=== PATIENT | male | born 1960 | race Caucasian/White ===

== ENCOUNTER 2020-05-05 10:52 | Outpatient (REF) | payer OTHER, SELFPAY ==
[2020-05-05 11:26] LABS: Basophils Absolute Auto 0.1 X10*3/uL (0.0-0.2); Basophils Percent Auto 0.9 % (0-2); Eosinophils Absolute Auto 0.2 X10*3/uL (0.0-0.4); Eosinophils Percent Auto 2.1 % (0-4); Hematocrit 39.8 % (42-52); Hemoglobin 13.1 g/dl (14.0-18.0); Imm Gran Abs Auto 0.05 X10*3/uL (0.00-0.03); Imm Gran Pct Auto 0.6 % (0.0-0.4); Lymphocytes Absolute Auto 2.1 X10*3/uL (1.2-4.9); MANUAL DIFF FLAG NO; Mean Corpuscular HGB Conc 32.9 g/dl (31.0-36.0); Mean Corpuscular Hemoglobin 28.3 pg (27.0-33.0); Monocytes Absolute Auto 0.8 X10*3/uL (0.1-1.2); Monocytes Percent Auto 9.4 % (2-11); Neutrophils Absolute Auto 4.9 X10*3/uL (2.0-8.3); Platelet Count 229 X10*3/uL (160-400); Red Blood Count 4.63 X10*6/uL (4.60-5.80); White Blood Count 8.1 X10*3/uL (4.8-10.8)
[2020-05-05 11:41] LABS: Estimated Average Glucose 157 mg/dL; Hemoglobin A1c % 7.1 %
[2020-05-05 11:52] LABS: Alanine Aminotransferase 36 U/L (0-40); Albumin Level 3.9 g/dL (3.5-5.0); Alkaline Phosphatase 51 U/L (39-117); Anion Gap 13 (12-20); Aspartate Amino Transferase 39 U/L (5-37); Bilirubin Total 0.9 mg/dL (0.0-1.0); Blood Urea Nitrogen 20 mg/dL (9-16); Carbon Dioxide 28 mmol/L (22-29); Chloride 101 mmol/L (96-108); Cholesterol 196 mg/dL; Estimated Glomerular Filt Rate 56; Glucose Fasting 191 mg/dL (60-99); HDL Cholesterol 44 mg/dL; LDL Cholesterol Calculated 127 mg/dl; Potassium 4.4 mmol/L (3.3-5.1); Sodium 138 mmol/L (135-145); Total Protein 7.1 g/dL (6.5-8.0); Triglycerides 129 mg/dL
== END 2020-05-05 10:53 | disposition home or self-care (01) ==
LOC: HO.LAB 10:52
PROVIDERS: PCP Internal Medicine; Visit Provider Internal Medicine
DX: Z00.00 Encounter for general adult medical examination without abnormal findings (principal); E11.9 Type 2 diabetes mellitus without complications
CPT/HCPCS: 36415; 80053; 80061; 83036; 85025

== ENCOUNTER 2020-05-07 10:49 | Outpatient (REF) | payer OTHER, SELFPAY ==
[2020-05-07 13:22] LABS: Creatinine Urine 138.96 mg/dL
== END 2020-05-07 10:50 | disposition home or self-care (01) ==
LOC: HO.LNP 10:49
PROVIDERS: Visit Provider Internal Medicine
DX: E11.9 Type 2 diabetes mellitus without complications (principal)
CPT/HCPCS: 82043

== ENCOUNTER → 2020-08-21 09:27 | Outpatient (BNVA) | payer OTHER, SELFPAY | PROVIDERS: PCP Internal Medicine; Visit Provider Nurse Practitioner Gerontology | DX: E11.65 Type 2 diabetes mellitus with hyperglycemia (principal); E11.42 Type 2 diabetes mellitus with diabetic polyneuropathy; E78.00 Pure hypercholesterolemia, unspecified; I10 Essential (primary) hypertension; E66.01 Morbid (severe) obesity due to excess calories; Z68.41 Body mass index [BMI] 40.0-44.9, adult | CPT/HCPCS: 82947 ==

== ENCOUNTER → 2020-09-06 09:58 | Outpatient (BNVA) | payer OTHER, SELFPAY | PROVIDERS: PCP Internal Medicine; Visit Provider Dietitian, Registered | DX: E11.65 Type 2 diabetes mellitus with hyperglycemia (principal); E11.42 Type 2 diabetes mellitus with diabetic polyneuropathy; I10 Essential (primary) hypertension; E78.5 Hyperlipidemia, unspecified; E66.01 Morbid (severe) obesity due to excess calories; Z68.41 Body mass index [BMI] 40.0-44.9, adult; Z87.891 Personal history of nicotine dependence; Z71.3 Dietary counseling and surveillance | CPT/HCPCS: 97802 ==

== ENCOUNTER → 2020-09-25 08:52 | Outpatient (BNVA) | payer OTHER, SELFPAY | PROVIDERS: PCP Internal Medicine; Visit Provider Nurse Practitioner Gerontology | DX: E11.65 Type 2 diabetes mellitus with hyperglycemia (principal); E11.42 Type 2 diabetes mellitus with diabetic polyneuropathy; E78.00 Pure hypercholesterolemia, unspecified; E66.01 Morbid (severe) obesity due to excess calories; I10 Essential (primary) hypertension; Z68.41 Body mass index [BMI] 40.0-44.9, adult | CPT/HCPCS: 82947 ==

== ENCOUNTER → 2020-10-26 08:46 | Outpatient (BNVA) | payer OTHER, SELFPAY | PROVIDERS: PCP Internal Medicine; Visit Provider Dietitian, Registered | DX: E11.42 Type 2 diabetes mellitus with diabetic polyneuropathy (principal) | CPT/HCPCS: 97803 ==

== ENCOUNTER → 2021-01-11 09:48 | Outpatient (BNVA) | payer OTHER, SELFPAY | PROVIDERS: PCP Internal Medicine; Visit Provider Dietitian, Registered | DX: E11.42 Type 2 diabetes mellitus with diabetic polyneuropathy (principal) | CPT/HCPCS: 97803 ==

== ENCOUNTER → 2021-01-15 10:16 | Outpatient (BNVA) | payer OTHER, SELFPAY | PROVIDERS: PCP Internal Medicine; Visit Provider Nurse Practitioner Gerontology | DX: E11.42 Type 2 diabetes mellitus with diabetic polyneuropathy (principal); E78.00 Pure hypercholesterolemia, unspecified; I10 Essential (primary) hypertension; E66.01 Morbid (severe) obesity due to excess calories; Z68.41 Body mass index [BMI] 40.0-44.9, adult | CPT/HCPCS: 82947; 83036 ==

== ENCOUNTER 2021-01-21 10:13 | Outpatient (REF) | payer OTHER, SELFPAY ==
[2021-01-21 11:28] LABS: Alanine Aminotransferase 45 U/L (0-40); Albumin Level 3.8 g/dL (3.5-5.0); Alkaline Phosphatase 65 U/L (39-117); Anion Gap 14 (12-20); Aspartate Amino Transferase 33 U/L (5-37); Bilirubin Total 0.7 mg/dL (0.0-1.0); Blood Urea Nitrogen 35 mg/dL (9-16); Calcium 9.1 mg/dL (8.4-10.2); Carbon Dioxide 26 mmol/L (22-29); Chloride 104 mmol/L (96-108); Cholesterol 148 mg/dL; Estimated Glomerular Filt Rate 37; Glucose Fasting 113 mg/dL (60-99); HDL Cholesterol 40 mg/dL; LDL Cholesterol Calculated 91 mg/dl; Potassium 4.1 mmol/L (3.3-5.1); Sodium 140 mmol/L (135-145); Triglycerides 86 mg/dL
[2021-01-21 11:50] LABS: Free T4 (Free Thyroxine) 0.93 ng/dL (0.71-1.85); Thyroid Stimulating Hormone 1.18 uIU/mL (0.32-4.0)
[2021-01-21 12:26] LABS: Vitamin B12 400 pg/mL (200-900)
[2021-01-21 13:53] LABS: Creatinine Urine 175.95 mg/dL; Microalbum/Creatinine Ratio Ur 3.4 ug/mg cr
[2021-01-22 08:16] LABS: LDL Cholesterol Direct 91 mg/dL (<100)
== END 2021-01-21 10:14 | disposition home or self-care (01) ==
LOC: HO.LAB 10:13
PROVIDERS: Visit Provider Nurse Practitioner Gerontology
DX: E11.65 Type 2 diabetes mellitus with hyperglycemia (principal)
CPT/HCPCS: 36415; 80053; 80061; 82043; 82607; 83721; 84439; 84443

== ENCOUNTER 2021-03-01 12:39 | Outpatient (REF) | payer OTHER, SELFPAY ==
[2021-03-01 13:36] LABS: Cholesterol 147 mg/dL; Glucose Fasting 108 mg/dL (60-99); HDL Cholesterol 43 mg/dL; LDL Cholesterol Calculated 86 mg/dl; Triglycerides 92 mg/dL
[2021-03-01 13:38] LABS: Alanine Aminotransferase 54 U/L (0-40); Albumin Level 3.9 g/dL (3.5-5.0); Alkaline Phosphatase 68 U/L (39-117); Anion Gap 13 (12-20); Aspartate Amino Transferase 44 U/L (5-37); Bilirubin Total 0.9 mg/dL (0.0-1.0); Blood Urea Nitrogen 22 mg/dL (9-16); Calcium 9.8 mg/dL (8.4-10.2); Carbon Dioxide 28 mmol/L (22-29); Chloride 103 mmol/L (96-108); Estimated Glomerular Filt Rate 43; Glucose Random 108 mg/dL (60-115); Iron 27 mcg/dL (45-160); Percent Iron Saturation 9 % (15-50); Potassium 4.3 mmol/L (3.3-5.1); Sodium 140 mmol/L (135-145); Total Iron Binding Capacity 286 mcg/dL (228-428); Total Protein 7.5 g/dL (6.5-8.0); Unsaturated Iron Binding 259 ug/dL; Uric Acid 11.4 mg/dL (3.4-7.0)
[2021-03-01 13:42] LABS: Estimated Average Glucose 120 mg/dL; Hemoglobin A1c % 5.8 %
[2021-03-01 13:57] LABS: Vitamin D 25-OH Total 26.7 ng/mL (>30)
[2021-03-01 15:57] LABS: Appearance Urine CLEAR; Color Urine YELLOW; Glucose Urine UA NEG (NEG); Leukocyte Esterase Urine NEG (NEG); Nitrite Urine NEG (NEG); Specific Gravity - Urine 1.025 (1.005-1.025); Urine Blood NEG (NEG); Urine Ketones NEG (NEG); Urine Protein NEG (NEG-TRACE)
[2021-03-01 16:18] LABS: Microalbum/Creatinine Ratio Ur 6.8 ug/mg cr; Protein/Creatinine Ratio, Ur 0.05 (<0.2); Total Protein Urine Random 20 mg/dL (<12)
[2021-03-04 11:55] LABS: Complement C3 183 mg/dL (82-185)
[2021-03-04 13:57] LABS: Calcium (PTHI) 9.3 mg/dL (8.6-10.3); PTHI 38 pg/mL (14-64)
== END 2021-03-01 12:40 | disposition home or self-care (01) ==
LOC: HO.LAB 12:39
PROVIDERS: Internal Medicine Nephrology; PCP Internal Medicine; Visit Provider Internal Medicine
DX: Z00.00 Encounter for general adult medical examination without abnormal findings (principal); E11.65 Type 2 diabetes mellitus with hyperglycemia
CPT/HCPCS: 36415; 80053; 80061; 81003; 82043; 82306; 82947; 83036; 83540; 83970; 84156; 84550; 86160

== ENCOUNTER → 2021-04-19 09:38 | Outpatient (BNVA) | payer OTHER, SELFPAY | PROVIDERS: PCP Internal Medicine; Visit Provider Dietitian, Registered | DX: E11.42 Type 2 diabetes mellitus with diabetic polyneuropathy (principal); Z71.3 Dietary counseling and surveillance | CPT/HCPCS: 97803 ==

== ENCOUNTER 2021-05-30 14:23 | Outpatient (REF) | payer OTHER, SELFPAY ==
--- NOTE | ~2021-05-30 | US_ITS ---
EXAMINATION: US RETROPERITONEAL LIMITED (RENAL ONLY) CLINICAL INFORMATION: CKD stage III renal failure. COMPARISON: Ultrasound abdomen complete 03/08/2018. TECHNIQUE: Real-time imaging of the kidneys. FINDINGS: RIGHT KIDNEY: 9.5 x 5.6 x 5.9 cm (SAG x AP x TRV). The kidney is normal in contour and echogenicity. Renal cortical thickness is normal. No calculi or focal parenchymal lesions. No hydronephrosis. LEFT KIDNEY: 12.8 x 5.6 x 5.2 cm (SAG x AP x TRV). The kidney is normal in size, contour, and echogenicity. Renal cortical thickness is normal. No calculi or focal parenchymal lesions. No hydronephrosis. US/US renal BI IMPRESSION: Small right kidney size compared to left side. Otherwise unremarkable.
== END 2021-05-30 14:24 | disposition home or self-care (01) ==
LOC: HO.HMGCX 14:23
PROVIDERS: PCP Internal Medicine; Visit Provider Internal Medicine Nephrology
DX: N18.31 Chronic kidney disease, stage 3a (principal)
CPT/HCPCS: 76775

== ENCOUNTER → 2021-07-22 09:23 | Outpatient (BNVA) | payer OTHER, SELFPAY | PROVIDERS: PCP Internal Medicine; Visit Provider Nurse Practitioner Gerontology | DX: E11.42 Type 2 diabetes mellitus with diabetic polyneuropathy (principal); E78.00 Pure hypercholesterolemia, unspecified; E66.01 Morbid (severe) obesity due to excess calories; I10 Essential (primary) hypertension; Z68.36 Body mass index [BMI] 36.0-36.9, adult; Z79.899 Other long term (current) drug therapy; Z79.84 Long term (current) use of oral hypoglycemic drugs | CPT/HCPCS: 82947; 83036 ==

== ENCOUNTER → 2021-08-20 08:43 | Outpatient (BNVA) | payer OTHER, SELFPAY | PROVIDERS: PCP Internal Medicine; Visit Provider Dietitian, Registered | DX: E11.42 Type 2 diabetes mellitus with diabetic polyneuropathy (principal) | CPT/HCPCS: 97803 ==

== ENCOUNTER → 2022-02-21 08:44 | Outpatient (BNVA) | payer OTHER, SELFPAY | PROVIDERS: PCP Internal Medicine; Visit Provider Dietitian, Registered | DX: E11.42 Type 2 diabetes mellitus with diabetic polyneuropathy (principal) | CPT/HCPCS: 97803 ==

== ENCOUNTER 2022-04-01 09:36 | Outpatient (REF) | payer OTHER, SELFPAY ==
[2022-04-01 11:23] LABS: Estimated Average Glucose 103 mg/dL; Hemoglobin A1c % 5.2 %
[2022-04-01 13:04] LABS: Creatinine Urine 110.39 mg/dL; Total Protein Urine Random 11 mg/dL (<12)
== END 2022-04-01 09:37 | disposition home or self-care (01) ==
LOC: HO.LAB 09:36
PROVIDERS: PCP Internal Medicine; Visit Provider Internal Medicine Nephrology
DX: I12.9 Hypertensive chronic kidney disease with stage 1 through stage 4 chronic kidney disease, or unspecified chronic kidney disease (principal); N18.31 Chronic kidney disease, stage 3a; E79.0 Hyperuricemia without signs of inflammatory arthritis and tophaceous disease
CPT/HCPCS: 36415; 83036; 84156

== ENCOUNTER 2022-05-19 06:38 | Day surgery (SDC) | payer OTHER, SELFPAY ==
--- NOTE | 2022-05-16 13:32 | P.CONAN_ITS ---
Documented by User: Ashley Patton NP 05/16/22 13:39 HPI - Anesthesia Eval Consult details Narrative: 61yo M for Colonoscopy PMFSH Active Problems Active Problems: All Active Problems (Updated 09/20/21 @ 09:43 by Nash Garcia MD) Type 2 diabetes mellitus with obesity (Acute) Type 2 diabetes mellitus with chronic kidney disease (Acute) Diabetes mellitus with coincident hypertension (Acute) Obesity due to excess calories (Acute) Type 2 diabetes mellitus with diabetic polyneuropathy (Acute) Diabetes type 2, uncontrolled (Acute) HTN (hypertension) (Acute) Hyperlipidemia (Acute) Diabetes mellitus (Acute) Past Medical History Medical History (Updated 05/19/22 @ 07:47 by Vanda Newell RN) Diabetes mellitus Diabetes mellitus with coincident hypertension Diabetes type 2, uncontrolled HTN (hypertension) Hyperlipidemia Kidney disease Obesity due to excess calories Type 2 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 Surgical History Surgical History Hx of tooth extraction Social History Social History Household Members: None Housing: House Alcohol intake: current Alcohol intake frequency: holidays/special occasions only Patient Tobacco Use Status: Former Tobacco user Tobacco use type: Cigarette e-Cigarette/Vaping Use: Never Used Second Hand Smoke Exposure: No Use of substances other than those prescribed or required for medical reasons: No Substance Use Type: Former Substance User and Marijuana Are you DNR?: No Advance Directives: No Advance Directives Information Provided: Yes How much weight loss: 2-13 pounds service: No Current occupational status: employed Cognitive needs: No Hearing needs: No Vision needs: No Meds Allergies Allergy/AdvReac Type Severity Reaction Status Date / Time No Known Allergies Allergy Verified 01/31/22 09:17 Home Medications Medication Instructions Recorded Confirmed Last Taken Type blood sugar diagnostic (Accu-Chek 01/15/21 01/31/22 Unknown History Guide test strips) blood-glucose meter (Accu-Chek 01/15/21 01/31/22 Unknown History Guide Me Glucose Meter) nifedipine 30 mg tablet,extended 30 mg PO DAILY 05/17/21 05/19/22 Unknown History release Exam Exam Date and Time: May 16, 2022 1332 Assessment and Plan Assessment Anesthesia Assessment: Chart Reviewed Documented by User: Gavi Link MD 05/19/22 08:16 [facility] Past Medical History Medical History (Updated 05/19/22 @ 07:47 by Vanda Newell RN) Diabetes mellitus Diabetes mellitus with coincident hypertension Diabetes type 2, uncontrolled HTN (hypertension) Hyperlipidemia Kidney disease Obesity due to excess calories Type 2 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 Family history of problems with anesthesia: No Surgical History Surgical History Hx of tooth extraction History of Problems with Anesthesia: No Social History Social History Household Members: None Housing: House Alcohol intake: current Alcohol intake frequency: holidays/special occasions only Patient Tobacco Use Status: Former Tobacco user Tobacco use type: Cigarette e-Cigarette/Vaping Use: Never Used Second Hand Smoke Exposure: No Use of substances other than those prescribed or required for medical reasons: No Substance Use Type: Former Substance User and Marijuana Are you DNR?: No Advance Directives: No Advance Directives Information Provided: Yes How much weight loss: 2-13 pounds service: No Current occupational status: employed Cognitive needs: No Hearing needs: No Vision needs: No Meds Allergies Allergy/AdvReac Type Severity Reaction Status Date / Time No Known Allergies Allergy Verified 01/31/22 09:17 Home Medications Medication Instructions Recorded Confirmed Last Taken Type blood sugar diagnostic (Accu-Chek 01/15/21 01/31/22 Unknown History Guide test strips) blood-glucose meter (Accu-Chek 01/15/21 01/31/22 Unknown History Guide Me Glucose Meter) nifedipine 30 mg tablet,extended 30 mg PO DAILY 05/17/21 05/19/22 Unknown History release Exam Airway Mallampati Class: III TM Dist: >3cm Neck ROM: Full Heart: rrr Lungs: cta Assessment and Plan Assessment Anesthesia Assessment: Anesthesia Plan Discussed Final Anesthetic Review Family History of Problems with Anesthesia: No History of Problems with Anesthesia: No NPO: Yes ASA Class: III Final Preanesthetic Review: No Changes in Pt Med Stat, Meds/Allgs Chart Reviewed and Consent Obtained/Reviewed Patient Risk: Intermediate Procedure Risk: Intermediate Anesthetic Plan Anesthetic Plan: MAC: Disposition: Standard PACU
[2022-05-19 07:47] VITALS: BMI 36.2
[2022-05-19 08:00] VITALS: BP 148/80; PULSE 74; RESP 16; TEMP 36.4; O2SAT 95
[2022-05-19 08:11] LABS: Glucose, Whole Blood 82 mg/dL (60-115)
[2022-05-19] MEDS: Lactated Ringers 1,000 ML 100 ML IVCONT (08:21)
[2022-05-19 09:50] VITALS: BP 116/63; PULSE 76; RESP 20; TEMP 36.9; O2SAT 98
--- NOTE | 2022-05-19 09:51 | PM.OP ---
Brief Operative Note Date of Service: 05/19/22 Pre-op diagnosis: Screening Post-op diagnosis: other (Diverticulosis) Procedure: Colonoscopy to the cecum Surgeon: John Clayton Anesthesia: MAC Was an Chemistry Department Chair used for this Procedure?: No Estimated blood loss (mL): 0 Pathology: none sent Condition: stable Disposition: PACU
[2022-05-19 10:05] VITALS: BP 132/77; PULSE 72; RESP 14; TEMP 36.9; O2SAT 100
--- NOTE | 2022-05-19 12:11 | OP_ITS ---
SURGEON: John Clayton MD INDICATIONS: The patient presents for evaluation of colorectal cancer screening. Full consent has been obtained from him for this, including risks of bleeding and perforation. PREOPERATIVE DIAGNOSIS: Colorectal cancer screening. POSTOPERATIVE DIAGNOSIS: PROCEDURE PERFORMED: Colonoscopy to the cecum. ESTIMATED BLOOD LOSS: COMPLICATIONS: ANESTHESIA: Monitored anesthesia care. ASSISTANTS: SPECIMENS: POSTOPERATIVE DIAGNOSES: Colorectal cancer screening, diverticulosis, and internal hemorrhoids. DESCRIPTION OF PROCEDURE: The patient was placed in the left lateral decubitus position. The digital rectal exam revealed no abnormalities. The Olympus video pediatric colonoscope was entered into the rectum and advanced to the cecum. Advancement to the cecum was difficult and required turning him to the supine position. Once in the cecum, I did identify normal-appearing cecal pouch with appendiceal orifice and a normal-appearing ileocecal valve. The entire cecum and ileocecal valve appeared normal. The scope was then slowly withdrawn assessing all mucosal surfaces carefully. Preparation was excellent after his 2-day prep. I did not visualize any sign of polyps, colitis nor angiodysplasia. There was a mild amount of sigmoid diverticulosis. In the rectum, the scope was retroflexed, visualizing small internal hemorrhoids, but no other pathology. The rectal mucosa appeared normal. The scope was straightened and withdrawn from the patient. He tolerated the procedure well and was returned to the recovery area in stable condition. IMPRESSION: 1. Diverticulosis. 2. Internal hemorrhoids. PLAN: Given his negative exam and negative family history, I would recommend a followup colonoscopy in 10 years for further screening. He would otherwise see me on a p.r.n. basis. He was advised to continue MiraLax and/or fiber supplements on a daily basis to help prevent constipation. MD RIP Mcdowell/DAVIAN / [id number] EDVIN
== END 2022-05-19 10:45 | disposition home or self-care (01) ==
PROVIDERS: PCP Internal Medicine; Visit Provider Internal Medicine
PROC: 0DJD8ZZ Inspection of Lower Intestinal Tract, Via Natural or Artificial Opening Endoscopic (ICD-10-PCS; CPT 45378; principal; 2022-05-19 08:40)
DX: Z12.11 Encounter for screening for malignant neoplasm of colon (principal); K57.30 Diverticulosis of large intestine without perforation or abscess without bleeding; K64.8 Other hemorrhoids; K59.00 Constipation, unspecified; I10 Essential (primary) hypertension; E78.5 Hyperlipidemia, unspecified; N28.9 Disorder of kidney and ureter, unspecified; E11.8 Type 2 diabetes mellitus with unspecified complications; Z79.85 Long-term (current) use of injectable non-insulin antidiabetic drugs; Z79.899 Other long term (current) drug therapy; Z87.891 Personal history of nicotine dependence
CPT/HCPCS: 45378; 82947

== ENCOUNTER 2022-08-17 15:33 | Inpatient (IN) | payer OTHER, SELFPAY ==
--- NOTE | ~2022-08-17 | XR_ITS ---
Examination: XR ankle RT 2V, XR ankle LT 2V Indication: pain Comparison: No pertinent prior studies are currently available for comparison. Technique: 3 views of each ankle obtained. Findings: Left: Mild soft tissue swelling about the ankle. Underlying bony structures are unremarkable with no acute fracture or dislocation seen. Ankle mortise appears intact. No significant ankle joint effusion. No radiopaque foreign body or soft tissue gas. Right: Mild soft tissue swelling seen laterally. There is a subtle curvilinear density along the inferior aspect of the lateral malleolus and a tiny nonspecific avulsion injury cannot be excluded in this location. Would clinically correlate for point tenderness. Ankle mortise appears intact. No other acute bony abnormality seen. Tiny calcaneal heel spur at the attachment point of the Achilles tendon and plantar aponeurosis. XR/XR ankle RT 2V Impression: Mild soft tissue swelling laterally. There is a subtle curvilinear density along the inferior aspect of the right lateral malleolus and a tiny nonspecific avulsion injury cannot be excluded in this location.
--- NOTE | ~2022-08-17 | XR_ITS ---
EXAMINATION: PORTABLE CHEST 1 VIEW CLINICAL INFORMATION: fall?. COMPARISON: No recent pertinent prior studies are available for comparison. TECHNIQUE: Portable frontal view of the chest was obtained. FINDINGS: The lungs are mildly hypoexpanded. No focal infiltrate, effusion, edema, or pneumothorax. Cardiac and mediastinal silhouettes are within normal limits for technique. No acute bony abnormality seen. XR/XR chest 1V IMPRESSION: Mildly hypoexpanded but otherwise no evidence of acute disease.
--- NOTE | ~2022-08-17 | XR_ITS ---
Examination: XR ankle RT 2V, XR ankle LT 2V Indication: pain Comparison: No pertinent prior studies are currently available for comparison. Technique: 3 views of each ankle obtained. Findings: Left: Mild soft tissue swelling about the ankle. Underlying bony structures are unremarkable with no acute fracture or dislocation seen. Ankle mortise appears intact. No significant ankle joint effusion. No radiopaque foreign body or soft tissue gas. Right: Mild soft tissue swelling seen laterally. There is a subtle curvilinear density along the inferior aspect of the lateral malleolus and a tiny nonspecific avulsion injury cannot be excluded in this location. Would clinically correlate for point tenderness. Ankle mortise appears intact. No other acute bony abnormality seen. Tiny calcaneal heel spur at the attachment point of the Achilles tendon and plantar aponeurosis. XR/XR ankle LT 2V Impression: Mild soft tissue swelling laterally. There is a subtle curvilinear density along the inferior aspect of the right lateral malleolus and a tiny nonspecific avulsion injury cannot be excluded in this location.
--- NOTE | ~2022-08-17 | XR_ITS ---
EXAMINATION: XR ABDOMEN KUB CLINICAL INDICATION: Constipation x10 days. COMPARISON: None. TECHNIQUE: AP x4 views of the abdomen. FINDINGS: There is stool throughout the colon with lesser involvement mid sigmoid. The rectum is distended to approximately 9 cm in diameter. There is no gaseous dilatation of bowel or abnormal collections of gas. No pneumatosis. The lung bases are clear. There are multilevel degenerative changes lower thoracic and lumbosacral spine. XR/XR KUB IMPRESSION: -Stool throughout colon. Rectum distended to 9 cm in diameter. -No gaseous dilatation of bowel or abnormal collections of gas. -Lung bases clear.
[2022-08-17 15:35] VITALS: BP 147/54; BP 162/80; PULSE 105; PULSE 96; RESP 22; TEMP 37.3; O2SAT 92; O2SAT 99; BMI 35.6
[2022-08-17 15:43] LABS: Glucose, Whole Blood 124 mg/dL (60-115)
--- NOTE | 2022-08-17 15:57 | ECG_ITS ---
Test Reason : fall Blood Pressure : / mmHG Vent. Rate : 102 BPM Atrial Rate : 102 BPM P-R Int : 124 ms QRS Dur : 082 ms QT Int : 360 ms P-R-T Axes : 024 010 010 degrees QTc Int : 469 ms Sinus tachycardia Nonspecific ST abnormality Abnormal ECG No previous ECGs available Referred By: Jesus Gomez Electronically Signed By:Rick Hernandez
[2022-08-17 16:12] LABS: Basophils Absolute Auto 0.1 X10*3/uL (0.0-0.2); Basophils Percent Auto 0.3 % (0-2); Eosinophils Percent Auto 0.1 % (0-4); Hemoglobin 15.4 g/dl (14.0-18.0); Imm Gran Abs Auto 0.15 X10*3/uL (0.00-0.03); Imm Gran Pct Auto 0.8 % (0.0-0.4); Lymphocytes Absolute Auto 1.1 X10*3/uL (1.2-4.9); Lymphocytes Percent Auto 5.5 % (20-40); MANUAL DIFF FLAG SCAN; Mean Corpuscular HGB Conc 32.8 g/dl (31.0-36.0); Mean Corpuscular Hemoglobin 27.4 pg (27.0-33.0); Mean Corpuscular Volume 83.5 fL (80.0-98.0); Mean Platelet Volume 11.4 fL (9.4-12.4); Monocytes Absolute Auto 2.2 X10*3/uL (0.1-1.2); Monocytes Percent Auto 11.7 % (2-11); Neutrophils Absolute Auto 15.6 x10*3/uL (2.0-8.3); Neutrophils Percent Auto 81.6 % (45-73); Platelet Count 283 X10*3/uL (160-400); Red Blood Count 5.63 X10*6/uL (4.60-5.80); Red Cell Distribution Width 14.5 % (11.0-16.0); SCAN SMEAR FLAG 1
--- NOTE | 2022-08-17 16:27 | ED.GENADULT ---
HPI - General Adult General Chief complaint: General Medical Stated complaint: UNABLE TO GET UP FROM PUDDLE OF WATER PER EMS Time Seen by Provider: 08/17/22 16:04 Source: patient Mode of arrival: EMS Limitations: no limitations History of Present Illness HPI narrative: Patient comes to the emergency room via ambulance from home. Patient states that 7 days ago, patient started having a gout flare in both ankles. Patient was unable to get out of bed for 2 days. Eventually, patient decided that he needed to drink water, somehow tried to get to the kitchen, patient states that he on his way back, some how he ended up in the bathroom floor. Patient states he does not remember what happened. Due to the ankle pain, patient states that he has been unable to get up for the last 5 days. Patient states that a neighbor went to check on him today, found him on the floor, called 911. Patient states that the pain in his ankles is very significant, denies any trauma. Denies any headache or neck pain. At this time, patient complaining of bilateral ankle pain, no other complaints. Related Data Home Medications Medication Instructions Recorded Confirmed blood sugar diagnostic (Accu-Chek 01/15/21 06/06/22 Guide test strips) blood-glucose meter (Accu-Chek 01/15/21 06/06/22 Guide Me Glucose Meter) Previous Rx's Medication Instructions Recorded metformin 500 mg tablet 500 mg PO BID 90 days #180 tabs 07/22/21 lisinopril 40 mg tablet 40 mg PO DAILY #90 tabs 09/09/21 metoprolol tartrate 100 mg tablet 100 mg PO BID #180 tabs 07/20/22 dulaglutide 3 mg/0.5 mL 3 mg (0.5 mL) subcut QWEEK 84 days 07/31/22 subcutaneous pen injector #6 mL (Trulicity) Allergies Allergy/AdvReac Type Severity Reaction Status Date / Time No Known Allergies Allergy Verified 06/06/22 09:34 Review of Systems Review of Systems: Constitutional : No Weight loss, No Fever, No Chills, No Night Sweats, No Fatigue, No Malaise ENT/Mouth : No Hearing loss, No Ear Pain, No Nasal Congestion, No Sinus Pain, No Hoarseness, No sore throat, No Rhinorrhea, No Swallowing Difficulty Eyes: No Eye Pain, No Swelling, No Redness, No Foreign Body, No Discharge, No Vision Changes Cardiovascular : No Chest Pain, No SOB, No Dyspnea on Exertion, No Orthopnea, No Edema, No Palpitations Respiratory : No Cough, No Sputum, No Wheezing, No Smoke Exposure, No Dyspnea Gastrointestinal : No Nausea, No Vomiting, No Diarrhea, No Constipation, No abdominal Pain, No Hematochezia, No Melena Genitourinary : no irregular bleeding, No Dysuria, No Urinary Frequency, No Hematuria, No Urinary Incontinence, No Urgency, No Flank Pain, No Urinary Flow Changes, No Hesitancy Musculoskeletal : Complaining of bilateral ankle pain, No Myalgias, No Joint Swelling Skin : No Skin Lesions, No rash Neuro : No Weakness, No Numbness, No Paresthesias, No Loss of Consciousness, No Dizziness, No Headache Psych : No Anxiety/Panic, No Depression, No SI/HI/AH/VH, No Social Issues, Heme/Lymph: No Bruising, No Bleeding,No Lymphadenopathy Endocrine : No Polyuria, No Polydipsia, No Temperature Intolerance PMFSH Past Medical History Medical History Diabetes mellitus Diabetes mellitus with coincident hypertension Diabetes type 2, uncontrolled HTN (hypertension) Hyperlipidemia Kidney disease Obesity due to excess calories 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 Social History Social History (Reviewed 01/31/22 @ 09:16 by Kristy Rocha [facility]LY [facility]) Household Members: None Housing: House Alcohol intake: never Patient Tobacco Use Status: Former Tobacco user Tobacco use type: Cigarette Smoked in Last 30 Days: No e-Cigarette/Vaping Use: Never Used Second Hand Smoke Exposure: No Use of substances other than those prescribed or required for medical reasons: No Substance Use Type: Former Substance User and Marijuana Advance Directives: No Advance Directives Information Provided: No service: No Current occupational status: employed Cognitive needs: No Hearing needs: No Vision needs: No Physical Exam ED Vital Signs: Vital Signs - 24 hr 08/17/22 15:35 08/17/22 16:43 08/17/22 18:03 Temperature 99.2 F 98.7 F Pulse Rate 105 H 103 H 97 Respiratory Rate 22 H 22 H 20 Blood Pressure 147/54 H 140/56 H 129/62 Pulse Oximetry 99 100 97 Oxygen Delivery Method Room Air Room Air Room Air 08/17/22 20:07 08/17/22 22:04 08/18/22 00:54 Temperature 99.4 F 98.4 F 98.8 F Pulse Rate 97 90 97 Respiratory Rate 18 16 Blood Pressure 129/74 164/80 H 135/72 Pulse Oximetry 100 97 97 Oxygen Delivery Method Room Air Room Air Room Air BMI result Body Mass Index 35.6 Const Other: Appearance: Alert. Oriented X3. No acute distress. Eyes: Pupils equal, round and reactive to light. ENT: Pharynx normal. Neck: Normal inspection. Neck supple. No lymph nodes noted. No crepitus CVS: Normal heart rate and rhythm. Pulses normal. Normal S1 and S2 Respiratory: No respiratory distress. Breath sounds normal. No Wheezing. No rales Abdomen: Soft and nontender. No rigidity. No distention. Skin: Skin warm and dry. Normal skin color. Normal skin turgor. Extremities: No lower extremity edema. No Lacerations. No Rash. Pain to palpation over both ankles, ankles are not swollen, no erythematous or additional warmth to touch Neuro: Oriented X 3. No motor deficit. No sensory deficit. Moving all extremities. No slurred speech. CN 2 through 12 grossly intact Psych: calm, cooperative, normal affect Course Course Course Narrative: All of patient's labs are pending Medications Administered Generic Name Dose Route Start Last Admin Trade Name Freq PRN Reason Stop Dose Admin Heparin Sodium (Porcine) 5,000 unit 08/17/22 23:45 08/17/22 23:50 Heparin Sodium,Porcine 5,000 Unit/Ml Vial SUBCUT 5,000 unit Q12H AYLIN Administration Lactated Ringer's 1,000 mls @ 100 mls/hr 08/17/22 23:45 08/17/22 23:50 Lr IVCONT 100 mls/hr .Q10H AYLIN Administration Discontinued Medications Generic Name Dose Route Start Last Admin Trade Name Freq PRN Reason Stop Dose Admin Sodium Chloride 2,000 mls @ 999 mls/hr 08/17/22 16:13 08/17/22 18:56 Ns IVCONT 08/17/22 18:13 Infused .Q2H1M ONE Infusion Medical Decision Making Medical Decision Making MDM Narrative: -patient's white blood cell count 19, likely reactive leukocytosis, no clear source of infection, no cellulitis present, x-ray negative, urinalysis negative -lactic acid elevated likely secondary to dehydration, patient also has acute kidney injury likely secondary to dehydration as well -patient being admitted for dehydration, acute kidney injury, generalized weakness, patient cannot get up -I discussed the patient with Dr. Bruno Admission/Observation Consideration of admission/observation: Escalation of care including admission/observation considered Consult Healthcare Provider Management of the patient was discussed with: Hospitalist Lab Data [facility] Lab Attestation statement: I reviewed the patient's lab results. 08/17/22 16:04 08/17/22 16:04 Labs: Lab Results 08/17/22 08/17/22 08/17/22 Range/Units 15:40 16:04 16:04 WBC 19.0 H (4.8-10.8) X10*3/uL RBC 5.63 (4.60-5.80) X10*6/uL Hgb 15.4 (14.0-18.0) g/dl Hct 47.0 (42.0-52.0) % MCV 83.5 (80.0-98.0) fL MCH 27.4 (27.0-33.0) pg MCHC 32.8 (31.0-36.0) g/dl RDW 14.5 (11.0-16.0) % Plt Count 283 (160-400) X10*3/uL MPV 11.4 (9.4-12.4) fL Immature Gran % (Auto) 0.8 H (0.0-0.4) % Neut % (Auto) 81.6 H (45-73) % Lymph % (Auto) 5.5 L (20-40) % [place] % (Auto) 11.7 H (2-11) % Eos % (Auto) 0.1 (0-4) % Baso % (Auto) 0.3 (0-2) % Lymph # (Auto) 1.1 L (1.2-4.9) X10*3/uL [place] # (Auto) 2.2 H (0.1-1.2) X10*3/uL Eos # (Auto) 0.0 (0.0-0.4) X10*3/uL Baso # (Auto) 0.1 (0.0-0.2) X10*3/uL Abs Immat Gran (auto) 0.15 H (0.00-0.03) X10*3/uL Absolute Neuts (auto) 15.6 H (2.0-8.3) x10*3/uL Absolute Nucleated RBC 0.000 (0.0-0.012) X10*3/uL Nucleated RBC % (auto) 0.0 (0.0-0.2) /100WBC Smear Tech's Comments VERIFIED PT (10.0-13.1) SEC INR (0.9-1.1) Sodium 143 (135-145) mmol/L Potassium 4.7 (3.3-5.1) mmol/L Chloride 103 (96-108) mmol/L Carbon Dioxide 22 (22-29) mmol/L Anion Gap 23 H (12-20) BUN 41 H (9-16) mg/dL Creatinine 1.55 H (0.5-1.4) mg/dL Estim Creat Clear Calc 63.1 Estimated GFR 46 POC Glucose 124 H (60-115) mg/dL Random Glucose 125 H (60-115) mg/dL Lactic Acid (0.5-2.0) mmol/L Lactic Acid F/U @ 2Hr (0.5-2.0) mmol/L Uric Acid (3.4-7.0) mg/dL Calcium 10.1 (8.4-10.2) mg/dL Magnesium (1.6-2.6) mg/dL Total Bilirubin (0.0-1.0) mg/dL Direct Bilirubin (0.0-0.5) mg/dL AST (5-37) U/L ALT (0-40) U/L Alkaline Phosphatase (39-117) U/L Total Creatine Kinase 1008 H (38-174) U/L Troponin I High Sens (<3.5-35.0) ng/L B-Natriuretic Peptide (<100) pg/mL Total Protein (6.5-8.0) g/dL Albumin (3.5-5.0) g/dL Lipase (8-78) U/L TSH (0.32-4.0) uIU/mL Urine Color Urine Appearance Urine pH (5.0-9.0) Ur Specific [place] (1.005-1.025) Urine Protein (Neg-Trace) mg/dL Urine Glucose (UA) (Negative) mg/dL Urine Ketones (Negative) mg/dL Urine Blood (Negative) Urine Nitrite (Negative) Ur Leukocyte Esterase (Negative) Urine RBC (0-2) /HPF Urine WBC (0-5) /HPF Ur Squamous Epith Cells (0-2) /HPF Urine Bacteria (None Seen) Hyaline Casts (0-2) /LPF Urine Opiates Screen (Not Detect) Urine Fentanyl Screen (Not Detect) Ur Barbiturates Screen (Not Detect) Ur Phencyclidine Scrn (Not Detect) Ur Amphetamines Screen (Not Detect) U Benzodiazepines Scrn (Not Detect) Urine Cocaine Screen (Not Detect) U Marijuana (THC) Screen (Not Detect) Ethyl Alcohol mg/dL 08/17/22 08/17/22 08/17/22 Range/Units 16:04 16:05 16:28 WBC (4.8-10.8) X10*3/uL RBC (4.60-5.80) X10*6/uL Hgb (14.0-18.0) g/dl Hct (42.0-52.0) % MCV (80.0-98.0) fL MCH (27.0-33.0) pg MCHC (31.0-36.0) g/dl RDW (11.0-16.0) % Plt Count (160-400) X10*3/uL MPV (9.4-12.4) fL Immature Gran % (Auto) (0.0-0.4) % Neut % (Auto) (45-73) % Lymph % (Auto) (20-40) % [place] % (Auto) (2-11) % Eos % (Auto) (0-4) % Baso % (Auto) (0-2) % Lymph # (Auto) (1.2-4.9) X10*3/uL [place] # (Auto) (0.1-1.2) X10*3/uL Eos # (Auto) (0.0-0.4) X10*3/uL Baso # (Auto) (0.0-0.2) X10*3/uL Abs Immat Gran (auto) (0.00-0.03) X10*3/uL Absolute Neuts (auto) (2.0-8.3) x10*3/uL Absolute Nucleated RBC (0.0-0.012) X10*3/uL Nucleated RBC % (auto) (0.0-0.2) /100WBC Smear Tech's Comments PT (10.0-13.1) SEC INR (0.9-1.1) Sodium (135-145) mmol/L Potassium (3.3-5.1) mmol/L Chloride (96-108) mmol/L Carbon Dioxide (22-29) mmol/L Anion Gap (12-20) BUN (9-16) mg/dL Creatinine (0.5-1.4) mg/dL Estim Creat Clear Calc Estimated GFR POC Glucose (60-115) mg/dL Random Glucose (60-115) mg/dL Lactic Acid 2.5 H* (0.5-2.0) mmol/L Lactic Acid F/U @ 2Hr (0.5-2.0) mmol/L Uric Acid (3.4-7.0) mg/dL Calcium (8.4-10.2) mg/dL Magnesium (1.6-2.6) mg/dL Total Bilirubin (0.0-1.0) mg/dL Direct Bilirubin (0.0-0.5) mg/dL AST (5-37) U/L ALT (0-40) U/L Alkaline Phosphatase (39-117) U/L Total Creatine Kinase (38-174) U/L Troponin I High Sens 41.2 H (<3.5-35.0) ng/L B-Natriuretic Peptide 135 H (<100) pg/mL Total Protein (6.5-8.0) g/dL Albumin (3.5-5.0) g/dL Lipase (8-78) U/L TSH (0.32-4.0) uIU/mL Urine Color Urine Appearance Urine pH (5.0-9.0) Ur Specific [place] (1.005-1.025) Urine Protein (Neg-Trace) mg/dL Urine Glucose (UA) (Negative) mg/dL Urine Ketones (Negative) mg/dL Urine Blood (Negative) Urine Nitrite (Negative) Ur Leukocyte Esterase (Negative) Urine RBC (0-2) /HPF Urine WBC (0-5) /HPF Ur Squamous Epith Cells (0-2) /HPF Urine Bacteria (None Seen) Hyaline Casts (0-2) /LPF Urine Opiates Screen (Not Detect) Urine Fentanyl Screen (Not Detect) Ur Barbiturates Screen (Not Detect) Ur Phencyclidine Scrn (Not Detect) Ur Amphetamines Screen (Not Detect) U Benzodiazepines Scrn (Not Detect) Urine Cocaine Screen (Not Detect) U Marijuana (THC) Screen (Not Detect) Ethyl Alcohol mg/dL 08/17/22 08/17/22 08/17/22 Range/Units 16:35 16:58 16:58 WBC (4.8-10.8) X10*3/uL RBC (4.60-5.80) X10*6/uL Hgb (14.0-18.0) g/dl Hct (42.0-52.0) % MCV (80.0-98.0) fL MCH (27.0-33.0) pg MCHC (31.0-36.0) g/dl RDW (11.0-16.0) % Plt Count (160-400) X10*3/uL MPV (9.4-12.4) fL Immature Gran % (Auto) (0.0-0.4) % Neut % (Auto) (45-73) % Lymph % (Auto) (20-40) % [place] % (Auto) (2-11) % Eos % (Auto) (0-4) % Baso % (Auto) (0-2) % Lymph # (Auto) (1.2-4.9) X10*3/uL [place] # (Auto) (0.1-1.2) X10*3/uL Eos # (Auto) (0.0-0.4) X10*3/uL Baso # (Auto) (0.0-0.2) X10*3/uL Abs Immat Gran (auto) (0.00-0.03) X10*3/uL Absolute Neuts (auto) (2.0-8.3) x10*3/uL Absolute Nucleated RBC (0.0-0.012) X10*3/uL Nucleated RBC % (auto) (0.0-0.2) /100WBC Smear Tech's Comments PT 15.3 H (10.0-13.1) SEC INR 1.3 H (0.9-1.1) Sodium (135-145) mmol/L Potassium (3.3-5.1) mmol/L Chloride (96-108) mmol/L Carbon Dioxide (22-29) mmol/L Anion Gap (12-20) BUN (9-16) mg/dL Creatinine (0.5-1.4) mg/dL Estim Creat Clear Calc Estimated GFR POC Glucose (60-115) mg/dL Random Glucose (60-115) mg/dL Lactic Acid (0.5-2.0) mmol/L Lactic Acid F/U @ 2Hr (0.5-2.0) mmol/L Uric Acid (3.4-7.0) mg/dL Calcium (8.4-10.2) mg/dL Magnesium (1.6-2.6) mg/dL Total Bilirubin (0.0-1.0) mg/dL Direct Bilirubin (0.0-0.5) mg/dL AST (5-37) U/L ALT (0-40) U/L Alkaline Phosphatase (39-117) U/L Total Creatine Kinase (38-174) U/L Troponin I High Sens (<3.5-35.0) ng/L B-Natriuretic Peptide (<100) pg/mL Total Protein (6.5-8.0) g/dL Albumin (3.5-5.0) g/dL Lipase (8-78) U/L TSH (0.32-4.0) uIU/mL Urine Color Dark Yellow Urine Appearance Clear Urine pH 5.5 (5.0-9.0) Ur Specific [place] 1.025 (1.005-1.025) Urine Protein 100 (2+) H (Neg-Trace) mg/dL Urine Glucose (UA) 250 H (Negative) mg/dL Urine Ketones 15 (Negative) mg/dL Urine Blood Moderate (2+) H (Negative) Urine Nitrite Negative (Negative) Ur Leukocyte Esterase Negative (Negative) Urine RBC 0-2 (0-2) /HPF Urine WBC 0-5 (0-5) /HPF Ur Squamous Epith Cells 0-2 (0-2) /HPF Urine Bacteria None Seen (None Seen) Hyaline Casts 11-20 (0-2) /LPF Urine Opiates Screen Not Detected (Not Detect) Urine Fentanyl Screen Not Detected (Not Detect) Ur Barbiturates Screen Not Detected (Not Detect) Ur Phencyclidine Scrn Not Detected (Not Detect) Ur Amphetamines Screen Not Detected (Not Detect) U Benzodiazepines Scrn Not Detected (Not Detect) Urine Cocaine Screen Not Detected (Not Detect) U Marijuana (THC) Screen Not Detected (Not Detect) Ethyl Alcohol mg/dL 08/17/22 08/17/22 08/17/22 Range/Units 17:32 17:32 19:28 WBC (4.8-10.8) X10*3/uL RBC (4.60-5.80) X10*6/uL Hgb (14.0-18.0) g/dl Hct (42.0-52.0) % MCV (80.0-98.0) fL MCH (27.0-33.0) pg MCHC (31.0-36.0) g/dl RDW (11.0-16.0) % Plt Count (160-400) X10*3/uL MPV (9.4-12.4) fL Immature Gran % (Auto) (0.0-0.4) % Neut % (Auto) (45-73) % Lymph % (Auto) (20-40) % [place] % (Auto) (2-11) % Eos % (Auto) (0-4) % Baso % (Auto) (0-2) % Lymph # (Auto) (1.2-4.9) X10*3/uL [place] # (Auto) (0.1-1.2) X10*3/uL Eos # (Auto) (0.0-0.4) X10*3/uL Baso # (Auto) (0.0-0.2) X10*3/uL Abs Immat Gran (auto) (0.00-0.03) X10*3/uL Absolute Neuts (auto) (2.0-8.3) x10*3/uL Absolute Nucleated RBC (0.0-0.012) X10*3/uL Nucleated RBC % (auto) (0.0-0.2) /100WBC Smear Tech's Comments PT (10.0-13.1) SEC INR (0.9-1.1) Sodium (135-145) mmol/L Potassium (3.3-5.1) mmol/L Chloride (96-108) mmol/L Carbon Dioxide (22-29) mmol/L Anion Gap (12-20) BUN (9-16) mg/dL Creatinine (0.5-1.4) mg/dL Estim Creat Clear Calc Estimated GFR POC Glucose (60-115) mg/dL Random Glucose (60-115) mg/dL Lactic Acid (0.5-2.0) mmol/L Lactic Acid F/U @ 2Hr 1.3 (0.5-2.0) mmol/L Uric Acid 7.8 H (3.4-7.0) mg/dL Calcium (8.4-10.2) mg/dL Magnesium 2.2 (1.6-2.6) mg/dL Total Bilirubin 1.9 H (0.0-1.0) mg/dL Direct Bilirubin 0.8 H (0.0-0.5) mg/dL AST 74 H (5-37) U/L ALT 64 H (0-40) U/L Alkaline Phosphatase 72 (39-117) U/L Total Creatine Kinase (38-174) U/L Troponin I High Sens (<3.5-35.0) ng/L B-Natriuretic Peptide (<100) pg/mL Total Protein 6.6 (6.5-8.0) g/dL Albumin 3.0 L (3.5-5.0) g/dL Lipase 21 (8-78) U/L TSH 0.66 (0.32-4.0) uIU/mL Urine Color Urine Appearance Urine pH (5.0-9.0) Ur Specific [place] (1.005-1.025) Urine Protein (Neg-Trace) mg/dL Urine Glucose (UA) (Negative) mg/dL Urine Ketones (Negative) mg/dL Urine Blood (Negative) Urine Nitrite (Negative) Ur Leukocyte Esterase (Negative) Urine RBC (0-2) /HPF Urine WBC (0-5) /HPF Ur Squamous Epith Cells (0-2) /HPF Urine Bacteria (None Seen) Hyaline Casts (0-2) /LPF Urine Opiates Screen (Not Detect) Urine Fentanyl Screen (Not Detect) Ur Barbiturates Screen (Not Detect) Ur Phencyclidine Scrn (Not Detect) Ur Amphetamines Screen (Not Detect) U Benzodiazepines Scrn (Not Detect) Urine Cocaine Screen (Not Detect) U Marijuana (THC) Screen (Not Detect) Ethyl Alcohol < 10 mg/dL 08/17/22 Range/Units 23:40 WBC (4.8-10.8) X10*3/uL RBC (4.60-5.80) X10*6/uL Hgb (14.0-18.0) g/dl Hct (42.0-52.0) % MCV (80.0-98.0) fL MCH (27.0-33.0) pg MCHC (31.0-36.0) g/dl RDW (11.0-16.0) % Plt Count (160-400) X10*3/uL MPV (9.4-12.4) fL Immature Gran % (Auto) (0.0-0.4) % Neut % (Auto) (45-73) % Lymph % (Auto) (20-40) % [place] % (Auto) (2-11) % Eos % (Auto) (0-4) % Baso % (Auto) (0-2) % Lymph # (Auto) (1.2-4.9) X10*3/uL [place] # (Auto) (0.1-1.2) X10*3/uL Eos # (Auto) (0.0-0.4) X10*3/uL Baso # (Auto) (0.0-0.2) X10*3/uL Abs Immat Gran (auto) (0.00-0.03) X10*3/uL Absolute Neuts (auto) (2.0-8.3) x10*3/uL Absolute Nucleated RBC (0.0-0.012) X10*3/uL Nucleated RBC % (auto) (0.0-0.2) /100WBC Smear Tech's Comments PT (10.0-13.1) SEC INR (0.9-1.1) Sodium (135-145) mmol/L Potassium (3.3-5.1) mmol/L Chloride (96-108) mmol/L Carbon Dioxide (22-29) mmol/L Anion Gap (12-20) BUN (9-16) mg/dL Creatinine (0.5-1.4) mg/dL Estim Creat Clear Calc Estimated GFR POC Glucose (60-115) mg/dL Random Glucose (60-115) mg/dL Lactic Acid (0.5-2.0) mmol/L Lactic Acid F/U @ 2Hr (0.5-2.0) mmol/L Uric Acid (3.4-7.0) mg/dL Calcium (8.4-10.2) mg/dL Magnesium (1.6-2.6) mg/dL Total Bilirubin (0.0-1.0) mg/dL Direct Bilirubin (0.0-0.5) mg/dL AST (5-37) U/L ALT (0-40) U/L Alkaline Phosphatase (39-117) U/L Total Creatine Kinase (38-174) U/L Troponin I High Sens 28.9 (<3.5-35.0) ng/L B-Natriuretic Peptide (<100) pg/mL Total Protein (6.5-8.0) g/dL Albumin (3.5-5.0) g/dL Lipase (8-78) U/L TSH (0.32-4.0) uIU/mL Urine Color Urine Appearance Urine pH (5.0-9.0) Ur Specific [place] (1.005-1.025) Urine Protein (Neg-Trace) mg/dL Urine Glucose (UA) (Negative) mg/dL Urine Ketones (Negative) mg/dL Urine Blood (Negative) Urine Nitrite (Negative) Ur Leukocyte Esterase (Negative) Urine RBC (0-2) /HPF Urine WBC (0-5) /HPF Ur Squamous Epith Cells (0-2) /HPF Urine Bacteria (None Seen) Hyaline Casts (0-2) /LPF Urine Opiates Screen (Not Detect) Urine Fentanyl Screen (Not Detect) Ur Barbiturates Screen (Not Detect) Ur Phencyclidine Scrn (Not Detect) Ur Amphetamines Screen (Not Detect) U Benzodiazepines Scrn (Not Detect) Urine Cocaine Screen (Not Detect) U Marijuana (THC) Screen (Not Detect) Ethyl Alcohol mg/dL Radiology Impression Discussion of test interpretation with radiology: I have reviewed the radiologist's reading. Radiologist Impression: The lungs are mildly hypoexpanded. No focal infiltrate, effusion, edema, or pneumothorax. Cardiac and mediastinal silhouettes are within normal limits for technique. No acute bony abnormality seen. XR/XR chest 1V IMPRESSION: Mildly hypoexpanded but otherwise no evidence of acute disease. ? Findings: Left: Mild soft tissue swelling about the ankle. Underlying bony structures are unremarkable with no acute fracture or dislocation seen. Ankle mortise appears intact. No significant ankle joint effusion. No radiopaque foreign body or soft tissue gas. Right: Mild soft tissue swelling seen laterally. There is a subtle curvilinear density along the inferior aspect of the lateral malleolus and a tiny nonspecific avulsion injury cannot be excluded in this location. Would clinically correlate for point tenderness. Ankle mortise appears intact. No other acute bony abnormality seen. Tiny calcaneal heel spur at the attachment point of the Achilles tendon and plantar aponeurosis. XR/XR ankle RT 2V Impression: Mild soft tissue swelling laterally. There is a subtle curvilinear density along the inferior aspect of the right lateral malleolus and a tiny nonspecific avulsion injury cannot be excluded in this location. ? Critical Care Time Critical Care Time Critical Care Time: Yes Total Critical Care Time: 60 Attestation: Please follow-up with your primary care physician tomorrow. If you have any worsening or new symptoms, please return to the emergency room or call 911 Discharge Plan Discharge Clinical Impression: Acute kidney injury, Dehydration Patient Disposition: Admitted As Inpatient Prescriptions: No Action lisinopril 40 mg tablet 40 mg PO DAILY Qty: 90 8RF metoprolol tartrate 100 mg tablet 100 mg PO BID Qty: 180 1RF Trulicity 3 mg/0.5 mL pen injector 3 mg subcut QWEEK 84 Days Qty: 6 0RF (DME) blood-glucose meter [Accu-Chek Guide Me Glucose Mtr] Misc See Rx Instructions .Route Rx Instructions: As directed (DME) Accu-Chek Guide test strips Strip See Rx Instructions .Route Rx Instructions: As directed one time a day metformin 500 mg tablet 500 mg PO BID 90 Days Qty: 180 3RF
[2022-08-17 16:29] LABS: Lactic Acid 2.5 mmol/L (0.5-2.0)
[2022-08-17] MEDS: 0.9 % Sodium Chloride 2,000 ML 999 ML IVCONT (16:36)
--- NOTE | 2022-08-17 16:38 | PC.NURSE ---
pt AOX4, brought in by ems after being found by neighbor in bathroom. pt was down for several days. pt is alert, aware of situation, but is unsure how he ended up on the floor besides that he was experiencing significant gout perri and went to get a drink of water. rectal temp in triage WNL. other vitals stable as well labs drawn, blood cultures drawn, awaiting EKG. fluids hanging per MAY.
[2022-08-17 16:39] LABS: Troponin-I High Sensitivity 41.2 ng/L (<3.5-35.0)
[2022-08-17 16:40] LABS: Anion Gap 23 (12-20); Blood Urea Nitrogen 41 mg/dL (9-16); Calcium 10.1 mg/dL (8.4-10.2); Carbon Dioxide 22 mmol/L (22-29); Chloride 103 mmol/L (96-108); Creatinine Clr Calc Pharmacy 63.1; Estimated Glomerular Filt Rate 46; Glucose Random 125 mg/dL (60-115); Potassium 4.7 mmol/L (3.3-5.1); Sodium 143 mmol/L (135-145)
[2022-08-17 16:43] VITALS: BP 140/56; PULSE 103; RESP 22; TEMP 37.1; O2SAT 100
[2022-08-17 16:45] LABS: SLIDE REVIEW VERIFIED
[2022-08-17 16:59] LABS: INTERNATIONAL NORM RATIO 1.3 (0.9-1.1); Prothrombin Time 15.3 SEC (10.0-13.1)
[2022-08-17 17:12] LABS: B Type Natriuretic Peptide 135 pg/mL (<100)
[2022-08-17 17:18] LABS: Appearance Urine Clear; Color Urine Dark Yellow; Glucose Urine UA 250 mg/dL (Negative); Leukocyte Esterase Urine Negative (Negative); Nitrite Urine Negative (Negative); PH 5.5 (5.0-9.0); Specific Gravity - Urine 1.025 (1.005-1.025); UMIC TRIGGER UACC YES; Urine Blood Moderate (2+) (Negative); Urine Ketones 15 mg/dL (Negative); Urine Protein 100 (2+) mg/dL (Neg-Trace)
[2022-08-17 17:31] LABS: Bacteria Urine None Seen (None Seen); RBC Urine 0-2 /HPF (0-2); Squamous Epithelial Cell Urine 0-2 /HPF (0-2); WBC Urine 0-5 /HPF (0-5)
[2022-08-17 18:00] LABS: Alanine Aminotransferase 64 U/L (0-40); Alkaline Phosphatase 72 U/L (39-117); Aspartate Amino Transferase 74 U/L (5-37); Bilirubin Direct 0.8 mg/dL (0.0-0.5); Bilirubin Total 1.9 mg/dL (0.0-1.0); Lipase 21 U/L (8-78); Magnesium 2.2 mg/dL (1.6-2.6); Total Protein 6.6 g/dL (6.5-8.0)
[2022-08-17 18:01] LABS: Ethanol < 10 mg/dL; Uric Acid 7.8 mg/dL (3.4-7.0)
[2022-08-17 18:03] VITALS: BP 129/62; PULSE 97; RESP 20; O2SAT 97
[2022-08-17 18:08] LABS: Reflex Lactate? Lactic Acid Added
[2022-08-17 18:13] LABS: TSH reflex Free T4 0.66 uIU/mL (0.32-4.0)
[2022-08-17 19:46] LABS: ~Lactic Acid-LAB USE ONLY 1.3 mmol/L (0.5-2.0)
[2022-08-17 19:51] LABS: Amphetamine Screen Urine Not Detected (Not Detect); Barbiturates, Urine Not Detected (Not Detect); Benzodiazepines Screen Urine Not Detected (Not Detect); Cannabinoid Screen Urine Not Detected (Not Detect); Cocaine Screen Urine Not Detected (Not Detect); Fentanyl, urine Not Detected (Not Detect); Opiate Screen Urine Not Detected (Not Detect); Phencyclidine Screen Urine Not Detected (Not Detect)
[2022-08-17 20:07] VITALS: BP 129/74; PULSE 97; RESP 18; TEMP 37.4; O2SAT 100
--- NOTE | 2022-08-17 20:16 | PC.NURSE ---
fluids finished infusing, pt resting, vitals stable. will cont to [facility]
[2022-08-17 22:04] VITALS: BP 164/80; PULSE 90; TEMP 36.9; O2SAT 97
[2022-08-17] MEDS: Heparin Sodium,Porcine 5,000 UNIT/ML VIAL 5000 UNIT SUBCUT (23:50)
[2022-08-17] MEDS: Lactated Ringers 1,000 ML 100 ML IVCONT (23:50)
--- NOTE | 2022-08-17 23:52 | P.HPHOSP_ITS ---
History of Present Illness Date of Service: 08/17/22 Chief Complaint: Fall and inability to get up 61-year-old male with past medical history of diabetes, HTN, HLD, history of CKD, gout presents to the hospital after falling in the bathroom not being able to get up. Patient reports that he usually gets a flare of gout and this time it was very unusual that he got gout in both his ankles and both his knees as a result he had significant pain. He lives alone, the pain caused him to be bed- bound for 2 days. He states that he realize he was feeling dehydrated and made himself get up to go to the bathroom to get some water. While in the water he sat down-denies losing consciousness denies falling, denies any head trauma, denies any dizziness or headache-and was unable to get off the floor. Patient states that he was on the floor for 5 days when asked him how he knew it was 5 days he states that he was able to keep track of time. After 5 days of trying to get out of the bathroom patient finally called for help and his neighbor heard him which called the ambulance and brought him into the hospital. He states that his knees and ankles are feeling significantly better, he did not use any medications, he reports that he used to use indomethacin for flares but this was stopped due to his underlying CKD. He currently reports no chest pain, no abdominal pain, no nausea or vomiting, no diarrhea constipation, no shortness of breath. No urinary symptoms and no lower extremity edema. On arrival to the ED patient hemodynamically stable with a heart rate of 105, respiratory rate of 22, temp of 99.2 degrees Labs are significant for WBC count of 19.0, INR of 1.3, creatinine of 1.55 which is around his baseline, lactic acid of 2.5, uric acid of 7.8, CPK of 1000, troponin 41, BNP of 135, UA shows no acute infection, urine drug screen negative Patient started on some IV fluids and will be admitted for further management Review of Systems Review of Systems: Yes all other systems are reviewed and are negative [facility] Medical History Diabetes mellitus Diabetes mellitus with coincident hypertension Diabetes type 2, uncontrolled HTN (hypertension) Hyperlipidemia Kidney disease Obesity due to excess calories 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 Surgical History Hx of tooth extraction Social History Household Members: None Housing: House Alcohol intake: never Patient Tobacco Use Status: Former Tobacco user Tobacco use type: Cigarette Smoked in Last 30 Days: No e-Cigarette/Vaping Use: Never Used Second Hand Smoke Exposure: No Use of substances other than those prescribed or required for medical reasons: No Substance Use Type: Former Substance User and Marijuana Advance Directives: No Advance Directives Information Provided: No service: No Current occupational status: employed Cognitive needs: No Hearing needs: No Vision needs: No Meds Allergies Allergy/AdvReac Type Severity Reaction Status Date / Time No Known Allergies Allergy Verified 06/06/22 09:34 Home Medications Medication Instructions Recorded Confirmed Last Taken Type blood sugar diagnostic (Accu-Chek 01/15/21 06/06/22 Unknown History Guide test strips) blood-glucose meter (Accu-Chek 01/15/21 06/06/22 Unknown History Guide Me Glucose Meter) Physical Exam Vital Signs and Narrative: Vital Signs: Last Vital Signs Temp 98.4 F 08/17/22 22:04 Pulse 90 08/17/22 22:04 Resp 18 08/17/22 20:07 BP 164/80 H 08/17/22 22:04 Pulse Ox 97 08/17/22 22:04 O2 Del Method Room Air 08/17/22 22:04 BMI result Body Mass Index 35.6 Const: General: cooperative and no acute distress Orientation/consciousness: patient oriented x3 Eyes: General: appearance normal, both eyes and all related structures Pupils: Equal, round and reactive pupils present Resp: Effort & Inspection: normal respiratory effort Auscultation: clear to auscultation bilaterally Cardio: Rate: regular rate Rhythm: regular rhythm GI: Palpation (GI): Soft to palpation Auscultation: normal bowel sounds Skin: General skin exam: no rashes or lesions noted Neuro: General: patient oriented x3 Cranial nerves: Yes Equal, round and reactive pupils present Cognition (Neuro): normal cognition Extrem: Other: There is slight effusion was mild warmth in the left knee with no erythema, or tenderness. No tenderness in the ankles General: Yes no pedal edema Results Labs 08/17/22 16:04 08/17/22 16:04 Labs: Laboratory Results - last 24 hr 08/17/22 08/17/22 08/17/22 15:40 16:04 16:04 MCV 83.5 MCH 27.4 MCHC 32.8 RDW 14.5 Plt Count 283 MPV 11.4 Immature Gran % (Auto) 0.8 H Neut % (Auto) 81.6 H Lymph % (Auto) 5.5 L [place] % (Auto) 11.7 H Eos % (Auto) 0.1 Baso % (Auto) 0.3 Lymph # (Auto) 1.1 L [place] # (Auto) 2.2 H Eos # (Auto) 0.0 Baso # (Auto) 0.1 Abs Immat Gran (auto) 0.15 H Absolute Neuts (auto) 15.6 H Absolute Nucleated RBC 0.000 Nucleated RBC % (auto) 0.0 Smear Tech's Comments VERIFIED PT INR Anion Gap 23 H Estim Creat Clear Calc 63.1 Estimated GFR 46 POC Glucose 124 H Random Glucose 125 H Lactic Acid Lactic Acid F/U @ 2Hr Uric Acid Calcium 10.1 Magnesium Total Bilirubin Direct Bilirubin AST ALT Alkaline Phosphatase Total Creatine Kinase 1008 H Troponin I High Sens B-Natriuretic Peptide Total Protein Albumin Lipase TSH Urine Color Urine Appearance Urine pH Ur Specific [place] Urine Protein Urine Glucose (UA) Urine Ketones Urine Blood Urine Nitrite Ur Leukocyte Esterase Urine RBC Urine WBC Ur Squamous Epith Cells Urine Bacteria Hyaline Casts Urine Opiates Screen Urine Fentanyl Screen Ur Barbiturates Screen Ur Phencyclidine Scrn Ur Amphetamines Screen U Benzodiazepines Scrn Urine Cocaine Screen U Marijuana (THC) Screen Ethyl Alcohol 08/17/22 08/17/22 08/17/22 16:04 16:05 16:28 MCV MCH MCHC RDW Plt Count MPV Immature Gran % (Auto) Neut % (Auto) Lymph % (Auto) [place] % (Auto) Eos % (Auto) Baso % (Auto) Lymph # (Auto) [place] # (Auto) Eos # (Auto) Baso # (Auto) Abs Immat Gran (auto) Absolute Neuts (auto) Absolute Nucleated RBC Nucleated RBC % (auto) Smear Tech's Comments PT INR Anion Gap Estim Creat Clear Calc Estimated GFR POC Glucose Random Glucose Lactic Acid 2.5 H* Lactic Acid F/U @ 2Hr Uric Acid Calcium Magnesium Total Bilirubin Direct Bilirubin AST ALT Alkaline Phosphatase Total Creatine Kinase Troponin I High Sens 41.2 H B-Natriuretic Peptide 135 H Total Protein Albumin Lipase TSH Urine Color Urine Appearance Urine pH Ur Specific [place] Urine Protein Urine Glucose (UA) Urine Ketones Urine Blood Urine Nitrite Ur Leukocyte Esterase Urine RBC Urine WBC Ur Squamous Epith Cells Urine Bacteria Hyaline Casts Urine Opiates Screen Urine Fentanyl Screen Ur Barbiturates Screen Ur Phencyclidine Scrn Ur Amphetamines Screen U Benzodiazepines Scrn Urine Cocaine Screen U Marijuana (THC) Screen Ethyl Alcohol 08/17/22 08/17/22 08/17/22 16:35 16:58 16:58 MCV MCH MCHC RDW Plt Count MPV Immature Gran % (Auto) Neut % (Auto) Lymph % (Auto) [place] % (Auto) Eos % (Auto) Baso % (Auto) Lymph # (Auto) [place] # (Auto) Eos # (Auto) Baso # (Auto) Abs Immat Gran (auto) Absolute Neuts (auto) Absolute Nucleated RBC Nucleated RBC % (auto) Smear Tech's Comments PT 15.3 H INR 1.3 H Anion Gap Estim Creat Clear Calc Estimated GFR POC Glucose Random Glucose Lactic Acid Lactic Acid F/U @ 2Hr Uric Acid Calcium Magnesium Total Bilirubin Direct Bilirubin AST ALT Alkaline Phosphatase Total Creatine Kinase Troponin I High Sens B-Natriuretic Peptide Total Protein Albumin Lipase TSH Urine Color Dark Yellow Urine Appearance Clear Urine pH 5.5 Ur Specific [place] 1.025 Urine Protein 100 (2+) H Urine Glucose (UA) 250 H Urine Ketones 15 Urine Blood Moderate (2+) H Urine Nitrite Negative Ur Leukocyte Esterase Negative Urine RBC 0-2 Urine WBC 0-5 Ur Squamous Epith Cells 0-2 Urine Bacteria None Seen Hyaline Casts 11-20 Urine Opiates Screen Not Detected Urine Fentanyl Screen Not Detected Ur Barbiturates Screen Not Detected Ur Phencyclidine Scrn Not Detected Ur Amphetamines Screen Not Detected U Benzodiazepines Scrn Not Detected Urine Cocaine Screen Not Detected U Marijuana (THC) Screen Not Detected Ethyl Alcohol 08/17/22 08/17/22 08/17/22 17:32 17:32 19:28 MCV MCH MCHC RDW Plt Count MPV Immature Gran % (Auto) Neut % (Auto) Lymph % (Auto) [place] % (Auto) Eos % (Auto) Baso % (Auto) Lymph # (Auto) [place] # (Auto) Eos # (Auto) Baso # (Auto) Abs Immat Gran (auto) Absolute Neuts (auto) Absolute Nucleated RBC Nucleated RBC % (auto) Smear Tech's Comments PT INR Anion Gap Estim Creat Clear Calc Estimated GFR POC Glucose Random Glucose Lactic Acid Lactic Acid F/U @ 2Hr 1.3 Uric Acid 7.8 H Calcium Magnesium 2.2 Total Bilirubin 1.9 H Direct Bilirubin 0.8 H AST 74 H ALT 64 H Alkaline Phosphatase 72 Total Creatine Kinase Troponin I High Sens B-Natriuretic Peptide Total Protein 6.6 Albumin 3.0 L Lipase 21 TSH 0.66 Urine Color Urine Appearance Urine pH Ur Specific [place] Urine Protein Urine Glucose (UA) Urine Ketones Urine Blood Urine Nitrite Ur Leukocyte Esterase Urine RBC Urine WBC Ur Squamous Epith Cells Urine Bacteria Hyaline Casts Urine Opiates Screen Urine Fentanyl Screen Ur Barbiturates Screen Ur Phencyclidine Scrn Ur Amphetamines Screen U Benzodiazepines Scrn Urine Cocaine Screen U Marijuana (THC) Screen Ethyl Alcohol < 10 Imaging Radiologist's Impressions: Impressions Ankle X-Ray 08/17/22 17:26 Impression: Mild soft tissue swelling laterally. There is a subtle curvilinear density along the inferior aspect of the right lateral malleolus and a tiny nonspecific avulsion injury cannot be excluded in this location. Ankle X-Ray 08/17/22 17:26 Impression: Mild soft tissue swelling laterally. There is a subtle curvilinear density along the inferior aspect of the right lateral malleolus and a tiny nonspecific avulsion injury cannot be excluded in this location. Chest X-Ray 08/17/22 17:26 IMPRESSION: Mildly hypoexpanded but otherwise no evidence of acute disease. Assessment and Plan (1) Rhabdomyolysis: Status: Acute (2) Dehydration: Status: Acute (3) Lactic acidosis: Status: Acute (4) Leukocytosis: Status: Acute (5) CKD (chronic kidney disease) stage 2, GFR 60-89 ml/min: Status: Acute (6) Weakness: Status: Acute Plan 61-year-old male with past medical history of diabetes, hypertension as well as gout test who comes into the hospital after stating that he fell in the bathroom floor and was unable to get up for several days. # acute rhabdomyolysis - likely secondary to fall, immobility - will start IV fluids - follow CPK # lactic acidosis - secondary to dehydration - no sign of infection, UA negative, chest x-ray negative, no skin or soft tissue infection - IV fluids - trend # leukocytosis - likely secondary to dehydration as well as reactive secondary to fall as well as gout - no acute infection otherwise - follow CBC # gout - all side of the flare at this time, patient reports feeling improved - will hold off on staring steroids at this time - monitor symptoms # CKD - at baseline - follow BMP # weakness - secondary to fall - physical therapy consulted # hypertension - stable - will resume home antihypertensives # diabetes - low-dose sliding scale insulin - diabetic diet DVT prophylaxis: Heparin subQ Given patient's need for further treatment of rhabdomyolysis in the setting of CKD patient require minimum 2 nights inpatient hospital stay for close monitorin g Time Spent With Patient Time: Total time managing care of this patient today ____ minutes. Quality Stroke Does the patient have a stroke diagnosis?: No VTE Prior VTE?: No VTE Risk Level:: Medical - moderate - high VTE Device Contraindication: Treatment Not Indicated VTE Drug Contraindication: N/A - Med Ordered
[2022-08-18] VITALS (8 sets, daily range): BP systolic 135–179; BP diastolic 65–80; PULSE 84–100; RESP 16–20; TEMP 36.3–37.6; O2SAT 94–98; BMI 37.0
[2022-08-18 00:05] LABS: Troponin-I High Sensitivity 28.9 ng/L (<3.5-35.0)
[2022-08-18 04:57] LABS: Glucose, Whole Blood 124 mg/dL (60-115)
[2022-08-18 06:43] LABS: Alanine Aminotransferase 62 U/L (0-40); Albumin Level 2.8 g/dL (3.5-5.0); Alkaline Phosphatase 66 U/L (39-117); Anion Gap 15 (12-20); Aspartate Amino Transferase 67 U/L (5-37); Bilirubin Total 1.3 mg/dL (0.0-1.0); Blood Urea Nitrogen 41 mg/dL (9-16); Carbon Dioxide 22 mmol/L (22-29); Chloride 107 mmol/L (96-108); Creatinine Clr Calc Pharmacy 77.3; Estimated Glomerular Filt Rate 56; Glucose Random 117 mg/dL (60-115); Sodium 140 mmol/L (135-145); Total Protein 6.2 g/dL (6.5-8.0)
[2022-08-18 07:19] LABS: Glucose, Whole Blood 113 mg/dL (60-115)
--- NOTE | 2022-08-18 08:26 | MHC.CM.PN ---
CM met with Patient at bedside and addressed RAINES with him, providing Patient with the original and placing a copy on the chart. Patient lives alone in a house and he required no services nor DME [employer]. Home/self care is the goal and CM has initiated and will follow for dc planning. Patient is Manuel minaya and his PCP is Dr. Nash Garcia.
[2022-08-18 08:34] LABS: Procalcitonin 0.49 ng/mL
--- NOTE | 2022-08-18 08:46 | PHA.MEDREC ---
Pharmacy Consult ? Medication Reconciliation Pharmacy has completed the medication reconciliation. Spoke with patient. He confirmed all of his medications. He claims that he last took his medications on August 10. He says he uses the Trulicity every Thursday but did not use it yesterday.
[2022-08-18] MEDS: Acetaminophen 325 MG TABLET 650 MG PO ×2 (09:34→17:13)
--- NOTE | 2022-08-18 10:26 | HO.PM.IMPN ---
Subjective Subjective Date of Service: 08/18/22 Interval History: Very weak C/o knee swelling and pain bilaterally, worse than ankle swelling No cough No dyspnea Review of Systems Review of Systems: Yes all other systems are reviewed and are negative Physical Exam Vital Signs: Vital Signs: Last Vital Signs Temp 98.0 F 08/18/22 07:20 Pulse 93 08/18/22 07:20 Resp 20 08/18/22 07:20 BP 143/66 H 08/18/22 07:20 Pulse Ox 98 08/18/22 07:20 O2 Del Method Room Air 08/18/22 07:20 BMI result Body Mass Index 37.0 Gen: in no acute distress HEENT: sclera anicteric, moist mucus membranes Neck: supple Lungs: clear to auscultation bilaterally Heart: regular rate and rhythm, no murmurs Abd: soft, non-tender, non-distended Ext: bilateral ankles swollen, bilateral knees swollen left worse than right with warmth + erythema Skin: warm/well-perfused Neuro: alert and oriented x3, no focal findings Psych: appropriate affect Objective Data Active Medications Acetaminophen (Acetaminophen 325 Mg Tablet) 650 mg PO Q6H PRN PRN Reason: Pain, Mild (Pain Scale 1-3) Last Admin: 08/18/22 09:34 Dose: 650 mg Documented By: SKYLAR Allopurinol (Allopurinol 300 Mg Tablet) 300 mg PO DAILY [facility] Atorvastatin Calcium (Atorvastatin Calcium 40 Mg Tablet) 40 mg PO DAILY [facility] Docusate Sodium (Docusate Sodium 100 Mg Capsule) 100 mg PO DAILY PRN PRN Reason: Constipation Glucose (Glucose Gel 15 Gm Gel..Gram.) 15 gm PO Q15M PRN; Protocol PRN Reason: per Hypoglycemia Standing Ord. Heparin Sodium (Porcine) (Heparin Sodium,Porcine 5,000 Unit/Ml Vial) 5,000 unit SUBCUT Q12H [facility] Last Admin: 08/17/22 23:50 Dose: 5,000 unit Documented By: ALEXEY-KELBY Lactated Ringer's (Lr) 1,000 mls @ 100 mls/hr IVCONT .Q10H [facility] Last Admin: 08/17/22 23:50 Dose: 100 mls/hr Documented By: ALEXEY-KELBY Dextrose (D10) 250 mls @ 750 mls/hr IV Q15M PRN; Protocol PRN Reason: per Hypoglycemia Standing Ord. Insulin Human Lispro (Insulin Lispro 100 Unit/Ml 3 Ml Vial) 0.1 - 10 unit SUBCUT QIDACHS [facility]; Protocol Last Admin: 08/18/22 08:13 Dose: Not Given Documented By: SKYLAR Non-Admin Reason: No Insulin Coverage Lisinopril (Lisinopril 40 Mg Tablet) 40 mg PO DAILY [facility]; Protocol Metoprolol Tartrate (Metoprolol Tartrate 100 Mg Tablet) 100 mg PO BID [facility]; Protocol Ondansetron HCl (Ondansetron Hcl 4 Mg/2 Ml Vial) 4 mg IVPUSH Q8H PRN PRN Reason: Nausea and Vomiting Pharmacy Consult (Consult Rx Perform Med Rec) 1 each MISCELLANE ONCE PRN PRN Reason: Consult order Prednisone (Prednisone 20 Mg Tablet) 60 mg PO DAILY [facility] Labs 08/17/22 16:04 08/18/22 05:29 Labs: Laboratory Results - last 24 hr 08/17/22 08/17/22 08/17/22 15:40 16:04 16:04 MCV 83.5 MCH 27.4 MCHC 32.8 RDW 14.5 Plt Count 283 MPV 11.4 Immature Gran % (Auto) 0.8 H Neut % (Auto) 81.6 H Lymph % (Auto) 5.5 L [place] % (Auto) 11.7 H Eos % (Auto) 0.1 Baso % (Auto) 0.3 Lymph # (Auto) 1.1 L [place] # (Auto) 2.2 H Eos # (Auto) 0.0 Baso # (Auto) 0.1 Abs Immat Gran (auto) 0.15 H Absolute Neuts (auto) 15.6 H Absolute Nucleated RBC 0.000 Nucleated RBC % (auto) 0.0 Smear Tech's Comments VERIFIED PT INR Anion Gap 23 H Estim Creat Clear Calc 63.1 Estimated GFR 46 POC Glucose 124 H Random Glucose 125 H Lactic Acid Lactic Acid F/U @ 2Hr Uric Acid Calcium 10.1 Magnesium Total Bilirubin Direct Bilirubin AST ALT Alkaline Phosphatase Total Creatine Kinase 1008 H Troponin I High Sens C-Reactive Protein B-Natriuretic Peptide Total Protein Albumin Lipase Procalcitonin TSH Urine Color Urine Appearance Urine pH Ur Specific [place] Urine Protein Urine Glucose (UA) Urine Ketones Urine Blood Urine Nitrite Ur Leukocyte Esterase Urine RBC Urine WBC Ur Squamous Epith Cells Urine Bacteria Hyaline Casts Urine Opiates Screen Urine Fentanyl Screen Ur Barbiturates Screen Ur Phencyclidine Scrn Ur Amphetamines Screen U Benzodiazepines Scrn Urine Cocaine Screen U Marijuana (THC) Screen Ethyl Alcohol 08/17/22 08/17/22 08/17/22 16:04 16:05 16:28 MCV MCH MCHC RDW Plt Count MPV Immature Gran % (Auto) Neut % (Auto) Lymph % (Auto) [place] % (Auto) Eos % (Auto) Baso % (Auto) Lymph # (Auto) [place] # (Auto) Eos # (Auto) Baso # (Auto) Abs Immat Gran (auto) Absolute Neuts (auto) Absolute Nucleated RBC Nucleated RBC % (auto) Smear Tech's Comments PT INR Anion Gap Estim Creat Clear Calc Estimated GFR POC Glucose Random Glucose Lactic Acid 2.5 H* Lactic Acid F/U @ 2Hr Uric Acid Calcium Magnesium Total Bilirubin Direct Bilirubin AST ALT Alkaline Phosphatase Total Creatine Kinase Troponin I High Sens 41.2 H C-Reactive Protein B-Natriuretic Peptide 135 H Total Protein Albumin Lipase Procalcitonin TSH Urine Color Urine Appearance Urine pH Ur Specific [place] Urine Protein Urine Glucose (UA) Urine Ketones Urine Blood Urine Nitrite Ur Leukocyte Esterase Urine RBC Urine WBC Ur Squamous Epith Cells Urine Bacteria Hyaline Casts Urine Opiates Screen Urine Fentanyl Screen Ur Barbiturates Screen Ur Phencyclidine Scrn Ur Amphetamines Screen U Benzodiazepines Scrn Urine Cocaine Screen U Marijuana (THC) Screen Ethyl Alcohol 08/17/22 08/17/22 08/17/22 16:35 16:58 16:58 MCV MCH MCHC RDW Plt Count MPV Immature Gran % (Auto) Neut % (Auto) Lymph % (Auto) [place] % (Auto) Eos % (Auto) Baso % (Auto) Lymph # (Auto) [place] # (Auto) Eos # (Auto) Baso # (Auto) Abs Immat Gran (auto) Absolute Neuts (auto) Absolute Nucleated RBC Nucleated RBC % (auto) Smear Tech's Comments PT 15.3 H INR 1.3 H Anion Gap Estim Creat Clear Calc Estimated GFR POC Glucose Random Glucose Lactic Acid Lactic Acid F/U @ 2Hr Uric Acid Calcium Magnesium Total Bilirubin Direct Bilirubin AST ALT Alkaline Phosphatase Total Creatine Kinase Troponin I High Sens C-Reactive Protein B-Natriuretic Peptide Total Protein Albumin Lipase Procalcitonin TSH Urine Color Dark Yellow Urine Appearance Clear Urine pH 5.5 Ur Specific [place] 1.025 Urine Protein 100 (2+) H Urine Glucose (UA) 250 H Urine Ketones 15 Urine Blood Moderate (2+) H Urine Nitrite Negative Ur Leukocyte Esterase Negative Urine RBC 0-2 Urine WBC 0-5 Ur Squamous Epith Cells 0-2 Urine Bacteria None Seen Hyaline Casts 11-20 Urine Opiates Screen Not Detected Urine Fentanyl Screen Not Detected Ur Barbiturates Screen Not Detected Ur Phencyclidine Scrn Not Detected Ur Amphetamines Screen Not Detected U Benzodiazepines Scrn Not Detected Urine Cocaine Screen Not Detected U Marijuana (THC) Screen Not Detected Ethyl Alcohol 08/17/22 08/17/22 08/17/22 17:32 17:32 19:28 MCV MCH MCHC RDW Plt Count MPV Immature Gran % (Auto) Neut % (Auto) Lymph % (Auto) [place] % (Auto) Eos % (Auto) Baso % (Auto) Lymph # (Auto) [place] # (Auto) Eos # (Auto) Baso # (Auto) Abs Immat Gran (auto) Absolute Neuts (auto) Absolute Nucleated RBC Nucleated RBC % (auto) Smear Tech's Comments PT INR Anion Gap Estim Creat Clear Calc Estimated GFR POC Glucose Random Glucose Lactic Acid Lactic Acid F/U @ 2Hr 1.3 Uric Acid 7.8 H Calcium Magnesium 2.2 Total Bilirubin 1.9 H Direct Bilirubin 0.8 H AST 74 H ALT 64 H Alkaline Phosphatase 72 Total Creatine Kinase Troponin I High Sens C-Reactive Protein B-Natriuretic Peptide Total Protein 6.6 Albumin 3.0 L Lipase 21 Procalcitonin TSH 0.66 Urine Color Urine Appearance Urine pH Ur Specific [place] Urine Protein Urine Glucose (UA) Urine Ketones Urine Blood Urine Nitrite Ur Leukocyte Esterase Urine RBC Urine WBC Ur Squamous Epith Cells Urine Bacteria Hyaline Casts Urine Opiates Screen Urine Fentanyl Screen Ur Barbiturates Screen Ur Phencyclidine Scrn Ur Amphetamines Screen U Benzodiazepines Scrn Urine Cocaine Screen U Marijuana (THC) Screen Ethyl Alcohol < 10 08/17/22 08/18/22 08/18/22 23:40 04:51 05:29 MCV MCH MCHC RDW Plt Count MPV Immature Gran % (Auto) Neut % (Auto) Lymph % (Auto) [place] % (Auto) Eos % (Auto) Baso % (Auto) Lymph # (Auto) [place] # (Auto) Eos # (Auto) Baso # (Auto) Abs Immat Gran (auto) Absolute Neuts (auto) Absolute Nucleated RBC Nucleated RBC % (auto) Smear Tech's Comments PT INR Anion Gap 15 Estim Creat Clear Calc 77.3 Estimated GFR 56 POC Glucose 124 H Random Glucose 117 H Lactic Acid Lactic Acid F/U @ 2Hr Uric Acid Calcium 9.0 D Magnesium Total Bilirubin 1.3 H Direct Bilirubin AST 67 H ALT 62 H Alkaline Phosphatase 66 Total Creatine Kinase 916 H Troponin I High Sens 28.9 C-Reactive Protein 29.10 H B-Natriuretic Peptide Total Protein 6.2 L Albumin 2.8 L Lipase Procalcitonin 0.49 TSH Urine Color Urine Appearance Urine pH Ur Specific [place] Urine Protein Urine Glucose (UA) Urine Ketones Urine Blood Urine Nitrite Ur Leukocyte Esterase Urine RBC Urine WBC Ur Squamous Epith Cells Urine Bacteria Hyaline Casts Urine Opiates Screen Urine Fentanyl Screen Ur Barbiturates Screen Ur Phencyclidine Scrn Ur Amphetamines Screen U Benzodiazepines Scrn Urine Cocaine Screen U Marijuana (THC) Screen Ethyl Alcohol 08/18/22 07:08 MCV MCH MCHC RDW Plt Count MPV Immature Gran % (Auto) Neut % (Auto) Lymph % (Auto) [place] % (Auto) Eos % (Auto) Baso % (Auto) Lymph # (Auto) [place] # (Auto) Eos # (Auto) Baso # (Auto) Abs Immat Gran (auto) Absolute Neuts (auto) Absolute Nucleated RBC Nucleated RBC % (auto) Smear Tech's Comments PT INR Anion Gap Estim Creat Clear Calc Estimated GFR POC Glucose 113 Random Glucose Lactic Acid Lactic Acid F/U @ 2Hr Uric Acid Calcium Magnesium Total Bilirubin Direct Bilirubin AST ALT Alkaline Phosphatase Total Creatine Kinase Troponin I High Sens C-Reactive Protein B-Natriuretic Peptide Total Protein Albumin Lipase Procalcitonin TSH Urine Color Urine Appearance Urine pH Ur Specific [place] Urine Protein Urine Glucose (UA) Urine Ketones Urine Blood Urine Nitrite Ur Leukocyte Esterase Urine RBC Urine WBC Ur Squamous Epith Cells Urine Bacteria Hyaline Casts Urine Opiates Screen Urine Fentanyl Screen Ur Barbiturates Screen Ur Phencyclidine Scrn Ur Amphetamines Screen U Benzodiazepines Scrn Urine Cocaine Screen U Marijuana (THC) Screen Ethyl Alcohol Assessment and Plan (1) Leukocytosis: Status: Acute (2) Lactic acidosis: Status: Acute (3) Rhabdomyolysis: Status: Acute (4) CKD (chronic kidney disease) stage 2, GFR 60-89 ml/min: Status: Acute Plan d#2 61yo M with DM2, HTN, gout presenting after falling in the bathroom floor due to gout flare and being down for 5 days presenting with rhabdomyolysis, lactic acidosis, leukocytosis # acute rhabdomyolysis - mild, continue IV fluids, recheck CPK in AM # lactic acidosis - due to dehydration, resolved with IV fluid hydration # leukocytosis - likely reactive due to gout, no signs of infection otherwise, recheck CBCd in AM # gout flare - start prednisone 60 mg/d and taper - resume allopurinol # MARLEEN/CKD2 - SCr back at baseline after IV fluid hydration # HTN - resume lisinopril + metoprolol # transaminasemia - likely due to rhabdomyolysis but screen for HBV/HCV # HLD - resume statin # DM2 - correction-dose lispro, DM diet # VTE ppx: UFH # dispo: PT consult In my clinical judgment, the patient requires continued inpatient hospitalization for the following reasons: IV hydration PT evaluation, placement Time Spent With Patient Time: Total time managing care of this patient today __35__ minutes. Quality Stroke Does the patient have a stroke diagnosis?: No VTE Prior VTE?: No VTE Risk Level:: Medical - moderate - high VTE Device Contraindication: Treatment Not Indicated VTE Drug Contraindication: N/A - Med Ordered
[2022-08-18 11:23] LABS: Glucose, Whole Blood 154 mg/dL (60-115)
[2022-08-18] MEDS: predniSONE 20 MG TABLET 60 MG PO (12:24)
[2022-08-18] MEDS: Heparin Sodium,Porcine 5,000 UNIT/ML VIAL 5000 UNIT SUBCUT (12:24)
[2022-08-18] MEDS: Lactated Ringers 1,000 ML 100 ML IVCONT (12:25)
[2022-08-18] MEDS: Insulin Lispro 100 UNIT/ML 3 ML VIAL SUBCUT ×3 (12:26→21:15)
[2022-08-18 16:39] LABS: Glucose, Whole Blood 159 mg/dL (60-115)
--- NOTE | 2022-08-18 19:32 | PC.NURSE ---
Elevated BP Provider notified of BP 179/80 at 15:51, provider states would not trat 179/80 in the hospital
[2022-08-18 20:01] LABS: Glucose, Whole Blood 156 mg/dL (60-115)
[2022-08-18] MEDS: Metoprolol Tartrate 100 MG TABLET PO (21:15)
[2022-08-19] VITALS (8 sets, daily range): BP systolic 138–168; BP diastolic 66–85; PULSE 65–80; RESP 17–20; TEMP 36.2–36.9; O2SAT 94–97; BMI 36.2
[2022-08-19] MEDS: Heparin Sodium,Porcine 5,000 UNIT/ML VIAL 5000 UNIT SUBCUT ×3 (01:53→23:52)
[2022-08-19] MEDS: Acetaminophen 325 MG TABLET 650 MG PO ×2 (01:58→21:40)
[2022-08-19] MEDS: Lactated Ringers 1,000 ML 100 ML IVCONT ×2 (02:01→17:29)
[2022-08-19 05:48] LABS: Glucose, Whole Blood 124 mg/dL (60-115)
[2022-08-19 06:40] LABS: Hematocrit 39.7 % (42.0-52.0); Hemoglobin 12.9 g/dl (14.0-18.0); Mean Corpuscular HGB Conc 32.5 g/dl (31.0-36.0); Mean Corpuscular Hemoglobin 27.2 pg (27.0-33.0); Mean Corpuscular Volume 83.8 fL (80.0-98.0); Mean Platelet Volume 10.2 fL (9.4-12.4); Platelet Count 294 X10*3/uL (160-400); Red Blood Count 4.74 X10*6/uL (4.60-5.80); Red Cell Distribution Width 14.3 % (11.0-16.0); White Blood Count 13.9 X10*3/uL (4.8-10.8)
[2022-08-19 07:03] LABS: Alanine Aminotransferase 70 U/L (0-40); Albumin Level 2.8 g/dL (3.5-5.0); Alkaline Phosphatase 69 U/L (39-117); Anion Gap 12 (12-20); Aspartate Amino Transferase 76 U/L (5-37); Bilirubin Total 0.8 mg/dL (0.0-1.0); Blood Urea Nitrogen 30 mg/dL (9-16); Calcium 9.1 mg/dL (8.4-10.2); Carbon Dioxide 25 mmol/L (22-29); Chloride 109 mmol/L (96-108); Creatinine Clr Calc Pharmacy 91.3; Estimated Glomerular Filt Rate > 60; Glucose Random 137 mg/dL (60-115); Potassium 4.2 mmol/L (3.3-5.1); Sodium 142 mmol/L (135-145); Total Protein 6.3 g/dL (6.5-8.0)
[2022-08-19 07:42] LABS: Glucose, Whole Blood 131 mg/dL (60-115)
[2022-08-19] MEDS: lisinopriL 40 MG TABLET PO (08:51)
[2022-08-19] MEDS: Metoprolol Tartrate 100 MG TABLET PO ×2 (08:51→21:39)
[2022-08-19] MEDS: allopurinoL 300 MG TABLET PO (08:51)
[2022-08-19] MEDS: predniSONE 20 MG TABLET 60 MG PO (08:52)
[2022-08-19] MEDS: Atorvastatin Calcium 40 MG TABLET PO (08:52)
[2022-08-19] MEDS: vancomycin/NS 2,000 MG/500 ML PLAST..BAG 250 MG IV (10:01)
--- NOTE | 2022-08-19 10:23 | PHA.PROG ---
Admission Date/Time: August 17, 2022 23:49 Indication: BACTEREMIA Weight in k.7 kg Adjusted body weight in K.26 [place] body weight in K.3 Obesity Dosing Indication % IBW:36.2 Serum Creatinine - Last 168 Hours 08/17/22 08/18/22 08/19/22 16:04 05:29 06:26 Creatinine 1.55 H 1.29 1.08 Estimated CrCl and GFR - Last 168 Hours 08/17/22 08/18/22 08/19/22 16:04 05:29 06:26 Estim Creat Clear Calc 63.1 77.3 91.3 Estimated GFR 46 56 > 60 Vancomycin Loading Dose: 2000 MG Current Vancomycin Dosing Regimen: 1000 MG Q12H Vancomycin Monitoring using AUC goal of 400 - 600 range with trough as surrogate marker: Expected auc 577 after 4th dose and trough of 17.6. Date and Time for next Vancomycin Level to be drawn: 08/20 @1999 Pharmacist Comments on Vancomycin Plan: Will continue to monitor renal function and adjust dose if needed before 4th dose. Used obese model for dosing. May need reduction to 750 mg q12 if trough gets too high but insight shows highest trough at 17.8 after 8th dose. Vancomycin dosing will take advantage of [employer] as a clinical decision support tool that uses Bayesian modeling to calculate individual patient's pharmacokinetic parameters and forecast the patient's drug concentration time course with the target goal AUC 24 range of 400 - 600 mg/L/hr.
[2022-08-19 11:44] LABS: Glucose, Whole Blood 120 mg/dL (60-115)
--- NOTE | 2022-08-19 12:02 | HO.PM.IMPN ---
Subjective Subjective Date of Service: 08/19/22 Interval History: Still has significant knee swelling 1 BCx positive for GPCs Review of Systems Review of Systems: Yes all other systems are reviewed and are negative Physical Exam Vital Signs: Vital Signs: Last Vital Signs Temp 98.3 F 08/19/22 11:13 Pulse 76 08/19/22 11:13 Resp 20 08/19/22 11:13 BP 140/72 H 08/19/22 11:13 Pulse Ox 97 08/19/22 11:13 O2 Del Method Room Air 08/19/22 11:13 BMI result Body Mass Index 36.2 Gen: in no acute distress HEENT: sclera anicteric, moist mucus membranes Neck: supple Lungs: clear to auscultation bilaterally Heart: regular rate and rhythm, no murmurs Abd: soft, non-tender, non-distended Ext: bilateral ankles mildly swollen, bilateral knees swollen R>L with warmth + erythema Skin: warm/well-perfused Neuro: alert and oriented x3, no focal findings Psych: appropriate affect Objective Data Active Medications Acetaminophen (Acetaminophen 325 Mg Tablet) 650 mg PO Q6H PRN PRN Reason: Pain, Mild (Pain Scale 1-3) Last Admin: 08/19/22 01:58 Dose: 650 mg Documented By: LATA Allopurinol (Allopurinol 300 Mg Tablet) 300 mg PO DAILY [facility] Last Admin: 08/19/22 08:51 Dose: 300 mg Documented By: KRISHNA Atorvastatin Calcium (Atorvastatin Calcium 40 Mg Tablet) 40 mg PO DAILY [facility] Last Admin: 08/19/22 08:52 Dose: 40 mg Documented By: KRISHNA Docusate Sodium (Docusate Sodium 100 Mg Capsule) 100 mg PO DAILY PRN PRN Reason: Constipation Glucose (Glucose Gel 15 Gm Gel..Gram.) 15 gm PO Q15M PRN; Protocol PRN Reason: per Hypoglycemia Standing Ord. Heparin Sodium (Porcine) (Heparin Sodium,Porcine 5,000 Unit/Ml Vial) 5,000 unit SUBCUT Q12H [facility] Last Admin: 08/19/22 01:53 Dose: 5,000 unit Documented By: LATA Lactated Ringer's (Lr) 1,000 mls @ 100 mls/hr IVCONT .Q10H [facility] Last Admin: 08/19/22 02:01 Dose: 100 mls/hr Documented By: LATA Dextrose (D10) 250 mls @ 750 mls/hr IV Q15M PRN; Protocol PRN Reason: per Hypoglycemia Standing Ord. Vancomycin HCl 1,000 mg/ (Sodium Chloride) 270 mls @ 270 mls/hr IV Q12H [facility] Insulin Human Lispro (Insulin Lispro 100 Unit/Ml 3 Ml Vial) 0.1 - 10 unit SUBCUT QIDACHS [facility]; Protocol Last Admin: 08/19/22 08:38 Dose: Not Given Documented By: KRISHNA Non-Admin Reason: No Insulin Coverage Lisinopril (Lisinopril 40 Mg Tablet) 40 mg PO DAILY [facility]; Protocol Last Admin: 08/19/22 08:51 Dose: 40 mg Documented By: KRISHNA Metoprolol Tartrate (Metoprolol Tartrate 100 Mg Tablet) 100 mg PO BID [facility]; Protocol Last Admin: 08/19/22 08:51 Dose: 100 mg Documented By: KRISHNA Ondansetron HCl (Ondansetron Hcl 4 Mg/2 Ml Vial) 4 mg IVPUSH Q8H PRN PRN Reason: Nausea and Vomiting Pharmacy Consult (Consult Rx Perform Med Rec) 1 each MISCELLANE ONCE PRN PRN Reason: Consult order Pharmacy Consult (Consult Rx Vancomycin Dosing) 1 each MISCELLANE DAILY PRN PRN Reason: Consult order Prednisone (Prednisone 20 Mg Tablet) 60 mg PO DAILY [facility] Last Admin: 08/19/22 08:52 Dose: 60 mg Documented By: KRISHNA Labs 08/19/22 06:26 08/19/22 06:26 Labs: Laboratory Results - last 24 hr 08/18/22 08/18/22 08/19/22 16:16 19:32 05:44 MCV MCH MCHC RDW Plt Count MPV Absolute Nucleated RBC Nucleated RBC % (auto) Anion Gap Estim Creat Clear Calc Estimated GFR POC Glucose 159 H 156 H 124 H Random Glucose Calcium Total Bilirubin AST ALT Alkaline Phosphatase Total Creatine Kinase Total Protein Albumin 08/19/22 08/19/22 08/19/22 06:26 06:26 07:11 MCV 83.8 MCH 27.2 MCHC 32.5 RDW 14.3 Plt Count 294 MPV 10.2 Absolute Nucleated RBC 0.000 Nucleated RBC % (auto) 0.0 Anion Gap 12 Estim Creat Clear Calc 91.3 Estimated GFR > 60 POC Glucose 131 H Random Glucose 137 H Calcium 9.1 Total Bilirubin 0.8 AST 76 H ALT 70 H Alkaline Phosphatase 69 Total Creatine Kinase 1258 H Total Protein 6.3 L Albumin 2.8 L 08/19/22 11:40 MCV MCH MCHC RDW Plt Count MPV Absolute Nucleated RBC Nucleated RBC % (auto) Anion Gap Estim Creat Clear Calc Estimated GFR POC Glucose 120 H Random Glucose Calcium Total Bilirubin AST ALT Alkaline Phosphatase Total Creatine Kinase Total Protein Albumin Microbiology Microbiology Results: Microbiology 08/17/22 16:04 Blood Culture - Preliminary Blood - Venous Prelim: GPC Gram Stain only 08/17/22 16:27 Blood Culture - Preliminary Blood - Venous No growth after 24 hours. Assessment and Plan (1) Leukocytosis: Status: Acute (2) Lactic acidosis: Status: Acute (3) Rhabdomyolysis: Status: Acute (4) CKD (chronic kidney disease) stage 2, GFR 60-89 ml/min: Status: Acute Plan d#3 61yo M with DM2, HTN, gout presenting after falling in the bathroom floor due to gout flare and being down for 5 days presenting with rhabdomyolysis, lactic acidosis, leukocytosis # acute rhabdomyolysis - mild, continue IV fluids, recheck CPK in AM # lactic acidosis - due to dehydration, resolved with IV fluid hydration # possible bacteremia - place on vancomycin out of precaution pending speciation, d#1 # leukocytosis - likely reactive due to gout, recheck CBCd in AM # gout flare - started prednisone 60 mg/d 08/18/22 and taper in a few days - resumed allopurinol # MARLEEN/CKD2 - SCr back at baseline after IV fluid hydration # HTN - resumed lisinopril + metoprolol # transaminasemia - likely due to rhabdomyolysis but screen for HBV/HCV pending # HLD - resumed statin # DM2 - correction-dose lispro, DM diet # VTE ppx: UFH # dispo: PT consulted, AIR recommended In my clinical judgment, the patient requires continued inpatient hospitalization for the following reasons: IV hydration PT evaluation, placement question of bacteraemia Time Spent With Patient Time: Total time managing care of this patient today ___40_ minutes. Quality Stroke Does the patient have a stroke diagnosis?: No VTE Prior VTE?: No VTE Risk Level:: Medical - moderate - high VTE Device Contraindication: Treatment Not Indicated VTE Drug Contraindication: N/A - Med Ordered
--- NOTE | 2022-08-19 14:42 | MHC.CM.PN ---
Per RN CM, Patient is being switched from OBSERVATION to INPATIENT.
[2022-08-19 16:16] LABS: Glucose, Whole Blood 160 mg/dL (60-115)
[2022-08-19] MEDS: Insulin Lispro 100 UNIT/ML 3 ML VIAL SUBCUT (17:30)
[2022-08-19 20:16] LABS: Glucose, Whole Blood 137 mg/dL (60-115)
[2022-08-19] MEDS: vancomycin HCL 1,000 MG in 0.9 % Sodium Chloride 250 ML 270 MG IV (21:39)
[2022-08-20] VITALS (7 sets, daily range): BP systolic 137–156; BP diastolic 69–80; PULSE 62–78; RESP 16–20; TEMP 36–37.1; O2SAT 94–98; BMI 37.3
[2022-08-20 05:08] LABS: ~HepC Num1 0.13 S/CO (0.00-0.79); ~Hepatitis C Antibody Nonreactive (Nonreactive)
[2022-08-20 05:14] LABS: HBS Num1 0.11 mIU/mL (0-7.99); HBc Num1 0.26 S/CO (0.00-0.79); HBsAGNum1 0.28 S/CO (0.00-0.99); Hepatitis B Core Antibody Nonreactive (Nonreactive); Hepatitis B Surface Antigen Negative (Negative); ~Hepatitis B Surface Antibody NONREACTIVE (Nonreactive)
[2022-08-20 06:07] LABS: Hematocrit 35.2 % (42.0-52.0); Hemoglobin 11.5 g/dl (14.0-18.0); Mean Corpuscular HGB Conc 32.7 g/dl (31.0-36.0); Mean Corpuscular Hemoglobin 27.1 pg (27.0-33.0); Mean Platelet Volume 9.8 fL (9.4-12.4); Platelet Count 284 X10*3/uL (160-400); Red Blood Count 4.24 X10*6/uL (4.60-5.80); Red Cell Distribution Width 14.5 % (11.0-16.0); White Blood Count 15.5 X10*3/uL (4.8-10.8)
[2022-08-20 06:25] LABS: Anion Gap 11 (12-20); Blood Urea Nitrogen 31 mg/dL (9-16); C Reactive Protein 9.62 mg/dL (< or = 0.50); Calcium 8.7 mg/dL (8.4-10.2); Carbon Dioxide 23 mmol/L (22-29); Chloride 113 mmol/L (96-108); Creatinine Clr Calc Pharmacy 96.3; Estimated Glomerular Filt Rate > 60; Glucose Random 112 mg/dL (60-115); Sodium 143 mmol/L (135-145)
[2022-08-20 07:58] LABS: Glucose, Whole Blood 94 mg/dL (60-115)
[2022-08-20] MEDS: allopurinoL 300 MG TABLET PO (08:15)
[2022-08-20] MEDS: Atorvastatin Calcium 40 MG TABLET PO (08:15)
[2022-08-20] MEDS: Metoprolol Tartrate 100 MG TABLET PO ×2 (08:15→20:49)
[2022-08-20] MEDS: lisinopriL 40 MG TABLET PO (08:15)
[2022-08-20] MEDS: predniSONE 20 MG TABLET 60 MG PO (08:15)
[2022-08-20] MEDS: vancomycin HCL 1,000 MG in 0.9 % Sodium Chloride 250 ML 270 MG IV ×2 (09:48→21:41)
[2022-08-20] MEDS: Acetaminophen 325 MG TABLET 650 MG PO ×2 (10:29→16:50)
[2022-08-20] MEDS: Heparin Sodium,Porcine 5,000 UNIT/ML VIAL 5000 UNIT SUBCUT ×2 (10:30→23:56)
[2022-08-20 11:57] LABS: Glucose, Whole Blood 123 mg/dL (60-115)
[2022-08-20] MEDS: Lactulose 20 GM/30 ML SOLUTION PO (12:16)
[2022-08-20] MEDS: polyethylene glycoL 3350 17 GM POWD.PACK PO ×2 (12:16→20:49)
[2022-08-20] MEDS: Sennosides/Docusate Sodium TABLET 2 TAB PO ×2 (12:16→20:49)
[2022-08-20 13:05] LABS: COVID-19 Test Negative (Negative); IDNOW Serial# 08D9AD1C
--- NOTE | 2022-08-20 14:21 | HO.PM.IMPN ---
Subjective Subjective Date of Service: 08/20/22 Interval History: knees improving no BM x 12d Review of Systems Review of Systems: Yes all other systems are reviewed and are negative Physical Exam Vital Signs: Vital Signs: Last Vital Signs Temp 98.1 F 08/20/22 11:39 Pulse 69 08/20/22 11:39 Resp 20 08/20/22 11:39 BP 156/80 H 08/20/22 11:39 Pulse Ox 95 08/20/22 11:39 O2 Del Method Room Air 08/20/22 11:39 BMI result Body Mass Index 37.3 Gen: in no acute distress HEENT: sclera anicteric, moist mucus membranes Neck: supple Lungs: clear to auscultation bilaterally Heart: regular rate and rhythm, no murmurs Abd: soft, non-tender, non-distended Ext: bilateral ankles mildly swollen, bilateral knees swollen R>L with warmth + less erythema Skin: warm/well-perfused Neuro: alert and oriented x3, no focal findings Psych: appropriate affect Objective Data Active Medications Acetaminophen (Acetaminophen 325 Mg Tablet) 650 mg PO Q6H PRN PRN Reason: Pain, Mild (Pain Scale 1-3) Last Admin: 08/20/22 10:29 Dose: 650 mg Documented By: CECY Allopurinol (Allopurinol 300 Mg Tablet) 300 mg PO DAILY [facility] Last Admin: 08/20/22 08:15 Dose: 300 mg Documented By: CECY Atorvastatin Calcium (Atorvastatin Calcium 40 Mg Tablet) 40 mg PO DAILY [facility] Last Admin: 08/20/22 08:15 Dose: 40 mg Documented By: CECY Docusate Sodium (Docusate Sodium 100 Mg Capsule) 100 mg PO DAILY PRN PRN Reason: Constipation Glucose (Glucose Gel 15 Gm Gel..Gram.) 15 gm PO Q15M PRN; Protocol PRN Reason: per Hypoglycemia Standing Ord. Heparin Sodium (Porcine) (Heparin Sodium,Porcine 5,000 Unit/Ml Vial) 5,000 unit SUBCUT Q12H [facility] Last Admin: 08/20/22 10:30 Dose: 5,000 unit Documented By: CECY Dextrose (D10) 250 mls @ 750 mls/hr IV Q15M PRN; Protocol PRN Reason: per Hypoglycemia Standing Ord. Vancomycin HCl 1,000 mg/ (Sodium Chloride) 270 mls @ 270 mls/hr IV Q12H [facility] Last Infusion: 08/20/22 10:48 Dose: 0 mls/hr Documented By: CECY Insulin Human Lispro (Insulin Lispro 100 Unit/Ml 3 Ml Vial) 0.1 - 10 unit SUBCUT QIDACHS [facility]; Protocol Last Admin: 08/20/22 12:06 Dose: Not Given Documented By: CECY Non-Admin Reason: No Insulin Coverage Lisinopril (Lisinopril 40 Mg Tablet) 40 mg PO DAILY [facility]; Protocol Last Admin: 08/20/22 08:15 Dose: 40 mg Documented By: CECY Metoprolol Tartrate (Metoprolol Tartrate 100 Mg Tablet) 100 mg PO BID [facility]; Protocol Last Admin: 08/20/22 08:15 Dose: 100 mg Documented By: CECY Ondansetron HCl (Ondansetron Hcl 4 Mg/2 Ml Vial) 4 mg IVPUSH Q8H PRN PRN Reason: Nausea and Vomiting Pharmacy Consult (Consult Rx Perform Med Rec) 1 each MISCELLANE ONCE PRN PRN Reason: Consult order Pharmacy Consult (Consult Rx Vancomycin Dosing) 1 each MISCELLANE DAILY PRN PRN Reason: Consult order Polyethylene Glycol (Polyethylene Glycol 3350 17 Gm Powd.Pack) 17 gm PO BID [facility] Last Admin: 08/20/22 12:16 Dose: 17 gm Documented By: CECY Prednisone (Prednisone 20 Mg Tablet) 60 mg PO DAILY [facility] Last Admin: 08/20/22 08:15 Dose: 60 mg Documented By: CECY Senna/Docusate Sodium (Sennosides/Docusate Sodium Tablet) 2 tab PO BID [facility] Last Admin: 08/20/22 12:16 Dose: 2 tab Documented By: CECY Labs 08/20/22 05:41 08/20/22 05:41 Labs: Laboratory Results - last 24 hr 08/19/22 08/19/22 08/19/22 06:26 06:26 15:46 MCV MCH MCHC RDW Plt Count MPV Absolute Nucleated RBC Nucleated RBC % (auto) Anion Gap Estim Creat Clear Calc Estimated GFR POC Glucose 160 H Random Glucose Calcium Total Creatine Kinase C-Reactive Protein COVID-19 ([facility]IINCK) COVID-19 Clin Com Hep Bs Antigen Negative Hep Bs Antibody NONREACTIVE Hep B Core Total Ab Nonreactive Hepatitis C Ab (EIA) Nonreactive 08/19/22 08/20/22 08/20/22 20:13 05:41 05:41 MCV 83.0 MCH 27.1 MCHC 32.7 RDW 14.5 Plt Count 284 MPV 9.8 Absolute Nucleated RBC 0.000 Nucleated RBC % (auto) 0.0 Anion Gap 11 L Estim Creat Clear Calc 96.3 Estimated GFR > 60 POC Glucose 137 H Random Glucose 112 Calcium 8.7 Total Creatine Kinase 459 H C-Reactive Protein 9.62 H COVID-19 (DOMINICK) COVID-19 Clin Com Hep Bs Antigen Hep Bs Antibody Hep B Core Total Ab Hepatitis C Ab (EIA) 08/20/22 08/20/22 08/20/22 07:55 11:41 12:20 MCV MCH MCHC RDW Plt Count MPV Absolute Nucleated RBC Nucleated RBC % (auto) Anion Gap Estim Creat Clear Calc Estimated GFR POC Glucose 94 123 H Random Glucose Calcium Total Creatine Kinase C-Reactive Protein COVID-19 (DOMINICK) Negative COVID-19 Clin Com See Note Hep Bs Antigen Hep Bs Antibody Hep B Core Total Ab Hepatitis C Ab (EIA) Microbiology Microbiology Results: Microbiology 08/17/22 16:04 Blood Culture - Final Blood - Venous Coag negative Staphylococcus 08/17/22 16:27 Blood Culture - Preliminary Blood - Venous No growth after 48 hours. Assessment and Plan (1) Leukocytosis: Status: Acute (2) Lactic acidosis: Status: Acute (3) Rhabdomyolysis: Status: Acute (4) CKD (chronic kidney disease) stage 2, GFR 60-89 ml/min: Status: Acute Plan d#4 61yo M with DM2, HTN, gout presenting after falling in the bathroom floor due to gout flare and being down for 5 days presenting with rhabdomyolysis, lactic acidosis, leukocytosis # acute rhabdomyolysis - resolved, d/c IV fluids # lactic acidosis - due to dehydration, resolved with IV fluid hydration # possible bacteremia, NOT - growing coag-neg Staphy, d/c vancomycin # leukocytosis - likely reactive due to gout # gout flare - started prednisone 60 mg/d 08/18/22 and taper in a few days - resumed allopurinol # MARLEEN/CKD2 - SCr back at baseline after IV fluid hydration # HTN - resumed lisinopril + metoprolol # transaminasemia - likely due to rhabdomyolysis, HBV/HCV negative # HLD - resumed statin # DM2 - correction-dose lispro, DM diet # VTE ppx: UFH # dispo: PT consulted, AIR recommended, awaiting authorization In my clinical judgment, the patient requires continued inpatient hospitalization for the following reasons: placement Time Spent With Patient Time: Total time managing care of this patient today __35__ minutes. Quality Stroke Does the patient have a stroke diagnosis?: No VTE Prior VTE?: No VTE Risk Level:: Medical - moderate - high VTE Device Contraindication: Treatment Not Indicated VTE Drug Contraindication: N/A - Med Ordered
[2022-08-20 16:03] LABS: Glucose, Whole Blood 151 mg/dL (60-115)
[2022-08-20] MEDS: Insulin Lispro 100 UNIT/ML 3 ML VIAL SUBCUT (16:47)
[2022-08-20 19:51] LABS: Glucose, Whole Blood 126 mg/dL (60-115)
[2022-08-20 20:56] LABS: Vancomycin Trough 16.7 mcg/mL (10.0-20.0)
[2022-08-21] VITALS (7 sets, daily range): BP systolic 132–179; BP diastolic 79–81; PULSE 61–81; RESP 16–20; TEMP 36.5–37.3; O2SAT 96–98
[2022-08-21 06:43] LABS: Creatinine Clr Calc Pharmacy 94.5; Estimated Glomerular Filt Rate > 60
[2022-08-21 07:35] LABS: Glucose, Whole Blood 82 mg/dL (60-115)
[2022-08-21] MEDS: Sennosides/Docusate Sodium TABLET 2 TAB PO ×2 (09:55→21:36)
[2022-08-21] MEDS: Heparin Sodium,Porcine 5,000 UNIT/ML VIAL 5000 UNIT SUBCUT ×2 (09:55→21:35)
[2022-08-21] MEDS: Atorvastatin Calcium 40 MG TABLET PO (09:55)
[2022-08-21] MEDS: lisinopriL 40 MG TABLET PO (09:55)
[2022-08-21] MEDS: predniSONE 20 MG TABLET 60 MG PO (09:55)
[2022-08-21] MEDS: vancomycin HCL 1,000 MG in 0.9 % Sodium Chloride 250 ML 270 MG IV (09:55)
[2022-08-21] MEDS: Metoprolol Tartrate 100 MG TABLET PO ×2 (09:55→21:36)
[2022-08-21] MEDS: polyethylene glycoL 3350 17 GM POWD.PACK PO ×2 (09:55→21:36)
[2022-08-21] MEDS: allopurinoL 300 MG TABLET PO (09:55)
--- NOTE | 2022-08-21 11:43 | PM.DS ---
DS: Providers Provider Date of Service: 08/22/22 Date of admission: 08/19/22 14:49 Date of discharge: 08/22/22 Primary care physician: Nash Garcia MD Attending physician on discharge: Je Glasgow Discharging clinician: Luly Venegas DS: Diagnosis Discharge Diagnosis (1) Leukocytosis: Status: Acute (2) Lactic acidosis: Status: Resolved (3) Rhabdomyolysis: Status: Resolved (4) CKD (chronic kidney disease) stage 2, GFR 60-89 ml/min: Status: Inactive DS: Summary Hospital Course Hospital Course: From H&P on day day of admission 61-year-old male with past medical history of diabetes, HTN, HLD, history of CKD, gout presents to the hospital after falling in the bathroom not being able to get up.? Patient reports that he usually gets a flare of gout and this time it was very unusual that he got gout in both his ankles and both his knees as a result he had significant pain.? He lives alone, the pain caused him to be bed-bound for 2 days.? He states that he realize he was feeling dehydrated and made himself get up to go to the bathroom to get some water.? While in the water he sat down-denies losing consciousness denies falling, denies any head trauma, denies any dizziness or headache-and was unable to get off the floor.? Patient states that he was on the floor for 5 days when asked him how he knew it was 5 days he states that he was able to keep track of time.? After 5 days of trying to get out of the bathroom patient finally called for help and his neighbor heard him which called the ambulance and brought him into the hospital. He states that his knees and ankles are feeling significantly better, he did not use any medications, he reports that he used to use indomethacin for flares but this was stopped due to his underlying CKD. He currently reports no chest pain, no abdominal pain, no nausea or vomiting, no diarrhea constipation, no shortness of breath.? No urinary symptoms and no lower extremity edema.? On arrival to the ED patient hemodynamically stable with a heart rate of 105, respiratory rate of 22, temp of 99.2 degrees Labs are significant for WBC count of 19.0, INR of 1.3, creatinine of 1.55 which is around his baseline, lactic acid of 2.5, uric acid of 7.8, CPK of 1000, troponin 41, BNP of 135, UA shows no acute infection, urine drug screen negative Patient started on some IV fluids and will be admitted for further management presenting after falling in the bathroom floor due to gout flare and reportedly being down for 5 days presenting with rhabdomyolysis, lactic acidosis, leukocytosis acute rhabdomyolysis - resolved lactic acidosis - due to dehydration, resolved with IV fluid hydration possible bacteremia, ruled out - growing coag-neg Staph, likely contaminant leukocytosis - likely reactive due to gout gout flare - started prednisone 60 mg/d 08/18/22, recommend po prednisone taper. resumed on allopurinol MARLEEN/CKD2 - SCr back at baseline after IV fluid hydration HTN - resumed lisinopril + metoprolol transaminasemia - likely due to rhabdomyolysis, HBV/HCV negative seen in consultation by PT who recommend acute rehab. he will be transferred to acute rehab in stable condition. discharge initially planned for 08/21, but patient hadn't had BM in several days, therefore discharge was delayed one day. KUB was obtained prior to large BM. he had enema with good effect. Time Spent with Patient Time attestation: Total time managing care of this patient today ____ minutes. Discharge coordination time: Greater than 30 minutes Quality: Safe Use of Opioids Does Pt have an Active Cancer Diagnosis on the Problem List?: No Quality: Stroke Does the patient have a stroke diagnosis?: No Physical Exam Vital Signs: Vital Signs: Last Vital Signs Temp 97.8 F 08/21/22 07:08 Pulse 61 08/21/22 07:52 Resp 20 08/21/22 07:08 BP 166/80 H 08/21/22 07:52 Pulse Ox 96 08/21/22 07:52 O2 Del Method Room Air 08/21/22 07:08 BMI result Body Mass Index 37.3 Const: General: cooperative, comfortable, no acute distress, alert and awake Nutritional Appearance: average body habitus Orientation/consciousness: patient oriented x3 Resp: Effort & Inspection: normal respiratory effort, able to speak in complete sentences, no respiratory distress and no use of accessory muscles Cardio: Rate: regular rate Heart sounds: S1 normal heart sound present and S2 normal heart sound present GI: Inspection: No distended Palpation (GI): Soft to palpation and nontender Neuro: General: patient oriented x3 and CN's II-XI intact bilaterally Extrem: Other: swelling b/l knees, no significant erythema, mild warmth DS: Data Data Completed and Pending Labs on day of discharge: Laboratory Results - last 24 hr 08/20/22 08/20/22 08/20/22 11:41 12:20 15:59 Creatinine Estim Creat Clear Calc Estimated GFR POC Glucose 123 H 151 H Vancomycin Trough COVID-19 (DOMINICK) Negative COVID-19 Clin Com See Note 08/20/22 08/20/22 08/21/22 19:44 20:22 05:55 Creatinine 1.06 Estim Creat Clear Calc 94.5 Estimated GFR > 60 POC Glucose 126 H Vancomycin Trough 16.7 COVID-19 (DOMINICK) COVID-19 Clin Com 08/21/22 07:19 Creatinine Estim Creat Clear Calc Estimated GFR POC Glucose 82 Vancomycin Trough COVID-19 (DOMINICK) COVID-19 Clin Com Preliminary micro results at discharge 08/17/22 16:27 Blood Culture - Preliminary Blood - Venous No growth after 48 hours. Discharge Plan Discharge Anticipated Discharge Date/Time: 08/22/22 13:00 Patient Disposition: Xfer Inpatient Rehab Fac Discharge Diagnosis: acute gout flare MARLEEN rhabdomyolysis Referrals: [facility] [Outside] - 1 Week (transfer for acute rehab) Nash Garcia MD [Primary Care Provider] - 1 Week Discharge Medications: New prednisone 10 mg tablet See Taper PO DAILY Qty: 21 0RF Taper: Prednisone 40 mg daily for 3 Days and 0 Hour 20 mg daily for 3 Days and 0 Hour 10 mg daily for 3 Days and 0 Hour omeprazole 20 mg capsule,delayed release(DR/EC) 20 mg PO DAILY 10 Days Qty: 10 0RF Continued lisinopril 40 mg tablet 40 mg PO DAILY Qty: 90 8RF metoprolol tartrate 100 mg tablet 100 mg PO BID Qty: 180 1RF atorvastatin 40 mg tablet 40 mg PO DAILY allopurinol 300 mg tablet 300 mg PO DAILY Jardiance 10 mg tablet 10 mg PO DAILY Trulicity 3 mg/0.5 mL pen injector 3 mg subcut [facility] Rx Instructions: Thursday No Action (DME) blood-glucose meter [Accu-Chek Guide Me Glucose Mtr] Misc See Rx Instructions .Route Rx Instructions: As directed (DME) Accu-Chek Guide test strips Strip See Rx Instructions .Route Rx Instructions: As directed one time a day Discharge Orders: Discharge Order (Routine); Ordered 08/21/22 Ordered By: Luly Venegas Activity on Discharge: As tolerated Stand Alone Forms: Patient Portal Discharge page Care Plan Goals: see below Health Concerns: acute gout flare rhabdomyolysis lactic acidosis MARLEEN on CKD2 Plan of Treatment: prednisone taper. received 60 mg 08/21. taper down to 40 mg starting 08/22 for 3 days, then 20 for 3 days and 10 mg for 3 days omeprazole for GI prophylaxis while receiving steroids Assessment: see discharge summary Discharge Date/Time: 08/22/22 13:19
[2022-08-21 11:46] LABS: Glucose, Whole Blood 109 mg/dL (60-115)
--- NOTE | 2022-08-21 12:37 | MHC.CM.PN ---
Addendum entered by Vidya Jacobo 08/21/22 16:05: AFTER NURSE TO NURSE REPORT, [facility] UNABLE TO ACCEPT PT UNTIL HAS A BM AND KUB ORDERED. PT MADE AWARE. RN AWARE, NOTIFIED. [facility] TRANSPORT CANCELLED. PER [facility], AUTH WILL BE GOOD FOR . CM WILL CONTINUE TO FOLLOW . Original Note: DP: PT HAS BEEN MEDICALLY CLEARED FOR DC TO [facility]. [facility] HAS GIVEN AUTH. PER [facility]. RN AWARE. AWARE. TRANSPORT BOOKED FOR 2:30 PM VIA [facility]
[2022-08-21 16:09] LABS: Glucose, Whole Blood 158 mg/dL (60-115)
[2022-08-21] MEDS: Insulin Lispro 100 UNIT/ML 3 ML VIAL SUBCUT ×2 (16:38→21:36)
--- NOTE | 2022-08-21 17:28 | P.PNIM_ITS ---
Subjective Subjective Date of Service: 08/21/22 Interval History: seen and examined this morning follow up for gout feeling better, less knee pain Review of Systems Review of Systems: Yes all other systems are reviewed and are negative Constitutional Constitutional: Denies chills and Denies fever(s) ENT Ears, Nose, Mouth, and Throat: Denies dizziness Cardiovascular Cardiovascular: Denies chest pain, Denies palpitations and Denies dyspnea Respiratory Respiratory: Denies cough and Denies dyspnea Gastrointestinal Gastrointestinal: Denies abdominal pain, Reports constipation, Denies nausea and Denies vomiting Neurologic Neurologic: Denies dizziness Endocrine Endocrine: Denies palpitations Physical Exam Vital Signs: Vital Signs: Last Vital Signs Temp 98.0 F 08/21/22 15:34 Pulse 73 08/21/22 15:34 Resp 20 08/21/22 15:34 BP 174/79 H 08/21/22 15:34 Pulse Ox 96 08/21/22 15:34 O2 Del Method Room Air 08/21/22 15:34 BMI result Body Mass Index 37.3 Const: General: cooperative, comfortable, no acute distress, alert and awake Nutritional Appearance: average body habitus Orientation/consciousness: patient oriented x3 Resp: Effort & Inspection: normal respiratory effort, able to speak in complete sentences, no respiratory distress and no use of accessory muscles Cardio: Rate: regular rate Heart sounds: S1 normal heart sound present and S2 normal heart sound present GI: Inspection: No distended Palpation (GI): Soft to palpation and nontender Neuro: General: patient oriented x3 and CN's II-XI intact bilaterally Extrem: Other: swelling b/l knees, no significant erythema, mild warmth Objective Data Active Medications Acetaminophen (Acetaminophen 325 Mg Tablet) 650 mg PO Q6H PRN PRN Reason: Pain, Mild (Pain Scale 1-3) Last Admin: 08/20/22 16:50 Dose: 650 mg Documented By: MELVINA Allopurinol (Allopurinol 300 Mg Tablet) 300 mg PO DAILY [facility] Last Admin: 08/21/22 09:55 Dose: 300 mg Documented By: ELIZABETH Atorvastatin Calcium (Atorvastatin Calcium 40 Mg Tablet) 40 mg PO DAILY [facility] Last Admin: 08/21/22 09:55 Dose: 40 mg Documented By: ELIZABETH Glucose (Glucose Gel 15 Gm Gel..Gram.) 15 gm PO Q15M PRN; Protocol PRN Reason: per Hypoglycemia Standing Ord. Heparin Sodium (Porcine) (Heparin Sodium,Porcine 5,000 Unit/Ml Vial) 5,000 unit SUBCUT Q12H [facility] Last Admin: 08/21/22 09:55 Dose: 5,000 unit Documented By: ELIZABETH Dextrose (D10) 250 mls @ 750 mls/hr IV Q15M PRN; Protocol PRN Reason: per Hypoglycemia Standing Ord. Insulin Human Lispro (Insulin Lispro 100 Unit/Ml 3 Ml Vial) 0.1 - 10 unit SUBCUT QIDACHS [facility]; Protocol Last Admin: 08/21/22 16:38 Dose: 2 unit Documented By: RIOSCBLAKE Lisinopril (Lisinopril 40 Mg Tablet) 40 mg PO DAILY [facility]; Protocol Last Admin: 08/21/22 09:55 Dose: 40 mg Documented By: ELIZABETH Metoprolol Tartrate (Metoprolol Tartrate 100 Mg Tablet) 100 mg PO BID [facility]; Protocol Last Admin: 08/21/22 09:55 Dose: 100 mg Documented By: ELIZABETH Ondansetron HCl (Ondansetron Hcl 4 Mg/2 Ml Vial) 4 mg IVPUSH Q8H PRN PRN Reason: Nausea and Vomiting Pharmacy Consult (Consult Rx Perform Med Rec) 1 each MISCELLANE ONCE PRN PRN Reason: Consult order Polyethylene Glycol (Polyethylene Glycol 3350 17 Gm Powd.Pack) 17 gm PO BID [facility] Last Admin: 08/21/22 09:55 Dose: 17 gm Documented By: ELIZABETH Prednisone (Prednisone 20 Mg Tablet) 60 mg PO DAILY [facility] Last Admin: 08/21/22 09:55 Dose: 60 mg Documented By: ELIZABETH Senna/Docusate Sodium (Sennosides/Docusate Sodium Tablet) 2 tab PO BID [facility] Last Admin: 08/21/22 09:55 Dose: 2 tab Documented By: ELIZABETH Labs 08/20/22 05:41 08/21/22 05:55 Labs: Laboratory Results - last 24 hr 08/20/22 08/20/22 08/21/22 19:44 20:22 05:55 Estim Creat Clear Calc 94.5 Estimated GFR > 60 POC Glucose 126 H Vancomycin Trough 16.7 08/21/22 08/21/22 08/21/22 07:19 11:42 15:56 Estim Creat Clear Calc Estimated GFR POC Glucose 82 109 158 H Vancomycin Trough Assessment and Plan (1) Constipation: Status: Acute Plan 61yo M with DM2, HTN, gout presenting after falling in the bathroom floor due to gout flare and being down for 5 days presenting with rhabdomyolysis, lactic acidosis, leukocytosis #constipation KUB pending but s/p enema with large BM after KUB obtained. # acute rhabdomyolysis - resolved, d/c IV fluids # lactic acidosis - due to dehydration, resolved with IV fluid hydration # possible bacteremia, ruled out - growing coag-neg Staph likely contaminant, d/c vancomycin # leukocytosis - likely reactive due to gout # gout flare - started prednisone 60 mg/d 08/18/22 and taper in a few days - resumed allopurinol # MARLEEN/CKD2 - SCr back at baseline after IV fluid hydration # HTN - resumed lisinopril + metoprolol # transaminasemia - likely due to rhabdomyolysis, HBV/HCV negative # HLD - resumed statin # DM2 - correction-dose lispro, DM diet # VTE ppx: UFH # dispo: PT consulted, AIR recommended, planned discharge today, but pt with no BM in several days therefore discharge delayed until tomorrrow attending - dr. feliciano In my clinical judgment, the patient requires continued inpatient hospitalization for the following reasons: placement Time Spent With Patient Time: Total time managing care of this patient today ____ minutes. Quality Stroke Does the patient have a stroke diagnosis?: No VTE Prior VTE?: No VTE Risk Level:: Medical - moderate - high VTE Device Contraindication: Treatment Not Indicated VTE Drug Contraindication: N/A - Med Ordered
[2022-08-21 19:48] LABS: Glucose, Whole Blood 197 mg/dL (60-115)
[2022-08-22] VITALS (8 sets, daily range): BP systolic 160–180; BP diastolic 70–92; PULSE 62–67; RESP 16–20; TEMP 36.2–37.2; O2SAT 93–97; BMI 37.1; BMI 37.2
--- NOTE | 2022-08-22 06:02 | PC.NURSE ---
Pt hypertensive, aysmtomatic, BPs have been running 170/92 and now 180/90. He received Lopressor before bed. MD Saavedra notiied.
[2022-08-22 06:14] LABS: Creatinine Clr Calc Pharmacy 93.5; Estimated Glomerular Filt Rate > 60
[2022-08-22 07:27] LABS: Glucose, Whole Blood 87 mg/dL (60-115)
[2022-08-22] MEDS: Sennosides/Docusate Sodium TABLET 2 TAB PO (08:09)
[2022-08-22] MEDS: allopurinoL 300 MG TABLET PO (08:09)
[2022-08-22] MEDS: polyethylene glycoL 3350 17 GM POWD.PACK PO (08:09)
[2022-08-22] MEDS: Metoprolol Tartrate 100 MG TABLET PO (08:09)
[2022-08-22] MEDS: Atorvastatin Calcium 40 MG TABLET PO (08:09)
[2022-08-22] MEDS: lisinopriL 40 MG TABLET PO (08:09)
[2022-08-22] MEDS: predniSONE 20 MG TABLET 60 MG PO (08:09)
--- NOTE | 2022-08-22 09:22 | MHC.CM.PN ---
Per PA, Patient is medically cleared for dc to [facility] today at 1PM, via [facility].
[2022-08-22 10:59] LABS: Glucose, Whole Blood 115 mg/dL (60-115)
[2022-08-22] MEDS: Heparin Sodium,Porcine 5,000 UNIT/ML VIAL 5000 UNIT SUBCUT (11:20)
== END 2022-08-22 13:19 | DRG 351 ==
LOC: HO.ED 08-18 01:34 → HO.EDOVER 08-18 02:02 → HO.IMC 08-18 02:25
PROVIDERS: Family Medicine; Internal Medicine; Admitting Provider Internal Medicine; Emergency Provider Emergency Medicine; PCP Internal Medicine; Visit Provider Physician Assistant Medical
DX: M62.82 Rhabdomyolysis (principal); N17.9 Acute kidney failure, unspecified; E87.20 Acidosis, unspecified; E11.22 Type 2 diabetes mellitus with diabetic chronic kidney disease; E11.42 Type 2 diabetes mellitus with diabetic polyneuropathy; D72.829 Elevated white blood cell count, unspecified; E86.0 Dehydration; K59.00 Constipation, unspecified; M10.9 Gout, unspecified; I12.9 Hypertensive chronic kidney disease with stage 1 through stage 4 chronic kidney disease, or unspecified chronic kidney disease; N18.2 Chronic kidney disease, stage 2 (mild); Z20.822 Contact with and (suspected) exposure to COVID-19; Z87.891 Personal history of nicotine dependence; Z79.899 Other long term (current) drug therapy
CPT/HCPCS: 36415; 71045; 73600; 74018; 80048; 80053; 80076; 80202; 80307; 81001; 82550; 82565; 82947; 83605; 83690; 83735; 83880; 84145; 84443; 84484; 84550; 85025; 85027; 85610; 86140; 86704; 86706; 86803; 87040; 87147; 87205; 87340; 87635; 93005; 97116; 97162; 97166; 97530; 97535; 99285; J1643; J3370

== ENCOUNTER 2022-10-13 08:00 | Outpatient (REF) | payer OTHER, SELFPAY ==
[2022-10-13 08:17] LABS: MANUAL DIFF FLAG NO
[2022-10-13 08:56] LABS: Basophils Absolute Auto 0.1 X10*3/uL (0.0-0.2); Eosinophils Absolute Auto 0.3 X10*3/uL (0.0-0.4); Hematocrit 39.3 % (42.0-52.0); Hemoglobin 12.6 g/dl (14.0-18.0); Imm Gran Abs Auto 0.06 X10*3/uL (0.00-0.03); Imm Gran Pct Auto 0.7 % (0.0-0.4); Lymphocytes Absolute Auto 1.9 X10*3/uL (1.2-4.9); Lymphocytes Percent Auto 21.8 % (20-40); Mean Corpuscular HGB Conc 32.1 g/dl (31.0-36.0); Mean Corpuscular Hemoglobin 27.8 pg (27.0-33.0); Mean Corpuscular Volume 86.6 fL (80.0-98.0); Mean Platelet Volume 9.9 fL (9.4-12.4); Monocytes Absolute Auto 0.9 X10*3/uL (0.1-1.2); Monocytes Percent Auto 9.9 % (2-11); Neutrophils Absolute Auto 5.5 x10*3/uL (2.0-8.3); Neutrophils Percent Auto 63.6 % (45-73); Platelet Count 188 X10*3/uL (160-400); Red Blood Count 4.54 X10*6/uL (4.60-5.80); Red Cell Distribution Width 15.9 % (11.0-16.0); White Blood Count 8.7 X10*3/uL (4.8-10.8)
[2022-10-13 09:31] LABS: Anion Gap 16 (12-20); Blood Urea Nitrogen 13 mg/dL (9-16); Calcium 9.6 mg/dL (8.4-10.2); Carbon Dioxide 24 mmol/L (22-29); Chloride 106 mmol/L (96-108); Estimated Glomerular Filt Rate > 60; Glucose Random 88 mg/dL (60-115); Potassium 4.1 mmol/L (3.3-5.1); Sodium 142 mmol/L (135-145); Uric Acid 4.6 mg/dL (3.4-7.0)
== END 2022-10-13 08:01 | disposition home or self-care (01) ==
LOC: HO.LAB 08:00
PROVIDERS: PCP Internal Medicine; Visit Provider Internal Medicine
DX: M10.9 Gout, unspecified (principal); D64.9 Anemia, unspecified
CPT/HCPCS: 36415; 80048; 82550; 84550; 85025

== ENCOUNTER 2022-10-17 09:28 | Outpatient (AMB) | payer OTHER, SELFPAY ==
--- NOTE | 2022-10-17 09:37 | MHC.PC.OV ---
Vital Signs 10/17/22 09:38 Height 5 ft 11 in Weight 250 lb 6 oz BMI 34.9 BP 120/72 Blood Pressure Location Lt brachial Position Sitting Pulse 80 Pulse Source Pulse Oximeter Pulse Oximetry (%) 96 Oxygen Delivery Method Room Air Intake Visit Reasons: 4 month f/u Intake Note: Patient is here to follow up on DM, HTN, Hyerlipidemia. Requesting lab results Radio Frequency Engineer Required: No Electrical Equipment Tester: Not Required per policy Accompanied by: Self / Same As Patient Allergies No Known Allergies Allergy (Verified 10/17/22 09:37) Medication List - Last Reconciled 10/17/22 by Nash Garcia MD allopurinol 300 mg PO DAILY atorvastatin 40 mg PO DAILY blood sugar diagnostic (Accu-Chek Guide test strips) As directed one time a day blood-glucose meter (Accu-Chek Guide Me Glucose Meter) As directed clotrimazole 1% 1 appl topical BID dulaglutide (Trulicity) 3 mg subcut MCNAMARA empagliflozin (Jardiance) 10 mg PO DAILY indomethacin 25 mg PO TID lansoprazole 30 mg PO DAILY lisinopril 40 mg PO DAILY metoprolol tartrate 100 mg PO BID omeprazole 20 mg PO DAILY 10 days Tobacco use date assessed: 10/17/22 Fall risk assessment: 1 Fall in past year Last assessed Fall Risk: 10/17/22 Dental Screening Dental Screen Date: 10/17/22 Did you have a dental visit in the last 12 months?: Yes Did you have a dental problem in the last 6 months where you did not have access to dental care?: No Was dental information given to patient?: Patient has dentist HPI 4 month f/u HPI Details hyperlipidemia HTN and DM; doing well; A1C 5,5 PFSH Medical History (Updated 09/16/22 @ 00:02 by Abdirashid Toribio) Acute kidney injury CKD (chronic kidney disease) stage 2, GFR 60-89 ml/min Diabetes mellitus Diabetes mellitus with coincident hypertension Diabetes type 2, uncontrolled HTN (hypertension) Hyperlipidemia Kidney disease Leukocytosis Obesity due to excess calories 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 Social History Household Members: None Housing: House Alcohol intake: never Patient Tobacco Use Status: Former Tobacco user Tobacco use type: Cigarette e-Cigarette/Vaping Use: Never Used Second Hand Smoke Exposure: No Substance Use Type: Former Substance User and Marijuana service: No Current occupational status: employed Cognitive needs: No Hearing needs: No Vision needs: No Questionnaire Thrive Questionnaire Date Thrive assessed: 05/17/21 SMOOTH-7 AMB Questionnaire SMOOTH-7 Date SMOOTH - 7 assessed: 06/06/22 Source: Developed by Drs. John Yan, Cherrie Peralta, Christopher Burt and colleagues, with an educational ney from [email or web address]. Review of Systems Const Denies chills, Denies headache(s) and Denies weight loss ENT Denies headache(s) Card Denies chest pain, Denies syncope, Denies irregular heart rhythm and Denies dyspnea Resp Denies chest congestion, Denies cough and Denies dyspnea GI Denies abdominal pain, Denies change in stool character, Denies nausea and Denies vomiting Musc Denies deformity and Denies joint swelling Neuro Denies syncope and Denies headache(s) Physical exam (Primary Care) Vital Signs: Last Vital Signs Pulse 80 10/17/22 09:38 BP 120/72 10/17/22 09:38 Pulse Ox 96 10/17/22 09:38 Oxygen Delivery Method Room Air 10/17/22 09:38 BMI result Body Mass Index 34.9 Tobacco/Smoking Status: Tobacco use Status Tobacco use date assessed 10/17/22 10/17/22 09:46 Patient Tobacco Use Status Former Tobacco user 10/17/22 09:46 Tobacco use type Cigarette 10/17/22 09:46 e-Cigarette/Vaping Use Never Used 10/17/22 09:46 Thrive Assessment: Date of Thrive Assessment Date Thrive assessed 05/17/21 10/17/22 09:46 Const General: cooperative, healthy appearing and no acute distress Orientation/consciousness: oriented to person, oriented to place and oriented to time HENMT Head: Yes normal to inspection, Yes normocephalic and Yes atraumatic Mouth: Normal oral and palatal mucosa present and tongue normal Throat: Yes posterior oropharynx normal and Yes uvula midline Eyes General: appearance normal, both eyes and all related structures Neck Neck: Yes normal visual inspection, Yes full ROM and Yes no lymphadenopathy Thyroid: Thyroid normal Carotids: normal carotid upstroke Chest Chest palpation & inspection: normal inspection of the chest Resp Effort & Inspection: normal respiratory effort and able to speak in complete sentences Auscultation: clear to auscultation bilaterally Cardio Jugular venous distension: no JVD Palpation: normal PMI Rate: regular rate Rhythm: regular rhythm Heart sounds: S1 normal heart sound present and S2 normal heart sound present GI Inspection: Yes normal to inspection Palpation (GI): Soft to palpation and No hepatosplenomegaly present Auscultation: normal bowel sounds General: Yes no CVA tenderness Back/Spine/Pelvis Back: no CVA tenderness Skin General skin exam: no rashes or lesions noted Neuro General: oriented to person, oriented to place and oriented to time Extrem General: Yes normal to inspection and Yes full ROM Results AMB Hemoglobin A1c AMB Hemoglobin A1c 5.5 % Last Edit by DEE Gibson on 10/17/22 09:52 Results Reviewed Results Reviewed: Laboratory Last Values Hgb A1c (Clinic) 5.5 % (4.0-6.0) 10/17/22 09:36 Assessment and Plan Assessment & Plan (1) Diabetes mellitus with coincident hypertension: Code(s): E11.9 - Type 2 diabetes mellitus without complications; I10 - Essential (primary) hypertension Plan: stable; same rx (2) HTN (hypertension): Code(s): I10 - Essential (primary) hypertension Qualifiers: Hypertension type: essential hypertension Qualified Code(s): I10 - Essential (primary) hypertension Plan: stable; same rx (3) Hyperlipidemia: Code(s): E78.5 - Hyperlipidemia, unspecified Qualifiers: Hyperlipidemia type: pure hypercholesterolemia Qualified Code(s): E78.00 - Pure hypercholesterolemia, unspecified Plan: stable ;same rx Orders: Orders AMB Hemoglobin A1c Today E11.65 - Type 2 diabetes mellitus with hyperglycemia, E11.69 - Type 2 diabetes mellitus with other specified complication, E66.9 - Obesity, unspecified Comprehensive [place]. Panel Fast Today N28.9 - Disorder of kidney and ureter, unspecified Hemoglobin A1c Today R73.9 - Hyperglycemia, unspecified Lipid Panel Today E78.5 - Hyperlipidemia, unspecified Medications: Discontinued dulaglutide 3 mg (0.5 mL) subcut QWEEK 84 days 6 mL 0RF Coding Level of Care Code Est Pt Level 4 (19323) Diagnoses Diabetes mellitus with coincident hypertension E11.9; I10 HTN (hypertension) I10 Hypertension type: essential hypertension Hyperlipidemia E78.00 Hyperlipidemia type: pure hypercholesterolemia
[2022-10-17 09:38] VITALS: BP 120/72; PULSE 80; O2SAT 96; BMI 34.9
== END 2022-10-17 10:04 | disposition home or self-care (01) ==
PROVIDERS: PCP Internal Medicine; Visit Provider Internal Medicine
DX: E11.65 Type 2 diabetes mellitus with hyperglycemia (principal); E66.9 Obesity, unspecified; Z68.34 Body mass index [BMI] 34.0-34.9, adult; I10 Essential (primary) hypertension; E11.69 Type 2 diabetes mellitus with other specified complication; E78.00 Pure hypercholesterolemia, unspecified
CPT/HCPCS: 83036; 99214

== ENCOUNTER 2022-10-24 09:15 | Outpatient (REF) | payer OTHER, SELFPAY ==
[2022-10-24 11:08] LABS: Anion Gap 11 (12-20); Blood Urea Nitrogen 28 mg/dL (9-16); Calcium 9.6 mg/dL (8.4-10.2); Carbon Dioxide 25 mmol/L (22-29); Chloride 110 mmol/L (96-108); Estimated Glomerular Filt Rate 51; Potassium 4.5 mmol/L (3.3-5.1); Sodium 141 mmol/L (135-145); Uric Acid 5.6 mg/dL (3.4-7.0)
== END 2022-10-24 09:16 | disposition home or self-care (01) ==
LOC: HO.LAB 09:15
PROVIDERS: PCP Internal Medicine; Visit Provider Internal Medicine Nephrology
DX: I12.9 Hypertensive chronic kidney disease with stage 1 through stage 4 chronic kidney disease, or unspecified chronic kidney disease (principal); N18.31 Chronic kidney disease, stage 3a
CPT/HCPCS: 36415; 80051; 82310; 82565; 84520; 84550

== ENCOUNTER 2023-02-18 12:16 | Outpatient (REF) | payer OTHER, SELFPAY ==
[2023-02-18 13:39] LABS: Estimated Average Glucose 108 mg/dL; Hemoglobin A1c % 5.4 % (<6.0)
[2023-02-18 13:49] LABS: Alanine Aminotransferase 17 U/L (0-40); Alkaline Phosphatase 60 U/L (39-117); Anion Gap 11 (12-20); Aspartate Amino Transferase 17 U/L (5-37); Bilirubin Total 0.6 mg/dL (0.0-1.0); Blood Urea Nitrogen 25 mg/dL (9-16); Calcium 9.7 mg/dL (8.4-10.2); Carbon Dioxide 27 mmol/L (22-29); Chloride 106 mmol/L (96-108); Cholesterol 147 mg/dL (<200); Estimated Glomerular Filt Rate > 60; Glucose Fasting 87 mg/dL (60-99); HDL Cholesterol 47 mg/dL (>40); LDL Cholesterol Calculated 87 mg/dL (<100); Potassium 4.1 mmol/L (3.3-5.1); Sodium 140 mmol/L (135-145); Total Protein 7.4 g/dL (6.5-8.0); Triglycerides 67 mg/dL (<150)
== END 2023-02-18 12:17 | disposition home or self-care (01) ==
LOC: HO.LAB 12:16
PROVIDERS: PCP Internal Medicine; Visit Provider Internal Medicine
DX: N28.9 Disorder of kidney and ureter, unspecified (principal); E78.5 Hyperlipidemia, unspecified; R73.9 Hyperglycemia, unspecified
CPT/HCPCS: 36415; 80053; 80061; 83036

== ENCOUNTER 2023-02-20 08:41 | Outpatient (REF) | payer OTHER, SELFPAY ==
[2023-02-20 10:51] LABS: Anion Gap 12 (12-20); Blood Urea Nitrogen 24 mg/dL (9-16); Carbon Dioxide 26 mmol/L (22-29); Chloride 109 mmol/L (96-108); Estimated Glomerular Filt Rate 57; Potassium 4.1 mmol/L (3.3-5.1); Sodium 143 mmol/L (135-145)
[2023-02-20 11:55] LABS: Creatinine Urine 91.12 mg/dL; Total Protein Urine Random < 7 mg/dL (<12)
== END 2023-02-20 08:42 | disposition home or self-care (01) ==
LOC: HO.LAB 08:41
PROVIDERS: PCP Internal Medicine; Visit Provider Internal Medicine Nephrology
DX: E11.22 Type 2 diabetes mellitus with diabetic chronic kidney disease (principal); N18.9 Chronic kidney disease, unspecified
CPT/HCPCS: 36415; 80051; 82565; 82570; 84156; 84520

== ENCOUNTER 2023-02-23 09:10 | Outpatient (AMB) | payer OTHER, SELFPAY ==
[2023-02-23 09:13] VITALS: BP 130/72; PULSE 70; O2SAT 97; BMI 36.7
--- NOTE | 2023-02-23 09:13 | A.OFFPC_ITS ---
Vital Signs 02/23/23 09:13 Height 5 ft 11 in Weight 263 lb BMI 36.7 BP 130/72 Blood Pressure Location Lt brachial Position Sitting Pulse 70 Pulse Source Pulse Oximeter Pulse Oximetry (%) 97 Oxygen Delivery Method Room Air Intake Visit Reasons: 4 mth f/u Dough Brake Machine Operator Required: No Bulb Filler: Not Required per policy Accompanied by: Self / Same As Patient Allergies No Known Allergies Allergy (Verified 02/23/23 09:14) Medication List - Last Reconciled 02/23/23 by Nash Garcia MD allopurinol 300 mg PO DAILY atorvastatin 40 mg PO DAILY blood sugar diagnostic (Accu-Chek Guide test strips) As directed one time a day blood-glucose meter (Accu-Chek Guide Me Glucose Meter) As directed dulaglutide (Trulicity) 3 mg (0.5 mL) subcut MCNAMARA empagliflozin (Jardiance) 10 mg PO DAILY indomethacin 25 mg PO TID lansoprazole 30 mg PO DAILY lisinopril 40 mg PO DAILY metoprolol tartrate 100 mg PO BID Tobacco use date assessed: 10/17/22 Fall risk assessment: No Falls in past year Last assessed Fall Risk: 02/23/23 Dental Screening Dental Screen Date: 02/23/23 Did you have a dental visit in the last 12 months?: Yes Did you have a dental problem in the last 6 months where you did not have access to dental care?: No Was dental information given to patient?: Patient has dentist HPI 4 mth f/u HPI Details DM HTN and hyperlipidemia; all in good control PFSH Medical History Leukocytosis CKD (chronic kidney disease) stage 2, GFR 60-89 ml/min Acute kidney injury Kidney disease Type 2 diabetes mellitus with obesity Type 2 diabetes mellitus with chronic kidney disease Diabetes mellitus with coincident hypertension Type 2 diabetes mellitus with diabetic polyneuropathy HTN (hypertension) Obesity due to excess calories Hyperlipidemia Diabetes type 2, uncontrolled Diabetes mellitus Surgical History History of colonoscopy Hx of tooth extraction Family History Mother Diabetes Father No problems noted. Social History Household Members: None Housing: House Alcohol intake: never Patient Tobacco Use Status: Former Tobacco user Tobacco use type: Cigarette e-Cigarette/Vaping Use: Never Used Second Hand Smoke Exposure: No Substance Use Type: Former Substance User and Marijuana service: No Current occupational status: employed Cognitive needs: No Hearing needs: No Vision needs: No Questionnaire Thrive Questionnaire Date Thrive assessed: 02/23/23 I am a: Patient What is your living situation today?: I have a steady place to live Within the past 12 months, did the food you bought not last and you didn't have the money to get more?: Never true Within the past 12 months, did you worry whether your food would run out before you got money to buy more?: Never true Do you have trouble paying for medicines?: No Do you have trouble getting transportation to medical appointments?: No Do you have trouble paying your heating and electricity bill?: No Do you have trouble taking care of your child, family member or friend?: No Do you have trouble with day-to-day activities such as bathing, preparing meals, shopping, managing finances, etc.?: No Are you currently unemployed and looking for a job?: No Are you interested in more education?: No Please select the resources that you would like help with: None SMOOTH-7 AMB Questionnaire SMOOTH-7 Date SMOOTH - 7 assessed: 06/06/22 Source: Developed by Drs. John Yan, Cherrie Peralta, Christopher Burt and colleagues, with an educational ney from [email or web address]. Review of Systems Const Denies chills, Denies headache(s) and Denies weight loss ENT Denies headache(s) Card Denies chest pain, Denies syncope, Denies irregular heart rhythm and Denies dyspnea Resp Denies chest congestion, Denies cough and Denies dyspnea GI Denies abdominal pain, Denies change in stool character, Denies nausea and Denies vomiting Musc Denies deformity and Denies joint swelling Neuro Denies syncope and Denies headache(s) Physical exam (Primary Care) Vital Signs: Last Vital Signs Pulse 70 02/23/23 09:13 BP 130/72 02/23/23 09:13 Pulse Ox 97 02/23/23 09:13 Oxygen Delivery Method Room Air 02/23/23 09:13 BMI result Body Mass Index 36.7 Tobacco/Smoking Status: Tobacco use Status Tobacco use date assessed 10/17/22 02/23/23 09:15 Patient Tobacco Use Status Former Tobacco user 02/23/23 09:15 Tobacco use type Cigarette 02/23/23 09:15 e-Cigarette/Vaping Use Never Used 02/23/23 09:15 Thrive Assessment: Date of Thrive Assessment Date Thrive assessed 02/23/23 02/23/23 09:15 Const General: cooperative, comfortable, no acute distress and alert Neck Neck: Yes no lymphadenopathy Thyroid: Thyroid normal Resp Effort & Inspection: normal respiratory effort Auscultation: clear to auscultation bilaterally Percussion: percussion normal Cardio Jugular venous distension: no JVD Palpation: normal PMI Rate: regular rate Rhythm: regular rhythm Heart sounds: S1 normal heart sound present and S2 normal heart sound present GI Inspection: Yes normal to inspection Palpation (GI): No hepatosplenomegaly present Skin General skin exam: no rashes or lesions noted Extrem General: Yes no clubbing, cyanosis or edema Assessment and Plan Assessment & Plan (1) Diabetes mellitus with coincident hypertension: Code(s): E11.9 - Type 2 diabetes mellitus without complications; I10 - Essential (primary) hypertension Plan: stable; same rx (2) HTN (hypertension): Code(s): I10 - Essential (primary) hypertension Qualifiers: Hypertension type: essential hypertension Qualified Code(s): I10 - Essential (primary) hypertension Plan: stable; same rx (3) Hyperlipidemia: Code(s): E78.5 - Hyperlipidemia, unspecified Qualifiers: Hyperlipidemia type: pure hypercholesterolemia Qualified Code(s): E78.00 - Pure hypercholesterolemia, unspecified Plan: stable; same rx Orders: Orders Lipid Panel Today E78.5 - Hyperlipidemia, unspecified Glucose Fasting Today R73.9 - Hyperglycemia, unspecified Hemoglobin A1c Today R73.9 - Hyperglycemia, unspecified Coding Level of Care Code Est Pt Level 4 (98249) Diagnoses Diabetes mellitus with coincident hypertension E11.9; I10 Essential hypertension I10 Hypertension type: essential hypertension Pure hypercholesterolemia E78.00 Hyperlipidemia type: pure hypercholesterolemia
== END 2023-02-23 09:36 | disposition home or self-care (01) ==
PROVIDERS: PCP Internal Medicine; Visit Provider Internal Medicine
DX: E11.9 Type 2 diabetes mellitus without complications (principal); I10 Essential (primary) hypertension; E78.00 Pure hypercholesterolemia, unspecified
CPT/HCPCS: 99214

== ENCOUNTER 2023-02-27 13:12 | Outpatient (AMB) | payer OTHER, SELFPAY ==
--- NOTE | 2023-02-27 13:36 | HO.NEPHOV ---
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 He has diabetic hypertensive renal disease. His blood sugar control is very good now. His blood pressure has been at goal. He has been tolerating Jardiance as well as lisinopril. He has no hypotension or hypoglycemias. He has no pedal edema. His urine output is good. He had no recent exacerbation of gout. I asked him to avoid indomethacin. He denies any chest pain, shortness of breath, proximal nocturnal dyspnea, orthopnea or urinary symptoms. He feels well. [facility] Medical History Leukocytosis CKD (chronic kidney disease) stage 2, GFR 60-89 ml/min Acute kidney injury Kidney disease Type 2 diabetes mellitus with obesity Type 2 diabetes mellitus with chronic kidney disease Diabetes mellitus with coincident hypertension Type 2 diabetes mellitus with diabetic polyneuropathy HTN (hypertension) Obesity due to excess calories Hyperlipidemia Diabetes type 2, uncontrolled Diabetes mellitus Surgical History History of colonoscopy Hx of tooth extraction Family History Mother Diabetes Father No problems noted. Social History Household Members: None Housing: House Alcohol intake: never Patient Tobacco Use Status: Former Tobacco user Tobacco use type: Cigarette e-Cigarette/Vaping Use: Never Used Second Hand Smoke Exposure: No Substance Use Type: Former Substance User and Marijuana service: No Current occupational status: employed Cognitive needs: No Hearing needs: No Vision needs: No Vital Signs 02/27/23 13:39 Height 5 ft 11 in Weight 267 lb 2 oz BMI 37.3 BP 120/70 Blood Pressure Location Lt brachial Position Sitting Pulse 97 Pulse Source Pulse Oximeter Pulse Oximetry (%) 97 Oxygen Delivery Method Room Air Physical Exam Vital Signs: Last Vital Signs Pulse 97 02/27/23 13:39 BP 120/70 02/27/23 13:39 Pulse Ox 97 02/27/23 13:39 Oxygen Delivery Method Room Air 02/27/23 13:39 BMI result Body Mass Index 37.3 Const General: comfortable and no acute distress Orientation/consciousness: patient oriented x3 HEENT Head: Yes normocephalic Mouth: Normal oral and palatal mucosa present Eyes EOM: EOMs intact bilaterally Neck Neck: Yes supple Resp Auscultation: clear to auscultation bilaterally Cardio Jugular venous distension: no JVD Rate: regular rate GI Palpation (GI): Soft to palpation Auscultation: normal bowel sounds General: Yes no CVA tenderness Back/Spine/Pelvis Back: no CVA tenderness Skin General skin exam: no rashes or lesions noted Neuro General: patient oriented x3 and moves all extremities Extrem General: Yes no pedal edema Assessment & Plan Assessment & Plan (1) Type 2 diabetes mellitus with chronic kidney disease: Code(s): E11.22 - Type 2 diabetes mellitus with diabetic chronic kidney disease Qualifiers: Diabetes mellitus intermodal customer service insulin use: without intermodal customer service use Chronic kidney disease stage: stage 3 (moderate) Chronic kidney disease stage 3 subtype: stage 3a (GFR 45-59) Qualified Code(s): E11.22 - Type 2 diabetes mellitus with diabetic chronic kidney disease; N18.31 - Chronic kidney disease, stage 3a (2) HTN (hypertension): Code(s): I10 - Essential (primary) hypertension Qualifiers: Hypertension type: essential hypertension Qualified Code(s): I10 - Essential (primary) hypertension Plan Bobby has a diabetic hypertensive renal disease. His hemoglobin A1c is under 6. His urine output is good. Has no prostatic symptoms. He has no edema, hypoglycemia or hypotension. He is tolerating Jardiance as well as KEI-inhibitor. He was counseled to avoid nonsteroidal anti-inflammatory medications even during gout exacerbations. He should maintain good hydration. He can continue current dose of allopurinol. I did not make any medication changes today. Follow-up blood work and urine studies ordered. All questions answered. Follow-up given. Orders: Orders Blood Urea Nitrogen 02/27/23. - Type 2 diabetes mellitus with diabetic chronic kidney disease, I10 - Essential (primary) hypertension Calcium 02/27/23. - Type 2 diabetes mellitus with diabetic chronic kidney disease, I10 - Essential (primary) hypertension Electrolytes 02/27/23. - Type 2 diabetes mellitus with diabetic chronic kidney disease, I10 - Essential (primary) hypertension Creatinine 02/27/23. - Type 2 diabetes mellitus with diabetic chronic kidney disease, I10 - Essential (primary) hypertension Protein Creatinine Ratio, Ur 02/27/23 E11.22 - Type 2 diabetes mellitus with diabetic chronic kidney disease, I10 - Essential (primary) hypertension Coding Level of Care Code Est Pt Level 3 (17702) Diagnoses Type 2 diabetes mellitus with stage 3a chronic kidney disease, without long-term current use of insulin E11.22; N18.31 Diabetes mellitus halfway insulin use: without halfway use Chronic kidney disease stage: stage 3 (moderate) Chronic kidney disease stage 3 subtype: stage 3a (GFR 45-59) Essential hypertension I10 Hypertension type: essential hypertension Results Reviewed Nephrology Results: Hgb 12.6 g/dl (14.0-18.0) L 10/13/22 WBC 8.7 X10*3/uL (4.8-10.8) 10/13/22 Plt Count 188 X10*3/uL (160-400) 10/13/22 Sodium 143 mmol/L (135-145) 02/20/23 Potassium 4.1 mmol/L (3.3-5.1) 02/20/23 Chloride 109 mmol/L (96-108) H 02/20/23 Carbon Dioxide 26 mmol/L (22-29) 02/20/23 BUN 24 mg/dL (9-16) H 02/20/23 Creatinine 1.28 mg/dL (0.5-1.4) 02/20/23 Calcium 9.7 mg/dL (8.4-10.2) 02/18/23 Urine Protein 100 (2+) mg/dL (Neg-Trace) H 08/17/22 Urine Creatinine 91.12 mg/dL 02/20/23 Protein/Creatinin Ratio TNP 02/20/23
[2023-02-27 13:39] VITALS: BP 120/70; PULSE 97; O2SAT 97; BMI 37.3
== END 2023-02-27 13:51 | disposition home or self-care (01) ==
PROVIDERS: PCP Internal Medicine; Visit Provider Internal Medicine Nephrology
DX: E11.22 Type 2 diabetes mellitus with diabetic chronic kidney disease (principal); N18.31 Chronic kidney disease, stage 3a; I10 Essential (primary) hypertension
CPT/HCPCS: 99213

== ENCOUNTER → 2023-02-27 13:12 | Outpatient (BNVA) | payer OTHER, SELFPAY | PROVIDERS: PCP Internal Medicine; Visit Provider Internal Medicine Nephrology ==

== ENCOUNTER 2023-08-25 08:19 | Outpatient (REF) | payer OTHER, SELFPAY ==
[2023-08-25 08:33] LABS: MANUAL DIFF FLAG NO
[2023-08-25 09:30] LABS: Basophils Absolute Auto 0.1 X10*3/uL (0.0-0.2); Basophils Percent Auto 1.8 % (0-2); Eosinophils Absolute Auto 0.6 X10*3/uL (0.0-0.4); Eosinophils Percent Auto 7.6 % (0-4); Hematocrit 45.6 % (42.0-52.0); Hemoglobin 15.2 g/dl (14.0-18.0); Imm Gran Abs Auto 0.08 X10*3/uL (0.00-0.03); Lymphocytes Absolute Auto 2.1 X10*3/uL (1.2-4.9); Lymphocytes Percent Auto 25.9 % (20-40); Mean Corpuscular HGB Conc 33.3 g/dl (31.0-36.0); Mean Corpuscular Volume 86.9 fL (80.0-98.0); Monocytes Percent Auto 12.9 % (2-11); Neutrophils Absolute Auto 4.1 x10*3/uL (2.0-8.3); Neutrophils Percent Auto 50.8 % (45-73); Platelet Count 207 X10*3/uL (160-400); Red Blood Count 5.25 X10*6/uL (4.60-5.80); Red Cell Distribution Width 12.9 % (11.0-16.0)
[2023-08-25 09:34] LABS: Estimated Average Glucose 108 mg/dL; Hemoglobin A1c % 5.4 % (<6.0)
[2023-08-25 10:02] LABS: Anion Gap 13 (12-20); Blood Urea Nitrogen 20 mg/dL (9-16); Calcium 9.5 mg/dL (8.4-10.2); Carbon Dioxide 25 mmol/L (22-29); Chloride 107 mmol/L (96-108); Cholesterol 141 mg/dL (<200); Estimated Glomerular Filt Rate 56; Glucose Fasting 97 mg/dL (60-99); HDL Cholesterol 49 mg/dL (>40); LDL Cholesterol Calculated 78 mg/dL (<100); Potassium 4.2 mmol/L (3.3-5.1); Sodium 141 mmol/L (135-145); Triglycerides 73 mg/dL (<150)
[2023-08-25 12:30] LABS: Total Protein Urine Random < 7 mg/dL (<12)
== END 2023-08-25 08:20 | disposition home or self-care (01) ==
LOC: HO.LAB 08:19
PROVIDERS: Absent Provider Internal Medicine Nephrology; PCP Internal Medicine; Visit Provider Internal Medicine
DX: E78.5 Hyperlipidemia, unspecified (principal); R73.9 Hyperglycemia, unspecified; D64.9 Anemia, unspecified; E11.22 Type 2 diabetes mellitus with diabetic chronic kidney disease; I12.9 Hypertensive chronic kidney disease with stage 1 through stage 4 chronic kidney disease, or unspecified chronic kidney disease; N18.9 Chronic kidney disease, unspecified
CPT/HCPCS: 36415; 80051; 80061; 82310; 82565; 82570; 82947; 83036; 84156; 84520; 85025

== ENCOUNTER 2023-08-28 09:15 | Outpatient (AMB) | payer OTHER, SELFPAY ==
[2023-08-28 09:16] VITALS: BP 134/80; PULSE 67; O2SAT 98; BMI 38.2
--- NOTE | 2023-08-28 09:16 | MHC.PC.OV ---
Vital Signs 08/28/23 09:16 Height 5 ft 11 in Weight 274 lb BMI 38.2 BP 134/80 Blood Pressure Location Lt brachial Position Sitting Pulse 67 Pulse Source Pulse Oximeter Pulse Oximetry (%) 98 Oxygen Delivery Method Room Air Intake Visit Reasons: 4 Month F/U Accordion Repairer Required: No Wooden Tank Erector: Not Required per policy Accompanied by: Self / Same As Patient Allergies No Known Allergies Allergy (Verified 08/28/23 09:17) Medication List - Last Reconciled 08/28/23 by Nash Garcia MD allopurinol 300 mg PO DAILY atorvastatin 40 mg PO DAILY blood sugar diagnostic (Accu-Chek Guide test strips) As directed one time a day blood-glucose meter (Accu-Chek Guide Me Glucose Meter) As directed dulaglutide (Trulicity) 3 mg (0.5 mL) subcut MCNAMARA empagliflozin (Jardiance) 10 mg PO DAILY indomethacin 25 mg PO TID PRN lansoprazole 30 mg PO DAILY lisinopril 40 mg PO DAILY metoprolol tartrate 100 mg PO BID Tobacco use date assessed: 08/28/23 Fall risk assessment: No Falls in past year Last assessed Fall Risk: 08/28/23 Dental Screening Dental Screen Date: 08/28/23 Did you have a dental visit in the last 12 months?: Yes Did you have a dental problem in the last 6 months where you did not have access to dental care?: No Was dental information given to patient?: Patient has dentist HPI 4 Month F/U HPI Details hyperlipidemia on rx; compliant and doing well [facility] Medical History Leukocytosis CKD (chronic kidney disease) stage 2, GFR 60-89 ml/min Acute kidney injury Kidney disease Type 2 diabetes mellitus with obesity Type 2 diabetes mellitus with chronic kidney disease Diabetes mellitus with coincident hypertension Type 2 diabetes mellitus with diabetic polyneuropathy HTN (hypertension) Obesity due to excess calories Hyperlipidemia Diabetes type 2, uncontrolled Diabetes mellitus Surgical History History of colonoscopy Hx of tooth extraction Family History Mother Diabetes Father No problems noted. Social History Household Members: None Housing: House Alcohol intake: never Patient Tobacco Use Status: Former Tobacco user Tobacco use type: Cigarette e-Cigarette/Vaping Use: Never Used Second Hand Smoke Exposure: No Substance Use Type: Former Substance User and Marijuana service: No Current occupational status: employed Cognitive needs: No Hearing needs: No Vision needs: No Questionnaire PHQ-9 Over the last 2 weeks, how often have you been bothered by any of the following problems? 1. Little interest or pleasure in doing things: not at all 2. Feeling down, depressed, or hopeless: not at all 3. Trouble falling or staying asleep, or sleeping too much: not at all 4. Feeling tired or having little energy: not at all 5. Poor appetite or overeating: not at all 6. Feeling bad about yourself - or that you are a failure or have let yourself or your family down: not at all 7. Trouble concentrating on things, such as reading the newspaper or watching television: not at all 8. Moving or speaking so slowly that other people could have noticed. Or the opposite - being so fidgety or restless that you have been moving around a lot more than usual: not at all 9. Thoughts that you would be better off or of hurting yourself in some way: not at all Total score: 0 Depression Screening Interpretation: Negative Depression Screening Done: Yes Source: Developed by Drs. John Yan, Cherrie Peralta, Christopher Burt and colleagues, with an educational ney from [employer]. Thrive Questionnaire Date Thrive assessed: 08/28/23 I am a: Patient What is your living situation today?: I have a steady place to live Within the past 12 months, did the food you bought not last and you didn't have the money to get more?: Never true Within the past 12 months, did you worry whether your food would run out before you got money to buy more?: Never true Do you have trouble paying for medicines?: No Do you have trouble getting transportation to medical appointments?: No Do you have trouble paying your heating and electricity bill?: No Do you have trouble taking care of your child, family member or friend?: No Do you have trouble with day-to-day activities such as bathing, preparing meals, shopping, managing finances, etc.?: No Are you currently unemployed and looking for a job?: No Are you interested in more education?: No Please select the resources that you would like help with: None THRIVE Score: 0 AUDIT C Alcohol Use Questionnaire (AUDIT-C) 1. How often do you have a drink containing alcohol?: Never Total Score: 0 Score Reviewed/Action Taken: Yes SMOOTH-7 AMB Questionnaire SMOOTH-7 Date SMOOTH - 7 assessed: 08/28/23 Feeling nervous, anxious, or on edge: 0 = Not at all Not being able to stop or control worryin = Not at all Worrying too much about different things: 0 = Not at all Trouble relaxin = Not at all Being so restless that it is hard to sit still: 0 = Not at all Becoming easily annoyed or irritable: 0 = Not at all Feeling afraid as if something awful might happen: 0 = Not at all Total SMOOTH-7 score (0-4 normal; 5-9 mild; 10-14 moderate; 15-21 severe): 0 Source: Developed by Drs. John Yan, Cherrie Peralta, Christopher Burt and colleagues, with an educational ney from [employer]. Review of Systems Const Denies chills, Denies headache(s) and Denies weight loss ENT Denies headache(s) Card Denies chest pain, Denies syncope, Denies irregular heart rhythm and Denies dyspnea Resp Denies chest congestion, Denies cough and Denies dyspnea GI Denies abdominal pain, Denies change in stool character, Denies nausea and Denies vomiting Musc Denies deformity and Denies joint swelling Neuro Denies syncope and Denies headache(s) Physical exam (Primary Care) Vital Signs: Last Vital Signs Pulse 67 08/28/23 09:16 BP 134/80 08/28/23 09:16 Pulse Ox 98 08/28/23 09:16 Oxygen Delivery Method Room Air 08/28/23 09:16 BMI result Body Mass Index 38.2 Tobacco/Smoking Status: Tobacco use Status Tobacco use date assessed 08/28/23 08/28/23 09:18 Patient Tobacco Use Status Former Tobacco user 08/28/23 09:18 Tobacco use type Cigarette 08/28/23 09:18 e-Cigarette/Vaping Use Never Used 08/28/23 09:18 PHQ-9: PHQ-9 Score PHQ-9: Total score 0 08/28/23 09:35 Depression Screening Interpretation: Negative Thrive Assessment: Date of Thrive Assessment Date Thrive assessed 08/28/23 08/28/23 09:18 Const General: cooperative, comfortable, no acute distress and alert Neck Neck: Yes no lymphadenopathy Thyroid: Thyroid normal Resp Effort & Inspection: normal respiratory effort Auscultation: clear to auscultation bilaterally Percussion: percussion normal Cardio Jugular venous distension: no JVD Palpation: normal PMI Rate: regular rate Rhythm: regular rhythm Heart sounds: S1 normal heart sound present and S2 normal heart sound present GI Inspection: Yes normal to inspection Palpation (GI): No hepatosplenomegaly present Skin General skin exam: no rashes or lesions noted Extrem General: Yes no clubbing, cyanosis or edema Assessment and Plan Assessment & Plan (1) Hyperlipidemia: Code(s): E78.5 - Hyperlipidemia, unspecified Qualifiers: Hyperlipidemia type: pure hypercholesterolemia Qualified Code(s): E78.00 - Pure hypercholesterolemia, unspecified Plan: stable; same rx Coding Level of Care Code Est Pt Level 3 (97086) Diagnoses Pure hypercholesterolemia E78.00 Hyperlipidemia type: pure hypercholesterolemia Additional Codes PHQ-9 - 87183 - PHQ-9 Billing: ([id number])
== END 2023-08-28 09:53 | disposition home or self-care (01) ==
PROVIDERS: PCP Internal Medicine; Visit Provider Internal Medicine
DX: E78.00 Pure hypercholesterolemia, unspecified (principal)
CPT/HCPCS: 99213

== ENCOUNTER 2023-09-09 11:00 | Outpatient (AMB) | payer OTHER, SELFPAY ==
--- NOTE | 2023-09-09 11:07 | HO.NEPHOV ---
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 He has diabetic hypertensive renal disease. His blood sugar control is very good now. His blood pressure has been at goal. He has been tolerating Jardiance as well as lisinopril. He has not had any trulicity for some time. He has no hypotension or hypoglycemias. He has no pedal edema. His urine output is good. He had no recent exacerbation of gout. He denies any chest pain, shortness of breath, proximal nocturnal dyspnea, orthopnea or urinary symptoms. He feels well except for tiredness PFSH Medical History Leukocytosis CKD (chronic kidney disease) stage 2, GFR 60-89 ml/min Acute kidney injury Kidney disease Type 2 diabetes mellitus with obesity Type 2 diabetes mellitus with chronic kidney disease Diabetes mellitus with coincident hypertension Type 2 diabetes mellitus with diabetic polyneuropathy HTN (hypertension) Obesity due to excess calories Hyperlipidemia Diabetes type 2, uncontrolled Diabetes mellitus Surgical History History of colonoscopy Hx of tooth extraction Family History Mother Diabetes Father No problems noted. Social History Household Members: None Housing: House Alcohol intake: never Patient Tobacco Use Status: Former Tobacco user Tobacco use type: Cigarette e-Cigarette/Vaping Use: Never Used Second Hand Smoke Exposure: No Substance Use Type: Former Substance User and Marijuana service: No Current occupational status: employed Cognitive needs: No Hearing needs: No Vision needs: No Physical Exam Vital Signs: Last Vital Signs Pulse 70 09/09/23 11:09 BP 130/56 L 09/09/23 11:09 Pulse Ox 96 09/09/23 11:09 Oxygen Delivery Method Room Air 09/09/23 11:09 BMI result Body Mass Index 38.7 Const General: comfortable and no acute distress Orientation/consciousness: patient oriented x3 HEENT Head: Yes normocephalic Mouth: Normal oral and palatal mucosa present Eyes EOM: EOMs intact bilaterally Neck Neck: Yes supple Resp Auscultation: clear to auscultation bilaterally Cardio Jugular venous distension: no JVD Rate: regular rate GI Palpation (GI): Soft to palpation Auscultation: normal bowel sounds General: Yes no CVA tenderness Back/Spine/Pelvis Back: no CVA tenderness Skin General skin exam: no rashes or lesions noted Neuro General: patient oriented x3 and moves all extremities Extrem General: Yes no pedal edema Results Reviewed Nephrology Results: Hgb 15.2 g/dl (14.0-18.0) 08/25/23 WBC 8.0 X10*3/uL (4.8-10.8) 08/25/23 Plt Count 207 X10*3/uL (160-400) 08/25/23 Sodium 141 mmol/L (135-145) 08/25/23 Potassium 4.2 mmol/L (3.3-5.1) 08/25/23 Chloride 107 mmol/L (96-108) 08/25/23 Carbon Dioxide 25 mmol/L (22-29) 08/25/23 BUN 20 mg/dL (9-16) H 08/25/23 Creatinine 1.29 mg/dL (0.5-1.4) 08/25/23 Calcium 9.5 mg/dL (8.4-10.2) 08/25/23 Urine Protein 100 (2+) mg/dL (Neg-Trace) H 08/17/22 Urine Creatinine 111.70 mg/dL 08/25/23 Protein/Creatinin Ratio TNP 08/25/23 Assessment & Plan Assessment & Plan (1) Tiredness: Code(s): R53.83 - Other fatigue Category: Medical (2) HTN (hypertension): Code(s): I10 - Essential (primary) hypertension Category: Medical Qualifiers: Hypertension type: essential hypertension Qualified Code(s): I10 - Essential (primary) hypertension (3) CKD (chronic kidney disease) stage 2, GFR 60-89 ml/min: Code(s): N18.2 - Chronic kidney disease, stage 2 (mild) Category: Medical Plan Bobby has a diabetic hypertensive renal disease. His hemoglobin A1c has been under 6. His urine output is good. Has no prostatic symptoms. He has no edema, hypoglycemia or hypotension. He is tolerating Jardiance as well as KEI-inhibitor. He does not have any Trulicity now. I asked him to discuss with PCP and go up on Jardiance given lack of availability of Trulicity. He has tiredness .I ordered TSH. It can be due to his medications. He was counseled to avoid nonsteroidal anti-inflammatory medications even during gout exacerbations. He should maintain good hydration. He can continue current dose of allopurinol. I did not make any other medication changes today. Follow-up blood work ordered. All questions answered. Follow-up given. Orders: Orders TSH reflex Free T4 Today R53.83 - Other fatigue Creatinine Today I10 - Essential (primary) hypertension, N18.2 - Chronic kidney disease, stage 2 (mild) Blood Urea Nitrogen Today I10 - Essential (primary) hypertension, N18.2 - Chronic kidney disease, stage 2 (mild) Electrolytes Today I10 - Essential (primary) hypertension, N18.2 - Chronic kidney disease, stage 2 (mild) Protein Creatinine Ratio, Ur Today I10 - Essential (primary) hypertension, N18.2 - Chronic kidney disease, stage 2 (mild) Coding Level of Care Code Est Pt Level 4 (36910) Diagnoses Tiredness R53.83 Essential hypertension I10 Hypertension type: essential hypertension CKD (chronic kidney disease) stage 2, GFR 60-89 ml/min N18.2
[2023-09-09 11:09] VITALS: BP 130/56; PULSE 70; O2SAT 96; BMI 38.7
== END 2023-09-09 11:26 | disposition home or self-care (01) ==
PROVIDERS: PCP Internal Medicine; Visit Provider Internal Medicine Nephrology
DX: R53.83 Other fatigue (principal); I12.9 Hypertensive chronic kidney disease with stage 1 through stage 4 chronic kidney disease, or unspecified chronic kidney disease; N18.2 Chronic kidney disease, stage 2 (mild)
CPT/HCPCS: 99214

== ENCOUNTER → 2023-09-09 11:00 | Outpatient (BNVA) | payer OTHER, SELFPAY | PROVIDERS: PCP Internal Medicine; Visit Provider Internal Medicine Nephrology ==

== ENCOUNTER 2024-01-26 09:22 | Outpatient (REF) | payer OTHER, MEDICARE, SELFPAY ==
[2024-01-26 10:46] LABS: Estimated Average Glucose 123 mg/dL; Hemoglobin A1C 162.7189 umol/L; Hemoglobin A1c % 5.9 % (<6.0); Total Hemoglobin (HGBA1C) 3946.5979 umol/L
[2024-01-26 11:19] LABS: Glucose Fasting 108 mg/dL (60-99)
[2024-01-26 11:31] LABS: Anion Gap 14 (12-20); Blood Urea Nitrogen 22 mg/dL (9-16); Carbon Dioxide 24 mmol/L (22-29); Chloride 106 mmol/L (96-108); Cholesterol 183 mg/dL (<200); Estimated Glomerular Filt Rate > 60; HDL Cholesterol 47 mg/dL (>40); LDL Cholesterol Calculated 107 mg/dL (<100); Potassium 3.5 mmol/L (3.3-5.1); Sodium 140 mmol/L (135-145); Triglycerides 146 mg/dL (<150)
[2024-01-26 11:36] LABS: TSH reflex Free T4 1.62 uIU/mL (0.32-4.0)
[2024-01-26 13:29] LABS: Creatinine Urine 193.21 mg/dL; Protein/Creatinine Ratio, Ur 0.12 (<0.2); Total Protein Urine Random 23 mg/dL (<12)
== END 2024-01-26 09:23 | disposition home or self-care (01) ==
LOC: HO.LAB 09:22
PROVIDERS: Internal Medicine Nephrology; PCP Internal Medicine; Visit Provider Internal Medicine
DX: I10 Essential (primary) hypertension (principal); R53.83 Other fatigue; N18.2 Chronic kidney disease, stage 2 (mild); R73.9 Hyperglycemia, unspecified; Z13.220 Encounter for screening for lipoid disorders
CPT/HCPCS: 36415; 80051; 80061; 82565; 82570; 82947; 83036; 84156; 84443; 84520

== ENCOUNTER 2024-01-29 08:52 | Outpatient (AMB) | payer OTHER, SELFPAY ==
[2024-01-29 08:55] VITALS: BP 154/80; PULSE 74; O2SAT 98; BMI 39.7
--- NOTE | 2024-01-29 08:55 | MHC.PC.OV ---
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 Required: No Accompanied by: Self / Same As Patient Allergies No Known Allergies Allergy (Verified 01/29/24 08:55) Medication List - Last Reconciled 02/01/24 by Nash Garcia MD allopurinol 300 mg PO DAILY atorvastatin 40 mg PO DAILY blood sugar diagnostic (Accu-Chek Guide test strips) As directed one time a day blood-glucose meter (Accu-Chek Guide Me Glucose Meter) As directed dulaglutide (Trulicity) 3 mg (0.5 mL) subcut MCNAMARA empagliflozin (Jardiance) 10 mg PO DAILY indomethacin 25 mg PO TID PRN lansoprazole 30 mg PO DAILY lisinopril 40 mg PO DAILY metoprolol tartrate 100 mg PO BID Tobacco use date assessed: 08/28/23 Fall risk assessment: No Falls in past year Last assessed Fall Risk: 01/29/24 Dental Screening Dental Screen Date: 08/28/23 HPI 4mof\u HPI Details DM; sees endo; doing well PFS Medical History (Updated 09/09/23 @ 11:24 by Maulik Bass MD) CKD (chronic kidney disease) stage 2, GFR 60-89 ml/min Leukocytosis Acute kidney injury Kidney disease Type 2 diabetes mellitus with obesity Type 2 diabetes mellitus with chronic kidney disease Diabetes mellitus with coincident hypertension Type 2 diabetes mellitus with diabetic polyneuropathy HTN (hypertension) Obesity due to excess calories Hyperlipidemia Diabetes type 2, uncontrolled Diabetes mellitus Surgical History History of colonoscopy Hx of tooth extraction Family History Mother Diabetes Father No problems noted. Social History Household Members: None Housing: House Alcohol intake: never Patient Tobacco Use Status: Former Tobacco user Tobacco use type: Cigarette e-Cigarette/Vaping Use: Never Used Second Hand Smoke Exposure: No Substance Use Type: Former Substance User and Marijuana service: No Current occupational status: employed Cognitive needs: No Hearing needs: No Vision needs: No Questionnaire Thrive Questionnaire Date Thrive assessed: 08/28/23 AUDIT C Alcohol Use Questionnaire (AUDIT-C) 3. How often do you have six or more drinks on one occasion?: Never Total Score: 0 SMOOTH-7 AMB Questionnaire SMOOTH-7 Date SMOOTH - 7 assessed: 08/28/23 Source: Developed by Drs. John Yan, Cherrie Peralta, Christopher Burt and colleagues, with an educational ney from [employer]. Review of Systems Const Denies chills, Denies headache(s) and Denies weight loss ENT Denies headache(s) Card Denies chest pain, Denies syncope, Denies irregular heart rhythm and Denies dyspnea Resp Denies chest congestion, Denies cough and Denies dyspnea GI Denies abdominal pain, Denies change in stool character, Denies nausea and Denies vomiting Musc Denies deformity and Denies joint swelling Neuro Denies syncope and Denies headache(s) Physical exam (Primary Care) Vital Signs: Last Vital Signs Pulse 74 01/29/24 08:55 BP 154/80 H 01/29/24 08:55 Pulse Ox 98 01/29/24 08:55 Oxygen Delivery Method Room Air 01/29/24 08:55 BMI result Body Mass Index 39.7 Tobacco/Smoking Status: Tobacco use Status Tobacco use date assessed 08/28/23 01/29/24 08:55 Patient Tobacco Use Status Former Tobacco user 01/29/24 08:55 Tobacco use type Cigarette 01/29/24 08:55 e-Cigarette/Vaping Use Never Used 01/29/24 08:55 Thrive Assessment: Date of Thrive Assessment Date Thrive assessed 08/28/23 01/29/24 08:55 Const General: cooperative, comfortable, no acute distress and alert Neck Neck: Yes no lymphadenopathy Thyroid: Thyroid normal Resp Effort & Inspection: normal respiratory effort Auscultation: clear to auscultation bilaterally Percussion: percussion normal Cardio Jugular venous distension: no JVD Palpation: normal PMI Rate: regular rate Rhythm: regular rhythm Heart sounds: S1 normal heart sound present and S2 normal heart sound present GI Inspection: Yes normal to inspection Palpation (GI): No hepatosplenomegaly present Skin General skin exam: no rashes or lesions noted Extrem General: Yes no clubbing, cyanosis or edema Coding Level of Care Code Est Pt Level 3 (34101) Diagnoses Type 2 diabetes mellitus with obesity E11.69; E66.9 Assessment & Plan Assessment & Plan (1) Type 2 diabetes mellitus with obesity: Code(s): E11.69 - Type 2 diabetes mellitus with other specified complication; E66.9 - Obesity, unspecified Category: Medical Plan: stable; same rx per endo Orders: Orders Complete Blood Count Auto Diff 01/29/24 Z13.0 - Encounter for screening for diseases of the blood and blood-forming organs and certain disorders involving the immune mechanism Hemoglobin A1c 01/29/24 R73.9 - Hyperglycemia, unspecified Uric Acid 01/29/24 M10.9 - Gout, unspecified Lipid Panel 01/29/24 Z13.220 - Encounter for screening for lipoid disorders Thyroid Stimulating Hormone 01/29/24 Z13.29 - Encounter for screening for other suspected endocrine disorder
== END 2024-01-29 09:18 | disposition home or self-care (01) ==
PROVIDERS: PCP Internal Medicine; Visit Provider Internal Medicine
DX: E11.69 Type 2 diabetes mellitus with other specified complication (principal); E66.9 Obesity, unspecified; Z68.39 Body mass index [BMI] 39.0-39.9, adult

== ENCOUNTER 2024-03-18 07:27 | Outpatient (REF) | payer MEDICARE, OTHER, SELFPAY ==
[2024-03-18 08:59] LABS: Anion Gap 13 (12-20); Blood Urea Nitrogen 21 mg/dL (9-16); Carbon Dioxide 26 mmol/L (22-29); Chloride 108 mmol/L (96-108); Estimated Glomerular Filt Rate 51; Potassium 4.2 mmol/L (3.3-5.1); Sodium 143 mmol/L (135-145)
[2024-03-18 09:33] LABS: Creatinine Urine 121.71 mg/dL; Protein/Creatinine Ratio, Ur 0.09 (<0.2); Total Protein Urine Random 11 mg/dL (<12)
== END 2024-03-18 07:28 | disposition home or self-care (01) ==
LOC: HO.LAB 07:27
PROVIDERS: PCP Internal Medicine; Visit Provider Internal Medicine Nephrology
DX: N18.2 Chronic kidney disease, stage 2 (mild) (principal)
CPT/HCPCS: 36415; 80051; 82565; 82570; 84156; 84520

== ENCOUNTER 2024-03-21 11:37 | Outpatient (AMB) | payer MEDICARE, OTHER, SELFPAY ==
--- NOTE | 2024-03-21 12:22 | HO.NEPHOV_ITS ---
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 He has diabetic hypertensive renal disease. His blood sugar control is very good now. His blood pressure has been at goal. He has been tolerating Jardiance as well as lisinopril. He has no hypotension or hypoglycemias. He has no pedal edema. His urine output is good. He had no recent exacerbation of gout. He denies any chest pain, shortness of breath, proximal nocturnal dyspnea, orthopnea or urinary symptoms. He feels well except for tiredness [facility] Medical History (Updated 03/21/24 @ 12:36 by Maulik Bass MD) CKD (chronic kidney disease) stage 2, GFR 60-89 ml/min Leukocytosis Acute kidney injury Kidney disease Type 2 diabetes mellitus with obesity Type 2 diabetes mellitus with chronic kidney disease Diabetes mellitus with coincident hypertension Type 2 diabetes mellitus with diabetic polyneuropathy HTN (hypertension) Obesity due to excess calories Hyperlipidemia Diabetes type 2, uncontrolled Diabetes mellitus Surgical History History of colonoscopy Hx of tooth extraction Family History Mother Diabetes Father No problems noted. Social History Household Members: None Housing: House Alcohol intake: never Patient Tobacco Use Status: Former Tobacco user Tobacco use type: Cigarette e-Cigarette/Vaping Use: Never Used Second Hand Smoke Exposure: No Substance Use Type: Former Substance User and Marijuana service: No Current occupational status: employed Cognitive needs: No Hearing needs: No Vision needs: No Review of Systems Const All systems reviewed & are unremarkable except as noted in HPI and below Physical Exam Vital Signs: Last Vital Signs Pulse 56 03/21/24 12:23 BP 122/70 03/21/24 12:23 Pulse Ox 97 03/21/24 12:23 Oxygen Delivery Method Room Air 03/21/24 12:23 BMI result Body Mass Index 40.6 Const General: comfortable and no acute distress Orientation/consciousness: patient oriented x3 HEENT Head: Yes normocephalic Mouth: Normal oral and palatal mucosa present Eyes EOM: EOMs intact bilaterally Neck Neck: Yes supple Resp Auscultation: clear to auscultation bilaterally Cardio Jugular venous distension: no JVD Rate: regular rate GI Palpation (GI): Soft to palpation Auscultation: normal bowel sounds General: Yes no CVA tenderness Back/Spine/Pelvis Back: no CVA tenderness Skin General skin exam: no rashes or lesions noted Neuro General: patient oriented x3 and moves all extremities Extrem General: Yes no pedal edema Results Reviewed Nephrology Results: Hgb 15.2 g/dl (14.0-18.0) 08/25/23 WBC 8.0 X10*3/uL (4.8-10.8) 08/25/23 Plt Count 207 X10*3/uL (160-400) 08/25/23 Sodium 143 mmol/L (135-145) 03/18/24 Potassium 4.2 mmol/L (3.3-5.1) 03/18/24 Chloride 108 mmol/L (96-108) 03/18/24 Carbon Dioxide 26 mmol/L (22-29) 03/18/24 BUN 21 mg/dL (9-16) H 03/18/24 Creatinine 1.40 mg/dL (0.5-1.4) 03/18/24 Calcium 9.5 mg/dL (8.4-10.2) 08/25/23 Urine Creatinine 121.71 mg/dL 03/18/24 Protein/Creatinin Ratio 0.09 (<0.2) 03/18/24 Assessment & Plan Assessment & Plan (1) CKD stage 3a, GFR 45-59 ml/min: Code(s): N18.31 - Chronic kidney disease, stage 3a Category: Medical (2) Type 2 diabetes mellitus with chronic kidney disease: Code(s): E11.22 - Type 2 diabetes mellitus with diabetic chronic kidney disease Category: Medical Qualifiers: Diabetes mellitus 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 His hemoglobin A1c has been under 6. His urine output is good. Has no prostatic symptoms. He has no edema , hypoglycemia or hypotension. He is tolerating Jardiance as well as KEI- inhibitor. He needs to loose weight. He was counseled to avoid nonsteroidal anti-inflammatory medications even during gout exacerbations. He should maintain good hydration. He can continue current dose of allopurinol. I did not make any other medication changes today. Follow-up blood work ordered. All questions answered. Follow-up given. Orders: Orders Blood Urea Nitrogen 7 Months N18.31 - Chronic kidney disease, stage 3a Electrolytes 7 Months N18.31 - Chronic kidney disease, stage 3a Creatinine 7 Months N18.31 - Chronic kidney disease, stage 3a Coding Level of Care Code Est Pt Level 4 (21861) Diagnoses CKD stage 3a, GFR 45-59 ml/min N18.31 Type 2 diabetes mellitus with stage 3a chronic kidney disease, without long-term current use of insulin E11.22; N18.31 Diabetes mellitus superintendent marine [employer] insulin use: without senior care use Chronic kidney disease stage: stage 3 (moderate) Chronic kidney disease stage 3 subtype: stage 3a (GFR 45-59) Essential hypertension I10 Hypertension type: essential hypertension
[2024-03-21 12:23] VITALS: BP 122/70; PULSE 56; O2SAT 97; BMI 40.6
== END 2024-03-21 12:40 | disposition home or self-care (01) ==
PROVIDERS: PCP Internal Medicine; Visit Provider Internal Medicine Nephrology
DX: I12.9 Hypertensive chronic kidney disease with stage 1 through stage 4 chronic kidney disease, or unspecified chronic kidney disease (principal); E11.22 Type 2 diabetes mellitus with diabetic chronic kidney disease; N18.31 Chronic kidney disease, stage 3a
CPT/HCPCS: 99214

== ENCOUNTER → 2024-03-21 11:37 | Outpatient (BNVA) | payer MEDICARE, OTHER, SELFPAY | PROVIDERS: PCP Internal Medicine; Visit Provider Internal Medicine Nephrology | DX: E11.22 Type 2 diabetes mellitus with diabetic chronic kidney disease (principal); I12.9 Hypertensive chronic kidney disease with stage 1 through stage 4 chronic kidney disease, or unspecified chronic kidney disease; N18.31 Chronic kidney disease, stage 3a | CPT/HCPCS: 99212 ==

== ENCOUNTER 2024-05-30 11:14 | Outpatient (AMB) | payer MEDICARE, OTHER, SELFPAY ==
[2024-05-30 11:19] VITALS: BP 152/92; PULSE 84; O2SAT 96; BMI 40.6
--- NOTE | 2024-05-30 11:19 | MHC.PC.OV ---
Vital Signs 05/30/24 11:19 Height 5 ft 11 in Weight 291 lb BMI 40.6 BP 152/92 H Blood Pressure Location Lt brachial Position Sitting Pulse 84 Pulse Source Pulse Oximeter Pulse Oximetry (%) 96 Oxygen Delivery Method Room Air Intake Visit Reasons: 3 month f/u Allergies No Known Allergies Allergy (Verified 05/30/24 11:19) Medication List - Last Reconciled 05/31/24 by Nash Garcia MD allopurinol 300 mg PO DAILY atorvastatin 40 mg PO DAILY blood sugar diagnostic (Accu-Chek Guide test strips) As directed one time a day blood-glucose meter (Accu-Chek Guide Me Glucose Meter) As directed dulaglutide (Trulicity) 3 mg (0.5 mL) subcut MCNAMARA empagliflozin (Jardiance) 10 mg PO DAILY indomethacin 25 mg PO TID PRN lansoprazole 30 mg PO DAILY lisinopril 40 mg PO DAILY metoprolol tartrate 100 mg PO BID Tobacco use date assessed: 05/30/24 Fall risk assessment: No Falls in past year Last assessed Fall Risk: 05/30/24 Dental Screening Dental Screen Date: 05/30/24 Did you have a dental visit in the last 12 months?: Yes Did you have a dental problem in the last 6 months where you did not have access to dental care?: No Was dental information given to patient?: Patient has dentist HPI 3 month f/u HPI Details HTN and DM; stable and compliant [facility] Medical History (Updated 03/21/24 @ 12:36 by Maulik Bass MD) CKD (chronic kidney disease) stage 2, GFR 60-89 ml/min Leukocytosis Acute kidney injury Kidney disease Type 2 diabetes mellitus with obesity Type 2 diabetes mellitus with chronic kidney disease Diabetes mellitus with coincident hypertension Type 2 diabetes mellitus with diabetic polyneuropathy HTN (hypertension) Obesity due to excess calories Hyperlipidemia Diabetes type 2, uncontrolled Diabetes mellitus Surgical History History of colonoscopy Hx of tooth extraction Family History Mother Diabetes Father No problems noted. Social History Household Members: None Housing: House Alcohol intake: never Patient Tobacco Use Status: Former Tobacco user Tobacco use type: Cigarette e-Cigarette/Vaping Use: Never Used Second Hand Smoke Exposure: No Substance Use Type: Former Substance User and Marijuana service: No Current occupational status: employed Cognitive needs: No Hearing needs: No Vision needs: No Questionnaire PHQ-9 Over the last 2 weeks, how often have you been bothered by any of the following problems? 1. Little interest or pleasure in doing things: not at all 2. Feeling down, depressed, or hopeless: not at all 3. Trouble falling or staying asleep, or sleeping too much: not at all 4. Feeling tired or having little energy: not at all 5. Poor appetite or overeating: not at all 6. Feeling bad about yourself - or that you are a failure or have let yourself or your family down: not at all 7. Trouble concentrating on things, such as reading the newspaper or watching television: not at all 8. Moving or speaking so slowly that other people could have noticed. Or the opposite - being so fidgety or restless that you have been moving around a lot more than usual: not at all 9. Thoughts that you would be better off or of hurting yourself in some way: not at all Total score: 0 Depression Screening Interpretation: Negative Depression Screening Done: Yes Source: Developed by Drs. John Yan, Cherrie Peralta, Christopher Burt and colleagues, with an educational ney from [employer]. Thrive Questionnaire Date Thrive assessed: 05/30/24 I am a: Patient What is your living situation today?: I have a steady place to live Within the past 12 months, did the food you bought not last and you didn't have the money to get more?: Never true Within the past 12 months, did you worry whether your food would run out before you got money to buy more?: Never true Do you have trouble paying for medicines?: No Do you have trouble getting transportation to medical appointments?: No Do you have trouble paying your heating and electricity bill?: No Do you have trouble taking care of your child, family member or friend?: No Do you have trouble with day-to-day activities such as bathing, preparing meals, shopping, managing finances, etc.?: No Are you currently unemployed and looking for a job?: No Are you interested in more education?: No Currently or been in a relationship where the following occur: No concerns reported THRIVE Score: 0 AUDIT C Alcohol Use Questionnaire (AUDIT-C) 2. How many drinks containing alcohol do you have on a typical day when you are drinking?: 1 or 2 3. How often do you have six or more drinks on one occasion?: Never Total Score: 0 SMOOTH-7 AMB Questionnaire SMOOTH-7 Date SMOOTH - 7 assessed: 05/30/24 Feeling nervous, anxious, or on edge: 0 = Not at all Not being able to stop or control worryin = Not at all Worrying too much about different things: 0 = Not at all Trouble relaxin = Not at all Being so restless that it is hard to sit still: 0 = Not at all Becoming easily annoyed or irritable: 0 = Not at all Feeling afraid as if something awful might happen: 0 = Not at all Total SMOOTH-7 score (0-4 normal; 5-9 mild; 10-14 moderate; 15-21 severe): 0 Source: Developed by Drs. John Yan, Cherrie Peralta, Christopher Burt and colleagues, with an educational ney from [employer]. Review of Systems Const Denies chills, Denies headache(s) and Denies weight loss ENT Denies headache(s) Card Denies chest pain, Denies syncope, Denies irregular heart rhythm and Denies dyspnea Resp Denies chest congestion, Denies cough and Denies dyspnea GI Denies abdominal pain, Denies change in stool character, Denies nausea and Denies vomiting Musc Denies deformity and Denies joint swelling Neuro Denies syncope and Denies headache(s) Physical exam (Primary Care) Vital Signs: Last Vital Signs Pulse 84 05/30/24 11:19 BP 152/92 H 05/30/24 11:19 Pulse Ox 96 05/30/24 11:19 Oxygen Delivery Method Room Air 05/30/24 11:19 BMI result Body Mass Index 40.6 Tobacco/Smoking Status: Tobacco use Status Tobacco use date assessed 05/30/24 05/30/24 11:25 Patient Tobacco Use Status Former Tobacco user 05/30/24 11:25 Tobacco use type Cigarette 05/30/24 11:25 e-Cigarette/Vaping Use Never Used 05/30/24 11:25 PHQ-9: PHQ-9 Score PHQ-9: Total score 0 05/30/24 11:25 Depression Screening Interpretation: Negative Thrive Assessment: Date of Thrive Assessment Date Thrive assessed 05/30/24 05/30/24 11:25 Currently or been in a relationship where the following occur: No concerns reported Const General: cooperative, comfortable, no acute distress and alert Neck Neck: Yes no lymphadenopathy Thyroid: Thyroid normal Resp Effort & Inspection: normal respiratory effort Auscultation: clear to auscultation bilaterally Percussion: percussion normal Cardio Jugular venous distension: no JVD Palpation: normal PMI Rate: regular rate Rhythm: regular rhythm Heart sounds: S1 normal heart sound present and S2 normal heart sound present GI Inspection: Yes normal to inspection Palpation (GI): No hepatosplenomegaly present Skin General skin exam: no rashes or lesions noted Extrem General: Yes no clubbing, cyanosis or edema Coding Level of Care Code Est Pt Level 3 (39230) Diagnoses Diabetes mellitus with coincident hypertension E11.9; I10 Assessment & Plan Assessment & Plan (1) Diabetes mellitus with coincident hypertension: Code(s): E11.9 - Type 2 diabetes mellitus without complications; I10 - Essential (primary) hypertension Category: Medical Plan: stable; same rx
--- OUTSIDE RECORDS SUMMARY | 2024-05-30 13:20 | XMS_ITS | Patient Health Record ---
Author Organization [facility] Address [address] [place] [address] Care Team Providers Care Professor Of Communication And Writing Name Role Phone Nash Garcia MD Primary Care Provider John Crouch Unavailable [phone] Allergies No Known Allergies Reason For Referral No Information Medications Medication SIG (Take, Route, Frequency, Duration) Notes Start Date End Date Status Lisinopril 40 MG Oral for 90 A ctive metFORMIN HCl 500 MG Oral for 90 Active Metoprolol Tartrate 100 MG Oral for 90 Active Trulicity 3 MG/0.5ML Subcutaneous for 84 Active Atorvastatin Calcium 40 MG Oral for 90 Active NIFEdipine ER 30 MG Oral for 90 Active Indomethacin 50 MG TAKE 1 CAPSULE BY [facility] 3 TIMES A DAY NEEDED FOR GOUT, TAKE WITH FOOD OR MILK Oral for 30 Active hydroCHLOROthiazide 25mg Active Immunizations Vaccine Route Administration Date Status Comme nts Influenza Unknown 01/14/2021 Administered Social History Alcohol Screen Question Answer Notes Did you have a drink containing alcohol in the p ast year? No Points 0 Interpretation Negative Section Notes: Nonsmoker; 3-5 drinks per we ek Nonsmoker; No alcohol since 2019 Problems Problem Type SNOMED Code ICD Code Onset Dates Problem Status W/U Status Risk Notes Problem Screening for malignant neoplasm of colon (984572452) Encounter for screening for malignant neoplasm of colon (Z12.11) Active confirmed Problem Constipation (56542487) Constipation (K59.00) Active confirmed Problem Diverticular disease of colon (713375180) Diverticulosis of large intestine without perforation or abscess without bleeding (K57.30) Active confirmed Plan Of Treatment Future Test Test Name Order Date COLONOSCOPY 06/27/2011 COLONOSCOPY 01/28/2022 Insurance Providers Payer Name Payer Address Payer Phone Subscriber Number Group Number Insured Name Patient Relationship to Insured Coverage Start Date Coverage End Date [facility] [address] [facility] [phone] [id number] CALLUM LINARES Self - patient is the insured Medical (General) History Medical History History ICD Code Hyperlipidemia HTN Anal fissure-treated medically many year s ago Denies [place],CVA,Lung disease. Renal insufficiency in relat ion to his diabetes and hypertension-he is followed by a bond analyst DM Screening Colonoscopy 08/2011 with only h yperplastic polyps Surgical History Surgery Date(Month/Year) Removal of cyst on back
--- OUTSIDE RECORDS SUMMARY | 2024-05-30 13:20 | XMS_ITS | Clinical Summary ---
Author Organization [facility] Address [address] [facility] [address] [place] [address] Phone Care Team Providers Care Structural Steel Painter Name Role Phone Nash Garcia MD Primary Care Provider [phone] Allergies No known active allergies Medications atorvastatin (LIPITOR) 40 MG tablet Take 40 mg by mouth daily Active Dulaglutide 3 MG/0.5ML solution pen-injector Inject 3 mL under the skin per week Active lisinopril 40 MG tablet Take 40 mg by mouth 1 (one) time each day Active metFORMIN (GLUCOPHAGE) 500 MG tablet Take 500 mg by mouth 1 (one) time each day with breakfast Active metoprolol tartrate (LOPRESSOR) 100 MG tablet Take 100 mg by mouth twice a day Active Multiple Vitamins-Minera ls (multivitamin with minerals) tablet Take 1 tablet by mouth 1 (one) time each day Active Jardiance 10 MG tablet Take 10 mg by mouth 1 (one) time each day 3 Active Active Problems Problem Noted Date Diagnosed Date Gout 11/07/2022 11/07/2022 Ankle pain 11/07/2022 11/07/2022 Enzyme level - finding 11/07/2022 Fall 11/07/2022 11/07/2022 Injury of kidney 11/07/2022 11/07/2022 Lactic acidosis 11/07/2022 11/07/2022 Leukocytosis 11/07/2022 11/07/2022 Pain in joint 11/07/2022 11/07/2022 Polyneuropathy 11/07/2022 11/07/2022 Rhabdomyolysis 11/07/2022 11/07/2022 Weakness 11/07/2022 11/07/2022 Constipation 04/09/2022 Patient encounter status 03/28/2022 Overview (04/09/2022): Last Assessment & Plan: The patient has high normal total protein and low albumin, serum calcium corrects to 9.7. I suspect that the low albumin may have something to do with CKD stage III I am not certain. I will check serum protein electrophoresis because he has a pattern of high total protein low albumin. I also check a CBC for evaluation of anemia. Type 2 diabetes mellitus 03/28/2022 Overview (04/09/2022): Last Assessment & Plan: Controlled based on his last hemoglobin A1c 5.7%. The patient would like to protect his kidney and take less medications. I suggested we can add Jardiance 10 mg and decrease metformin to 500 mg and he should continue Trulicity 1.5 mg weekly. If he can get this medication Jardiance approved and if he tolerates it and has good glycemic control we could potentially stop metformin altogether. He was advised that with Jardiance he needs to drink plenty of water. His BUN is elevated so he is not getting enough water as it is now. But he could get acute renal insufficiency if he does not drink enough water with Jardiance because it does cause glucosuria. However the kidney functions do improve with this medication if he has adequate hydration. The other issue is that he needs to have proper hygiene in order to prevent genital mycotic infections so he needs to shower daily and he can potentially use wipes after urinating. He should repeat hemoglobin A1c, fasting lipid panel, fasting urine microalbumin creatinine ratio prior to the follow-up visit. Stage 3a chronic kidney disease 02/19/2022 Hyperuricemia 02/19/2022 Stage 3b chronic kidney disease 04/04/2021 Type 2 diabetes mellitus wit h diabetic chronic kidney disease 02/27/2021 Hypertension 02/27/2021 Resolved Problems Problem Noted Date Diagnosed Date Resolved Date Screening for malignant neoplasm of colon 02/18/2022 02/18/2022 Type 2 diabetes mellitus wit h diabetic autonomic (poly)neuropathy 02/27/2021 02/18/2022 Obesity 02/27/2021 02/18/2022 Type 2 diabetes mellitus wit h diabetic polyneuropathy 02/27/2021 02/18/2022 Hyperlipidemia 02/27/2021 02/18/2022 Family History Medical History Relation Comments Anemia Father Gout Father Melanoma Father Diabetes Mother mother's side perez ve history of diabetes Liver disease Mother Relation Status Comments Father Mother Social History Tobacco Use Types Packs/Day Years Used Date Smoking Tobacco: Former Cigarettes 0.3 5 0 03/16/1974 - 03/16/1979 Smokeless Tobacco: Never Alcohol Use Standard Drinks/Week Comments Not Currently 0 (1 standard drink = 0.6 oz pur e alcohol) quit drinking Sex and Gender Information Value Date Recorded Sex Assigned at Not on file Legal Sex Male 1:55 PM EST Gender Identity Not on file Sexual Orientation Not on file Last Filed Vital Signs Vital Sign Reading Time Taken Comments Blood Pressure 130/80 11/07/2022 9:21 AM EDT Pulse 71 11/07/2022 9:21 AM EDT Temperature - - Respiratory Rate - - Oxygen Saturation 98% 06/03/2021 10:48 AM EDT Inhaled Oxygen Concentration - - Weight 118 kg (260 lb 12.8 oz) 11/07/2022 9:21 A M EDT Height 182.9 cm (6') 04/04/2021 3:27 PM EST Body Mass Index 35.37 04/04/2021 3:27 PM EST Plan of Treatment Health Maintenance Due Date Last Done Comments Pneumococcal Vaccine: 65+ Years (1 of 2 - PCV) 1966 Pneumococcal Vaccine: Pediatrics (0 to 5 Years) and At-Risk Patients (6 to 64 Years) (1 of 2 - PCV) 1966 Colorectal Cancer Screening: Annual FOBT 08/31/2007 Colorectal Cancer Screening: Colonoscopy 08/31/2007 Colorectal Cancer Screening: Sigmoidoscopy 08/31/2007 Diabetes: Ophthalmology Exam 01/31/2021 Diabetes: Pedal Pulse Checked 01/31/2021 Diabetes: Sensory Foot Exam 01/31/2021 Diabetes: Visual Foot Exam 01/31/2021 Diabetes: Hemoglobin A1C 09/30/202207/01/ 023, 04/01/2022, 03/01/2021 Influenza Vaccine (#1) 2023 Hepatitis B Vaccine Aged Out No longe r eligible based on patient's age to complete this topic Procedures Procedure Name Priority Date/Time Associated Diagnosis Comments HEMOGLOBIN A1C Routine 07/01/2022 10:16 AM EDT from Last 3 Months or Most Recently Relevant to Health Maintenance Results * Hemoglobin A1c (07/01/2022 10:16 AM EDT) Hemoglobin A1C 5.4 (4.0-5.6) % [facility] Comment: MONITORING: In known diabetic patients, hemoglobin A1c targets should be discussed with health care provider. DIAGNOSTIC USE: ??The [place] Diabetes Association (ADA) and the World Health Organization (WHO) recommend the use of HbA1c to diagnose diabetes using a threshold of 6.5%. Patients who have an HbA1c between 5.7% and 6.4% are considered at increased risk for developing diabetes in the future. CAUTION: Falsely low HbA1c results may be observed in patients with hemolytic anemia, homozygous forms of abnormal hemoglobin (e.g. SS, CC, SC), , recent blood loss or hemoglobin F greater than 7%. Fructosamine may be used as an alternate test in these cases. REFERENCE: ADA: Standards of Medical Care in Diabetes 2020, The Journal of Clinical and Applied Research and Education Volume 43, Supplement 1 Testing performed or reported by [facility], a Service of [facility], [address] [place] [id number] Rain Cowan MD, Milled Rubber Tender [facility]# [id number] 07/01/2022 10:1 6 AM EDT 07/01/2022 10:19 AM EDT us Maulik Bass MD LAB BLOOD ORDERABLES Final Resul t [facility] from Last 3 Months or Most Recently Relevant to Health Maintenance [place] [id number] [facility] Care Teams Structural Steel Painter Relationship Specialty Start Date End Date Nash Garcia MD [address] [place] PCP - General Internal Medicine 01/31/21
== END 2024-05-30 11:47 | disposition home or self-care (01) ==
LOC: HO.HMCH 11:15
PROVIDERS: PCP Internal Medicine; Visit Provider Internal Medicine
DX: E11.9 Type 2 diabetes mellitus without complications (principal); I10 Essential (primary) hypertension

== ENCOUNTER → 2024-05-30 11:14 | Outpatient (BNVA) | payer MEDICARE, OTHER, SELFPAY | PROVIDERS: PCP Internal Medicine; Visit Provider Internal Medicine | DX: E11.9 Type 2 diabetes mellitus without complications (principal); I10 Essential (primary) hypertension | CPT/HCPCS: 99212 ==

== ENCOUNTER 2024-10-13 09:18 | Outpatient (REF) | payer MEDICARE, OTHER, SELFPAY ==
--- OUTSIDE RECORDS SUMMARY | 2024-10-13 09:34 | XMS_ITS | Clinical Summary ---
Author Organization [facility] Address [address] [facility] [address] [place] [address] Phone Care Team Providers Care Cytology Supervisor Name Role Phone Nash Garcia MD Primary Care Provider [phone] Allergies No known active allergies Medications atorvastatin [...] Due Date Last Done Comments Pneumococcal Vaccine: 50+ Years (1 of 2 - PCV) 1979 Colorectal Cancer Screening: Annual FOBT 08/31/2007 Colorectal Cancer Screening: Colonoscopy 08/31/2007 Colorectal Cancer Screening: Sigmoidoscopy 08/31/2007 Diabetes: Ophthalmology Exam 01/31/2021 Diabetes: Pedal Pulse Checked 01/31/2021 Diabetes: Sensory Foot Exam 01/31/2021 Diabetes: Visual Foot Exam 01/31/2021 Diabetes: Hemoglobin A1C 09/30/202207/01/ 023, 04/01/2022, 03/01/2021 Influenza Vaccine (#1) 2024 Hepatitis B Vaccine Aged Out No longe r eligible based on patient's age to complete this topic Procedures Procedure Name Priority Date/Time Associated Diagnosis Comments HEMOGLOBIN A1C Routine 07/01/2022 10:16 AM EDT from Last 3 Months or Most Recently Relevant to Health Maintenance Results * Hemoglobin A1c (07/01/2022 10:16 AM EDT) Hemoglobin A1C 5.4 (4.0-5.6) % [facility] Comment: MONITORING: In known diabetic patients, hemoglobin A1c targets should be discussed with health care provider. DIAGNOSTIC USE: The [place] Diabetes Association (ADA) and the World Health [...] Supplement 1 Testing performed or reported by [facility], a Service of [facility], [address] [place] [address] Rain Cowan MD, Material Crew Supervisor [facility]# [id number] 07/01/2022 10:1 6 AM EDT 07/01/2022 10:19 AM EDT us Maulik Bass MD LAB BLOOD ORDERABLES Final Resul t [facility] from Last 3 Months or Most Recently Relevant to Health Maintenance Insurance [facility] [place] [address] Care Teams Cytology Supervisor Relationship Specialty Start Date End Date Nash Garcia MD [address] [place], [place] PCP - General Internal Medicine 01/31/21
--- OUTSIDE RECORDS SUMMARY | 2024-10-13 09:34 | XMS_ITS | Patient Health Record ---
Author Organization [facility] Address [address] [place] [address] Care Team Providers Care Point Of Care Specialist Name Role Phone Nash Garcia MD Primary Care Provider John Crouch Unavailable [phone] Allergies No Known Allergies Reason For Referral [...] Indomethacin 50 MG TAKE 1 CAPSULE BY [facility] 3 TIMES A DAY NEEDED FOR GOUT, [...] Problem Screening for malignant neoplasm of colon (388656316) Encounter for screening for malignant neoplasm of colon (Z12.11) Active confirmed Problem Constipation (69887920) Constipation (K59.00) Active confirmed Problem Diverticulosis o f large intestine without perforation or abscess without bleeding (K57.30) Active confirmed Plan Of Treatment Future Test Test Name Order Date COLONOSCOPY 06/27/2011 COLONOSCOPY 01/28/2022 Insurance Providers Payer Name Payer Address Payer Phone Subscriber Number Group Number Insured Name Patient Relationship to Insured Coverage Start Date Coverage End Date [facility] [address] [facility], [place] [phone] [id number] CALLUM LINARES Self - patient is the insured Medical (General) History Medical History History ICD Code Hyperlipidemia HTN Anal fissure-treated medically many year s ago Denies [place],CVA,Lung disease. Renal insufficiency in relat ion to his diabetes and hypertension-he is followed by a scrap drop engineer DM Screening Colonoscopy 08/2011 with only h yperplastic polyps Surgical History Surgery Date(Month/Year) Removal of cyst on back
[2024-10-13 09:52] LABS: Hemoglobin A1C 141.5591 umol/L; Total Hemoglobin (HGBA1C) 3775.5907 umol/L
[2024-10-13 10:32] LABS: Appearance Urine Clear; Glucose Urine UA 250 mg/dL (Negative); PH 5.5 (5.0-9.0); Specific Gravity - Urine 1.020 (1.005-1.025)
[2024-10-13 10:56] LABS: Vitamin B12 279 pg/mL (200-900)
[2024-10-13 10:57] LABS: Alanine Aminotransferase 19 U/L (0-40); Albumin Level 4.1 g/dL (3.5-5.0); Alkaline Phosphatase 60 U/L (39-117); Anion Gap 12 (12-20); Aspartate Amino Transferase 25 U/L (5-37); Blood Urea Nitrogen 14 mg/dL (9-16); Calcium 9.3 mg/dL (8.4-10.2); Carbon Dioxide 26 mmol/L (22-29); Chloride 107 mmol/L (96-108); Cholesterol 159 mg/dL (<200); Estimated Glomerular Filt Rate 57; HDL Cholesterol 46 mg/dL (>40); Potassium 4.2 mmol/L (3.3-5.1); Sodium 141 mmol/L (135-145); Total Protein 7.1 g/dL (6.5-8.0); Triglycerides 87 mg/dL (<150); Uric Acid 5.9 mg/dL (3.4-7.0)
[2024-10-13 11:24] LABS: Folate 8.8 ng/mL (> or = 4.0)
[2024-10-13 11:38] LABS: Microalbum/Creatinine Ratio Ur 13.1 ug/mg cr (<30)
== END 2024-10-13 09:19 | disposition home or self-care (01) ==
LOC: HO.LAB 09:18
PROVIDERS: PCP Internal Medicine; Visit Provider Internal Medicine
DX: E11.22 Type 2 diabetes mellitus with diabetic chronic kidney disease (principal); N18.31 Chronic kidney disease, stage 3a; E53.8 Deficiency of other specified B group vitamins; E78.00 Pure hypercholesterolemia, unspecified; E55.9 Vitamin D deficiency, unspecified; M10.9 Gout, unspecified; R30.0 Dysuria
CPT/HCPCS: 36415; 80053; 80061; 81003; 82043; 82306; 82570; 82607; 82746; 83036; 84443; 84550

== ENCOUNTER 2024-10-14 09:59 | Outpatient (AMB) | payer MEDICARE, OTHER, SELFPAY ==
--- OUTSIDE RECORDS SUMMARY | 2024-10-14 10:10 | XMS_ITS | Patient Health Record ---
Author Organization [facility] Address [address] [place] [address] Care Team Providers Care Heel Cementer Name Role Phone Nash Garcia MD Primary Care Provider John Crouch Unavailable [phone] Allergies No Known Allergies Reason For Referral [...] Indomethacin 50 MG TAKE 1 CAPSULE BY [facility] 3 TIMES A DAY NEEDED FOR [...] Problem Screening for malignant neoplasm of colon (658415634) Encounter for screening for malignant neoplasm of colon (Z12.11) Active confirmed Problem Constipation (88886534) Constipation (K59.00) Active confirmed Problem Diverticular disease of colon (580683770) Diverticulosis of large intestine without perforation or abscess without bleeding (K57.30) Active confirmed Plan Of Treatment Future Test Test Name Order Date COLONOSCOPY 06/27/2011 COLONOSCOPY 01/28/2022 Insurance Providers Payer Name Payer Address Payer Phone Subscriber Number Group Number Insured Name Patient Relationship to Insured Coverage Start Date Coverage End Date [facility] [address] [facility] [phone] [id number] CALLUM LINARES Self - patient is the insured Medical (General) History Medical History History ICD Code Hyperlipidemia HTN Anal fissure-treated medically many year s ago Denies [place],CVA,Lung disease. Renal insufficiency in relat ion to his diabetes and hypertension-he is followed by a sweatband shaper DM Screening Colonoscopy 08/2011 with only h yperplastic polyps Surgical History Surgery Date(Month/Year) Removal of cyst on back
--- OUTSIDE RECORDS SUMMARY | 2024-10-14 10:10 | XMS_ITS | Clinical Summary ---
Author Organization [facility] Address [address] [place] [id number] Phone Care Team Providers Care Property Underwriter Name Role Phone Sarbjit Russell MD Primary Care Provider [phone] Allergies No known active allergies Medications lisinopril (PRINIVIL,ZESTRI L) 40 MG tablet Take 40 mg by mouth daily. Active metoprolol tartrate (LOPRESSOR) 100 MG tablet Take 100 mg by mouth 2 (two) times a day. Active insulin pen needles, disposable, 31 gauge x 5/16 NdleIndications: Type 2 diabetes mellitus with diabetic polyneuropathy, without long-term current use of insulin 1 each by Miscellaneous route once a week. 100 each 1 11/13/19 24 Active allopurinol (ZYLOPRIM) 300 MG tablet Take 1 tablet by mouth every morning. 06/08/19 25 Active semaglutide (OZEMPIC) 1 mg/dose (4 mg/3 mL) subcutaneous injection penIndications:T ype 2 diabetes mellitus with diabetic polyneuropathy, without long-term current use of insulin,Type 2 diabetes mellitus with stage 3a chronic kidney disease, without long-term current use of insulin Inject 1 mg under the skin every 7 days. 9 mL 1 07/27/19 25 Active empagliflozin (JARDIANCE) 10 mg tabletIndication s:Type 2 diabetes mellitus with diabetic polyneuropathy, without long-term current use of insulin,Type 2 diabetes mellitus with stage 3a chronic kidney disease, without long-term current use of insulin Take 1 tablet (10 mg total) by mouth daily. 90 tablet 1 07/27/19 25 Active atorvastatin (LIPITOR) 40 MG tabletIndication s:Hyperlipidemia LDL goal <70 Take 1 tablet (40 mg total) by mouth daily. 90 tablet 1 07/27/19 25 Active Active Problems Problem Noted Date Diagnosed Date Hyperlipidemia LDL goal <70 06/27/2022 Assessment & Plan (07/26/2024 10:15 AM EDT): Fair control his LDL was increasing and technically his LDL should be less than 70 mg now is at 99 he should monitor his diet continue atorvastatin 40 mg for now. Assessment & Plan (11/13/2023 10:02 AM EDT): Uncontrolled. LDL was 81 mg/dL should be less than 70 mg/dL he is on atorvastatin 40. I suppose this may be due to the increased weight gain he has been off Trulicity which helps with decreasing triglycerides and fatty liver. So I am not can make any changes because he is going to be starting Ozempic. He should repeat a lipid panel prior to the follow-up visit. Assessment & Plan (01/15/2023 10:39 AM EDT): Fair control LDL 70 mg/dL continue atorvastatin 40 mg no changes required. Assessment & Plan (06/27/2022 10:33 AM EDT): Controlled. LDL 124 mg/dL. He is using atorvastatin 40 mg. Health care maintenance 03/28/2022 Assessment & Plan (06/27/2022 10:33 AM EDT): I evaluated for multiple myeloma but he does not have monoclonal proteins. No further work-up. Assessment & Plan (03/28/2022 11:29 AM EST): The patient has high normal total protein [...] evaluation of anemia. Type 2 diabetes mellitus wit h diabetic polyneuropathy, without long-term current use of insulin 03/28/2022 Assessment & Plan (07/26/2024 10:15 AM EDT): Hemoglobin A1c is 5.7 he is controlled he should continue current medications and return for follow-up in 6 months. Assessment & Plan (11/13/2023 10:03 AM EDT): Controlled. Hemoglobin A1c 5.8% will add Ozempic 1 mg. Continue Jardiance, metformin. Repeat hemoglobin A1c in 6 months. Assessment & Plan (06/27/2022 10:36 AM EDT): Controlled hemoglobin A1c 5.2% without evidence of hypoglycemia he should continue current regimen. Assessment & Plan (03/28/2022 11:40 AM EST): Controlled based on his last hemoglobin A1c [...] creatinine ratio prior to the follow-up visit. Type 2 diabetes mellitus wit h stage 3a chronic kidney disease, without long-term current use of insulin 03/28/2022 Resolved Problems Problem Noted Date Diagnosed Date Resolved Date Type 2 diabetes mellitus wit h diabetic polyneuropathy, with long-term current use of insulin 06/10/2022 11/13/2023 Assessment & Plan (01/15/2023 10:38 AM EDT): Controlled. Hemoglobin A1c 5.6% continue current regimen. Encounters Date Type Department Care Team Description 07/26/2024 9:50 AM EDT Office Visit [facility] [address] [place] [address] Enrique Dia DO Type 2 diabetes mellitus with diabetic polyneuropathy, without long-term current use of insulin (Primary Dx); Hyperlipidemia LDL goal <70; Type 2 diabetes mellitus with stage 3a chronic kidney disease, without long-term current use of insulin 07/21/2024 8:06 AM EDT - 07/21/2024 11:59 PM EDT Hospital Encounter [facility] [address] [place] [address] Enrique Dia DO Discharge Disposition: Home or Self Care 07/21/2024 Orders Only [facility] [address] [place] [address] Enrique Dia DO Type 2 diabetes mellitus with diabetic polyneuropathy, without long-term current use of insulin (Primary Dx) 07/21/2024 Telephone [facility] [address] [place] [address] Renetta Abarca, [facility] Question from Last 3 Months Family History Medical History Relation Comments Melanoma Father Diabetes Mother Emphysema Mother Relation Status Comments Father Mother Social History Tobacco Use Types Packs/Day Years Used Date Smoking Tobacco: Former Smokeless Tobacco: Never Tobacco Cessation:Counseling Given: Not Answered Alcohol Use Standard Drinks/Week Comments Not Currently 0 (1 standard drink = 0.6 oz pur e alcohol) Education Answer Date Recorded Are you interested in more education? Not on ron e 07/11/2022 Are you concerned about learning? Not on file 07/11/2022 No 07/11/2022 No 07/11/2022 Digital Access Answer Date Recorded No 08/06/2022 No 08/06/2022 Reliable internet access at home? Not on file 08/06/2022 Device with a working camera? Not on file Sex and Gender Information Value Date Recorded Sex Assigned at Not on file Legal Sex Male 11:00 AM EST Gender Identity Not on file Sexual Orientation Not on file Last Filed Vital Signs Vital Sign Reading Time Taken Comments Blood Pressure 130/80 07/26/2024 9:57 AM EDT Pulse 57 11/13/2023 9:38 AM EDT Temperature - - Respiratory Rate - - Oxygen Saturation 98% 11/13/2023 9:38 AM EDT Inhaled Oxygen Concentration - - Weight 133.6 kg (294 lb 9.6 oz) 07/26/2024 9:57 AM EDT Height 180.3 cm (5' 11 ) 07/26/2024 9:57 AM EDT Body Mass Index 41.09 07/26/2024 9:57 AM EDT Plan of Treatment Upcoming Encounters Date Type Department Care Team (Late st Contact Info) Description 01/27/2025 9:50 AM EST Office Visit [facility] [address] [place] [address] Enrique Dia DO [address] [place] [id number] Health Maintenance Due Date Last Done Comments Adult Td,Tdap Booster 1958 DEPRESSION SCREENING 1970 SMOKING Hx and SMOKELESS TOBACCO SCREENING 08/31/1971 HEPATITIS C SCREENING 1976 PNEUMOCOCCAL VACCINES (50+ years) (1 of 2 - PCV) 1977 COLOGUARD 08/31/2003 COLONOSCOPY 08/31/2003 COLORECTAL CANCER SCREENING 08/31/2003 FIT TEST 08/31/2003 FOBT 08/31/2003 SIGMOIDOSCOPY 08/31/2003 VIRTUAL COLONOSCOPY 08/31/2003 ZOSTER VACCINES (1 of 2) 2008 RSV VACCINE (1 - Risk 60-74 years 1-dose series) 2018 DIABETIC EYE EXAM 11/29/2021 ABDOMINAL AORTIC ANEURYSM (AAA) SCREENING 08/31/2023 COVID-19 VACCINE ( season) 2023 12/21/2020, 07/21/2020, 06/28/2020 CREATININE LEVEL 11/05/2024 11/06/2023, 07/2022, 03/22/2022 POTASSIUM LEVEL 11/05/2024 11/06/2023, 12/0 07/2022, 03/22/2022 HEMOGLOBIN A1C 01/21/2025 07/21/2024, 08/2 05/2023, 02/17/2023, Additional history exists BLOOD PRESSURE 01/26/2025 07/26/2024 HEPATITIS A VACCINES Aged Out No long er eligible based on patient's age to complete this topic HIB VACCINES Aged Out No longer eligi ble based on patient's age to complete this topic MENINGOCOCCAL VACCINES (ACWY) Aged Out No longer eligible based on patient's age to complete this topic MENINGOCOCCAL VACCINES (B) Aged Out N o longer eligible based on patient's age to complete this topic Medical Devices Not on file Procedures Procedure Name Priority Date/Time Associated Diagnosis Comments HEMOGLOBIN A1C Routine 07/21/2024 8:40 AM EDT Type 2 diabetes mellitus with diabetic polyneuropathy, without long-term current use of insulin Type 2 diabetes mellitus with stage 3a chronic kidney disease, without long-term current use of insulin LIPID PANEL Routine 07/21/2024 8:40 AM EDT Hyperlipidemia LDL goal <70 COMPREHENSIVE METABOLIC PANEL Routine 11/06/2023 11:18 AM EDT Type 2 diabetes mellitus with diabetic polyneuropathy, without long-term current use of insulin from Last 3 Months or Most Recently Relevant to Health Maintenance Results * Hemoglobin A1c (07/21/2024 8:40 AM EDT) HEMOGLOBIN A1C 5.7 4.3 - 5.8 % [facility] Blood 07/21/2024 8:40 AM EDT 07/21/2024 8:49 AM EDT Enrique Dia DO LAB BLOOD ORDERABLES Final Resul t [facility] [address] [place] [address] * (ABNORMAL) Lipid panel (07/21/2024 8:40 AM EDT) HDL 49 mg/dL [facility] Comment: Interpretation <40 mg/dL: Low HDL cholesterol (major risk factor for CHD) Greater than or equal to 60 mg/dL: High HDL cholesterol ( negative risk factor for CHD) HDL - cholesterol is affected by a number of factors, e.g. smoking, excerise, hormones, sex and age. CHOLESTEROL 163 0 - 240 mg/dL [facility] TRIGLYCERIDES 76 30 - 160 mg/dL [facility] LDL 99 50 - 129 mg/dL [facility] Comment: LDL levels in terms of risk for coronary heart disease: <100 mg/dL: Optimal 100-129 mg/dL: Near or above optimal 130-159 mg/dL: Borderline high 160-189 mg/dL: High >190 mg/dL: Very High CARDIAC RISK RATIO 3.3(L) 3.4 - 5.0 C [facility] Blood 07/21/2024 8:40 AM EDT 07/21/2024 8:49 AM EDT us Enrique Dia DO LAB BLOOD ORDERABLES Final Resul t [facility] [address] [place] [address] * (ABNORMAL) Comprehensive metabolic panel (11/06/2023 11:18 AM EDT) SODIUM 139 133 - 146 mmol/L [facility] POTASSIUM 4.3 3.3 - 5.1 mmol/L [facility] CHLORIDE 103 96 - 108 mmol/L [facility] CO2 25 21 - 35 mmol/L [facility] BUN 17 6 - 19 mg/dL [facility] CREATININE 1.20 0.5 - 1.5 mg/dL [facility] GLUCOSE 93 70 - 99 mg/dL [facility] ALBUMIN 3.8(L) 3.9 - 4.8 g/dL [facility] TOTAL PROTEIN 7.0 6.5 - 8.0 g/dL [facility] CALCIUM 9.3 8.4 - 10.3 mg/dL [facility] ALKALINE PHOSPHATASE 76 39 - 117 U/L [facility] TOTAL BILIRUBIN 0.6 0.0 - 1.2 mg/dL [facility] AST 17 0 - 37 U/L [facility] ALT 16 0 - 40 U/L [facility] GLOBULIN 3.2 1 - 4.8 g/dL [facility] EGFR 67 >59 mL/min/1.7 3m2 [facility] Comment:Estimated glomerular filtration rate calculated using the CKD-EPI refit equation. ANION GAP 15 10 - 20 mmol/L [facility] Blood 11/06/2023 11:1 8 AM EDT 11/06/2023 11:24 AM EDT us Enrique Dia DO LAB BLOOD ORDERABLES Final Resul t [facility] [address] [place] [address] from Last 3 Months or Most Recently Relevant to Health Maintenance Insurance MEDICARE PART A & B [facility] MEDICARE SUPPLEMENT MEDICARE PART A & B [facility] MEDICARE SUPPLEMENT [facility] [place] MED[place] SUPPLEMENT [facility] [place] MED[place] SUPPLE[place] MEDICARE PART A & B [facility] MEDICARE SUPPLEMENT [facility] [place] MEDICARE SUPPLEMENT MEDICARE PART A & [place] [id number] MEDICARE PART A & [place] [id number] MEDICARE PART A & B [facility] [place] MEDIC[employer] SUPPLEMENT Care Teams Property Underwriter Relationship Specialty Start Date End Date Sarbjit Russell MD [address] [place] [address] [facility] [address] [place] [address] PCP - General Internal Medicine 07/26/24 Additional Source Comments The information contained in this document represents components of the legal health record. It is not the complete legal health record.[facility]
--- OUTSIDE RECORDS SUMMARY | 2024-10-14 10:10 | XMS_ITS | Clinical Summary ---
Author Organization [facility] Address [address] [facility] [address] [place] [address] Phone Care Team Providers Care Data Support Analyst Name Role Phone Nash [place] MD Primary Care Provider [phone] Allergies No known active allergies Medications atorvastatin [...] AM EDT) Hemoglobin A1C 5.4 (4.0-5.6) % [facility] Comment: MONITORING: In known diabetic patients, hemoglobin A1c targets should be discussed with health care provider. DIAGNOSTIC USE: The [employer] (ADA) and the World Health [...] Supplement 1 Testing performed or reported by [facility], a Service of [facility], [address] [place] [address] Rain Cowan MD, Business Banking Relationship Manager [facility]# [id number] 07/01/2022 10:1 6 AM EDT 07/01/2022 10:19 AM EDT us Maulik Bass MD LAB BLOOD ORDERABLES Final Resul t [facility] from Last 3 Months or Most Recently Relevant to Health Maintenance Insurance [facility] [address] [place] [address] Care Teams Data Support Analyst Relationship Specialty Start Date End Date Nash [place] MD [id number] [place], [place] PCP - General Internal Medicine 01/31/21
[2024-10-14 10:15] VITALS: BP 142/100; PULSE 80; O2SAT 97; BMI 40.5
--- NOTE | 2024-10-14 10:15 | MHC.PC.OV ---
Vital Signs 10/14/24 10:15 10/14/24 11:05 Height 5 ft 11 in Weight 290 lb 4 oz BMI 40.5 BP 142/100 H 150/100 H Blood Pressure Location Lt brachial Lt brachial Position Sitting Sitting Pulse 80 Pulse Source Pulse Oximeter Pulse Oximetry (%) 97 Oxygen Delivery Method Room Air Comment patient has NOT YET taken his BP meds this morning Intake Visit Reasons: 4 Month F/U BEN Garcia Information Systems Security Officer Required: No Accompanied by: Self / Same As Patient Allergies No Known Allergies Allergy (Verified 10/14/24 11:03) Medication List - Last Reconciled 10/14/24 by Sarbjit Russell MD allopurinol 300 mg PO DAILY atorvastatin 40 mg PO DAILY blood sugar diagnostic (Accu-Chek Guide test strips) As directed one time a day blood-glucose meter (Accu-Chek Guide Me Glucose Meter) As directed empagliflozin (Jardiance) 10 mg PO DAILY indomethacin 25 mg PO TID PRN lansoprazole 30 mg PO DAILY lisinopril 40 mg PO DAILY metoprolol tartrate 100 mg PO BID semaglutide (Ozempic) 1 mg subcut QWEEK Tobacco use date assessed: 10/14/24 Fall risk assessment: No Falls in past year Last assessed Fall Risk: 10/14/24 Dental Screening Dental Screen Date: 10/14/24 Did you have a dental visit in the last 12 months?: Yes Did you have a dental problem in the last 6 months where you did not have access to dental care?: No Was dental information given to patient?: Patient has dentist HPI 4 Month F/U BEN Garcia HPI Details Patient comes in today for his follow up visit - he is transferring over from Dr. Garcia, who retired from the practice a few months ago Patient states that he feels well He denies any headaches or dizziness Denies any chest pains, no increased SOB No nausea/vomiting, no abdominal pain No change in bowel habits noted He had his follow up labs done yesterday - to discuss his results [facility] Medical History Morbid obesity with BMI of 40.0-44.9, adult GERD without esophagitis Chronic kidney disease, stage III (moderate) Essential hypertension CKD (chronic kidney disease) stage 2, GFR 60-89 ml/min Leukocytosis Acute kidney injury Kidney disease Type 2 diabetes mellitus with obesity Type 2 diabetes mellitus with chronic kidney disease Diabetes mellitus with coincident hypertension Type 2 diabetes mellitus with diabetic polyneuropathy HTN (hypertension) Obesity due to excess calories Hyperlipidemia Diabetes type 2, uncontrolled Diabetes mellitus Surgical History History of colonoscopy Hx of tooth extraction Family History Mother Diabetes Father No problems noted. Social History Household Members: None Housing: House Alcohol intake: never Patient Tobacco Use Status: Former Tobacco user Tobacco use type: Cigarette e-Cigarette/Vaping Use: Never Used Second Hand Smoke Exposure: No Substance Use Type: Former Substance User and Marijuana service: No Current occupational status: employed Cognitive needs: No Hearing needs: No Vision needs: No Questionnaire PHQ-9 Over the last 2 weeks, how often have you been bothered by any of the following problems? 1. Little interest or pleasure in doing things: not at all 2. Feeling down, depressed, or hopeless: not at all 3. Trouble falling or staying asleep, or sleeping too much: not at all 4. Feeling tired or having little energy: not at all 5. Poor appetite or overeating: not at all 6. Feeling bad about yourself - or that you are a failure or have let yourself or your family down: not at all 7. Trouble concentrating on things, such as reading the newspaper or watching television: not at all 8. Moving or speaking so slowly that other people could have noticed. Or the opposite - being so fidgety or restless that you have been moving around a lot more than usual: not at all 9. Thoughts that you would be better off or of hurting yourself in some way: not at all Total score: 0 Depression Screening Interpretation: Negative Depression Screening Done: Yes 33310 - PHQ-9 Billing: Yes Source: Developed by Drs. John Yan, Cherrie Peralta, Christopher Burt and colleagues, with an educational ney from [employer]. Thrive Questionnaire Date Thrive assessed: 10/14/24 I am a: Patient What is your living situation today?: I have a steady place to live Within the past 12 months, did the food you bought not last and you didn't have the money to get more?: Never true Within the past 12 months, did you worry whether your food would run out before you got money to buy more?: Never true Do you have trouble paying for medicines?: No Do you have trouble getting transportation to medical appointments?: No Do you have trouble paying your heating and electricity bill?: No Do you have trouble taking care of your child, family member or friend?: No Do you have trouble with day-to-day activities such as bathing, preparing meals, shopping, managing finances, etc.?: No Are you currently unemployed and looking for a job?: No Are you interested in more education?: No Please select the resources that you would like help with: None Currently or been in a relationship where the following occur: I choose not to answer THRIVE Score: 0 AUDIT C Alcohol Use Questionnaire (AUDIT-C) 1. How often do you have a drink containing alcohol?: Never 3. How often do you have six or more drinks on one occasion?: Never Total Score: 0 Score Reviewed/Action Taken: Yes SMOOTH-7 AMB Questionnaire SMOOTH-7 Date SMOOTH - 7 assessed: 10/14/24 Feeling nervous, anxious, or on edge: 0 = Not at all Not being able to stop or control worryin = Not at all Worrying too much about different things: 0 = Not at all Trouble relaxin = Not at all Being so restless that it is hard to sit still: 0 = Not at all Becoming easily annoyed or irritable: 0 = Not at all Feeling afraid as if something awful might happen: 0 = Not at all Total SMOOTH-7 score (0-4 normal; 5-9 mild; 10-14 moderate; 15-21 severe): 0 Source: Developed by Drs. John Yan, Cherrie Peralta, Christopher Burt and colleagues, with an educational ney from [employer]. Review of Systems Const Denies chills, Denies fatigue, Denies fever(s) and Denies headache(s) ENT Denies dysphagia, Denies dizziness, Denies otalgia, Denies headache(s), Denies neck pain, Denies odynophagia and Denies sore throat Card Denies chest pain, Denies palpitations and Denies dyspnea Resp Denies chest congestion, Denies cough and Denies dyspnea GI Denies abdominal pain, Denies constipation, Denies dysphagia, Denies heartburn, Denies diarrhea, Denies nausea, Denies odynophagia and Denies vomiting Denies difficulty urinating, Denies dysuria, Denies nocturia and Denies urinary frequency Musc Denies back pain and Denies neck pain Skin/Breast Denies rash Neuro Denies dizziness and Denies headache(s) Psych Denies anxiety Endo Denies fatigue and Denies palpitations Physical exam (Primary Care) Vital Signs: Last Vital Signs Pulse 80 10/14/24 10:15 BP 142/100 H 10/14/24 10:15 Pulse Ox 97 10/14/24 10:15 Oxygen Delivery Method Room Air 10/14/24 10:15 BMI result Body Mass Index 40.5 Tobacco/Smoking Status: Tobacco use Status Tobacco use date assessed 10/14/24 10/14/24 10:26 Patient Tobacco Use Status Former Tobacco user 10/14/24 10:26 Tobacco use type Cigarette 10/14/24 10:26 e-Cigarette/Vaping Use Never Used 10/14/24 10:26 PHQ-9: PHQ-9 Score PHQ-9: Total score 0 10/14/24 10:26 Depression Screening Interpretation: Negative Thrive Assessment: Date of Thrive Assessment Date Thrive assessed 10/14/24 10/14/24 10:26 Currently or been in a relationship where the following occur: I choose not to answer Const General: no acute distress and alert HENMT Ears: TM's normal bilaterally and EAC's normal Throat: Yes posterior oropharynx normal and Yes tonsils normal (no TP congestion) Neck Neck: Yes supple and No lymphadenopathy Thyroid: Thyroid normal Resp Auscultation: clear to auscultation bilaterally, no rales and no wheezes Cardio Rate: regular rate Rhythm: regular rhythm Heart sounds: no murmurs GI Palpation (GI): Soft to palpation and nontender Auscultation: normal bowel sounds General: Yes no CVA tenderness Back/Spine/Pelvis Back: no CVA tenderness Thoracic/Lumbar Spine: No lumbar spinal tenderness Skin Rashes: no rashes Extrem General: Yes no clubbing, cyanosis or edema Results Reviewed Results Reviewed: Laboratory Tests 10/13/24 10/13/24 09:30 09:34 Sodium 141 Potassium 4.2 Creatinine 1.26 Estimated GFR 57 Fasting Glucose 101 H Hemoglobin A1c % 5.6 Uric Acid 5.9 Calcium 9.3 AST 25 ALT 19 Triglycerides 87 Cholesterol 159 LDL Cholesterol, Calc 96 HDL Cholesterol 46 Vitamin B12 279 25-OH Vitamin D Total 33.0 TSH 1.32 Ur Specific [place] 1.020 Urine Protein Trace Urine Glucose (UA) 250 H Urine Blood Negative Urine Nitrite Negative Ur Leukocyte Esterase Negative Microalb/Creat Ratio 13.1 Coding Level of Care Code Est Pt Level 4 (56925) Diagnoses Essential hypertension I10 Type 2 diabetes mellitus with diabetic polyneuropathy, without long-term current use of insulin E11.42 Diabetes mellitus type: type 2 Diabetes mellitus after school caregiver insulin use: without senior living use Diabetes mellitus complication status: with neurologic complications Diabetes mellitus complication detail: with polyneuropathy Pure hypercholesterolemia E78.00 Hyperlipidemia type: pure hypercholesterolemia Stage 3a chronic kidney disease N18.31 Chronic kidney disease stage 3 subtype: stage 3a (GFR 45-59) Chronic gout without tophus, unspecified cause, unspecified site [id number].[id number] Gout site: unspecified site Gout etiology: unspecified cause Chronicity: chronic Presence of tophus: without tophus GERD without esophagitis K21.9 Morbid obesity with BMI of 40.0-44.9, adult E66.01; Z68.41 Additional Codes PHQ-9 - 32592 - PHQ-9 Billing: Yes ([id number]) Assessment & Plan Assessment & Plan (1) Essential hypertension: Code(s): I10 - Essential (primary) hypertension Category: Medical Plan: Reinforced low sodium diet - goal is systolic BP of 120 mm or less Have advised patient that his blood pressure is higher than recommended today - states that he was not able to take his BP meds before coming in for his appointment this morning He will be seeing nephrology for follow up in a couple of weeks and will have them recheck it again at his upcoming appointment Continue Lisinopril 40 mg QD and Metoprolol 100 mg BID He is reminded to continue monitoring his blood pressure regularly (2) Diabetes mellitus: Code(s): E11.9 - Type 2 diabetes mellitus without complications Category: Medical Qualifiers: Diabetes mellitus type: type 2 Diabetes mellitus after school caregiver insulin use: without senior living use Diabetes mellitus complication status: with neurologic complications Diabetes mellitus complication detail: with polyneuropathy Qualified Code(s): E11.42 - Type 2 diabetes mellitus with diabetic polyneuropathy Plan: His HgbA1c was at 5.6% on his labs done yesterday (it was at previously at 5.9% when it was last checked in January 2024) - goal is ideally <6.5% Reinforced diabetic diet Continue Jardiance 10 mg QD and Semaglutide 1 mg SQ once a week (3) Hyperlipidemia: Code(s): E78.5 - Hyperlipidemia, unspecified Category: Medical Qualifiers: Hyperlipidemia type: pure hypercholesterolemia Qualified Code(s): E78.00 - Pure hypercholesterolemia, unspecified Plan: Results of his labs done yesterday reviewed and discussed with patient Reinforced low cholesterol diet Continue Atorvastatin 40 mg QD Will recheck his labs and fasting lipids in 4 months for follow up (4) Chronic kidney disease, stage III (moderate): Code(s): N18.30 - Chronic kidney disease, stage 3 unspecified Category: Medical Qualifiers: Chronic kidney disease stage 3 subtype: stage 3a (GFR 45-59) Qualified Code(s): N18.31 - Chronic kidney disease, stage 3a Plan: His renal function appears stable on his recent labs Reinforced that excellent control of his blood pressure and blood sugar is what will help preserve his renal function for as long as possible Will continue to monitor his renal function regularly (5) Gout: Code(s): M10.9 - Gout, unspecified Category: Medical Qualifiers: Gout site: unspecified site Gout etiology: unspecified cause Chronicity: chronic Presence of tophus: without tophus Qualified Code(s): M1A.9XX0 - Chronic gout, unspecified, without tophus (tophi) Plan: His serum uric acid was normal at 5.9 on his labs done yesterday Reinforced low purine diet Continue Allopurinol 300 mg QD and Indomethacin 25 mg TID PRN (6) GERD without esophagitis: Code(s): K21.9 - Gastro-esophageal reflux disease without esophagitis Category: Medical Plan: Dietary restrictions reinforced Continue Lansoprazole 30 mg QD (7) Morbid obesity with BMI of 40.0-44.9, adult: Code(s): E66.01 - Morbid (severe) obesity due to excess calories; Z68.41 - Body mass index [BMI] 40.0-44.9, adult Category: Medical Plan: Reinforced diet/exercise as tolerated/lose weight Plan Follow up in 4 months Orders: Orders Complete Blood Count Auto Diff 4 Months D64.9 - Anemia, unspecified Lipid Panel 4 Months E78.00 - Pure hypercholesterolemia, unspecified Microalbumin, Random (w Creat) 4 Months E11.9 - Type 2 diabetes mellitus without complications TSH reflex Free T4 4 Months E78.00 - Pure hypercholesterolemia, unspecified UA CC w/rflx Micro + Cult 4 Months R30.0 - Dysuria Comprehensive [place]. Panel Fast 4 Months E78.00 - Pure hypercholesterolemia, unspecified Hemoglobin A1c 4 Months E11.9 - Type 2 diabetes mellitus without complications Uric Acid 4 Months M10.9 - Gout, unspecified Vitamin D 25-OH Total 4 Months E55.9 - Vitamin D deficiency, unspecified Vitamin B12 and Folate 4 Months E53.8 - Deficiency of other specified B group vitamins
[2024-10-14 11:05] VITALS: BP 150/100
== END 2024-10-14 11:10 | disposition home or self-care (01) ==
LOC: HO.HMCH 10:00
PROVIDERS: PCP Internal Medicine; Visit Provider Internal Medicine
DX: I12.9 Hypertensive chronic kidney disease with stage 1 through stage 4 chronic kidney disease, or unspecified chronic kidney disease (principal); E11.42 Type 2 diabetes mellitus with diabetic polyneuropathy; E66.01 Morbid (severe) obesity due to excess calories; Z68.41 Body mass index [BMI] 40.0-44.9, adult; N18.31 Chronic kidney disease, stage 3a; E78.00 Pure hypercholesterolemia, unspecified; M1A.9XX0 Chronic gout, unspecified, without tophus (tophi); K21.9 Gastro-esophageal reflux disease without esophagitis

== ENCOUNTER → 2024-10-14 09:59 | Outpatient (BNVA) | payer MEDICARE, OTHER, SELFPAY | PROVIDERS: PCP Internal Medicine; Visit Provider Internal Medicine | DX: E11.42 Type 2 diabetes mellitus with diabetic polyneuropathy (principal); E78.00 Pure hypercholesterolemia, unspecified; I12.9 Hypertensive chronic kidney disease with stage 1 through stage 4 chronic kidney disease, or unspecified chronic kidney disease; E11.22 Type 2 diabetes mellitus with diabetic chronic kidney disease; N18.31 Chronic kidney disease, stage 3a; K21.9 Gastro-esophageal reflux disease without esophagitis; E66.01 Morbid (severe) obesity due to excess calories; Z68.41 Body mass index [BMI] 40.0-44.9, adult; Z71.3 Dietary counseling and surveillance | CPT/HCPCS: 96127; 99212 ==

== ENCOUNTER 2024-11-03 08:24 | Outpatient (REF) | payer MEDICARE, OTHER, SELFPAY ==
--- OUTSIDE RECORDS SUMMARY | 2024-11-03 09:15 | XMS_ITS | Clinical Summary ---
Author Organization [facility] Address [address] [place] [address] Phone Care Team Providers Care Caretaker Name Role Phone Sarbjit Russell MD Primary Care Provider [phone] Allergies No known active allergies Medications lisinopril [...] Controlled. Hemoglobin A1c 5.6% continue current regimen. Family History Medical History Relation Comments Melanoma [...] 9:50 AM EST Office Visit [facility] [address] [place] [id number] Enrique Dia DO [address] [place] [id number] Health Maintenance Due Date Last Done Comments [...] 12/0 07/2022, 03/22/2022 HEMOGLOBIN A1C 01/21/2025 07/21/2024, 082 05/2023, 02/17/2023, Additional history exists BLOOD PRESSURE [...] disease, without long-term current use of insulin COMPREHENSIVE METABOLIC PANEL Routine 11/06/2023 11:18 AM EDT Type 2 diabetes mellitus with diabetic polyneuropathy, without long-term current use of insulin from Last 3 Months or Most Recently Relevant to Health Maintenance Results * Hemoglobin A1c (07/21/2024 8:40 AM EDT) HEMOGLOBIN A1C 5.7 4.3 - 5.8 % [facility] Blood 07/21/2024 8:40 AM EDT 07/21/2024 8:49 AM EDT us Enrique Dia LAB BLOOD ORDERABLES Final Resul t Performing Organization Address City/[facility]/ZIP Co de Phone Number [address] [address] * (ABNORMAL) Comprehensive metabolic panel (11/06/2023 11:18 AM EDT) SODIUM 139 133 - 146 mmol/L [facility] POTASSIUM 4.3 3.3 - 5.1 mmol/L [facility] CHLORIDE 103 96 - 108 mmol/L [facility] CO2 25 21 - 35 mmol/L [facility] BUN 17 6 - 19 mg/dL [facility] CREATININE 1.20 0.5 - 1.5 mg/dL [facility] GLUCOSE 93 70 - 99 mg/dL [facility] ALBUMIN 3.8(L) 3.9 - 4.8 g/dL [facility] TOTAL PROTEIN 7.0 6.5 - 8.0 g/dL [facility] CALCIUM 9.3 8.4 - 10.3 mg/dL [facility] ALKALINE PHOSPHATASE 76 39 - 117 U/L [facility] TOTAL BILIRUBIN 0.6 0.0 - 1.2 mg/dL [facility] AST 17 0 - 37 U/L [facility] ALT 16 0 - 40 U/L [facility] GLOBULIN 3.2 1 - 4.8 g/dL [facility] EGFR 67 >59 mL/min/1.7 3m2 [facility] Comment:Estimated glomerular filtration rate calculated using the CKD-EPI refit equation. ANION GAP 15 10 - 20 mmol/L [facility] Blood 11/06/2023 11:1 8 AM EDT 11/06/2023 11:24 AM EDT Enrique Dia LAB BLOOD ORDERABLES Final Resul t Performing Organization Address City/[facility]/ZIP Co de Phone Number [address] [address] from Last 3 Months or Most Recently Relevant to Health Maintenance Insurance MEDICARE PART A & B MEDICARE SUPPLEMENT MEDICARE PART A & [place] [id number] MEDICARE SUPPLEMENT [facility] MEDICARE SUPPLEMENT [facility] [place] MEDICARE SUPPLEMENT MEDICARE PART A & B [facility] MEDICARE SUPPLEMENT [facility] MEDICARE SUPPLEMENT MEDICARE PART A & B [facility] MEDICARE SUPPLEMENT MEDICARE PART A & B MEDICARE SUPPLEMENT MEDICARE PART A & B Member Subscriber Plan / Payer (Ef fective 2023-) Name:Bobby Vásquez Member ID:[id number] Relation to Subscriber:Self Name:Bobby Vásquez Subscriber ID:[id number] Payer ID:[id number] Group ID:Not on file Type:Medicare Address: Clifford Thames [address] MEDICARE SUPPLEMENT Care Teams Caretaker Relationship Specialty Start Date End Date Sarbjit Russell MD [address] [place] [address] [address] [place] [address] PCP - General Internal Medicine 07/26/24 Additional Source Comments The information contained in this document represents components of the legal health record. It is not the complete legal health record.[facility]
--- OUTSIDE RECORDS SUMMARY | 2024-11-03 09:15 | XMS_ITS | Clinical Summary ---
Author Organization [facility] Address [address] [facility] [address] [place] [address] Phone Care Team Providers Care Applied Research Director Name Role Phone Nash Garcia MD Primary Care Provider Allergies No known active allergies Medications atorvastatin [...] AM EDT) Hemoglobin A1C 5.4 (4.0-5.6) % [facility] Comment: MONITORING: In known diabetic patients, hemoglobin A1c targets should be discussed with health care provider. DIAGNOSTIC USE: The [place] Diabetes Association (ADA) and the World Health [...] Supplement 1 Testing performed or reported by [facility], a Service of [facility], [address] [place] [address] Rain Cowan MD, Platform Loader [facility]# [id number] 07/01/2022 10:1 6 AM EDT 07/01/2022 10:19 AM EDT us Maulik Bass MD LAB BLOOD ORDERABLES Final Resul t [facility] from Last 3 Months or Most Recently Relevant to Health Maintenance Insurance [facility] [place] [address] Care Teams Applied Research Director Relationship Specialty Start Date End Date Nash Garcia MD [address] [place], [place] PCP - General Internal Medicine 01/31/21
--- OUTSIDE RECORDS SUMMARY | 2024-11-03 09:15 | XMS_ITS | Patient Health Record ---
Author Organization [facility] Address [address] [place] [address] Care Team Providers Care Biodiesel Technology Manager Name Role Phone Nash Garcia MD Primary Care Provider John Crouch Unavailable [phone] Allergies No Known Allergies Reason For Referral [...] Indomethacin 50 MG TAKE 1 CAPSULE BY [facility] 3 TIMES A DAY NEEDED FOR [...] Problem Screening for malignant neoplasm of colon (071430101) Encounter for screening for malignant neoplasm of colon (Z12.11) Active confirmed Problem Constipation (08548209) Constipation (K59.00) Active confirmed Problem Diverticular disease of colon (861756894) Diverticulosis of large intestine without perforation or abscess without bleeding (K57.30) Active confirmed Plan Of Treatment Future Test Test Name Order Date COLONOSCOPY 06/27/2011 COLONOSCOPY 01/28/2022 Insurance Providers Payer Name Payer Address Payer Phone Subscriber Number Group Number Insured Name Patient Relationship to Insured Coverage Start Date Coverage End Date [facility] [address] [facility] [phone] [id number] CALLUM LINARES Self - patient is the insured Medical (General) History Medical History History ICD Code Hyperlipidemia HTN Anal fissure-treated medically many year s ago Denies [place],CVA,Lung disease. Renal insufficiency in relat ion to his diabetes and hypertension-he is followed by a burglar alarm installer DM Screening Colonoscopy 08/2011 with only h yperplastic polyps Surgical History Surgery Date(Month/Year) Removal of cyst on back
[2024-11-03 10:28] LABS: Anion Gap 13 (12-20); Blood Urea Nitrogen 16 mg/dL (9-16); Carbon Dioxide 25 mmol/L (22-29); Chloride 108 mmol/L (96-108); Estimated Glomerular Filt Rate 59; Potassium 4.3 mmol/L (3.3-5.1); Sodium 142 mmol/L (135-145)
== END 2024-11-03 08:25 | disposition home or self-care (01) ==
LOC: HO.LAB 08:24
PROVIDERS: PCP Internal Medicine; Visit Provider Internal Medicine Nephrology
DX: N18.31 Chronic kidney disease, stage 3a (principal)
CPT/HCPCS: 36415; 80051; 82565; 84520

== ENCOUNTER 2024-11-07 10:02 | Outpatient (AMB) | payer MEDICARE, OTHER, SELFPAY ==
--- NOTE | 2024-11-07 10:07 | HO.NEPHOV_ITS ---
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 He has diabetic hypertensive renal disease. His blood sugar control is very good now. His blood pressure has been at goal. He has been tolerating Jardiance as well as lisinopril. He has no hypotension or hypoglycemias. He has no pedal edema. His urine output is good. He had no recent exacerbation of gout. He denies any chest pain, shortness of breath, proximal nocturnal dyspnea, orthopnea or urinary symptoms. He feels well except for tiredness PFSH Medical History Morbid obesity with BMI of 40.0-44.9, adult GERD without esophagitis Chronic kidney disease, stage III (moderate) Essential hypertension CKD (chronic kidney disease) stage 2, GFR 60-89 ml/min Leukocytosis Acute kidney injury Kidney disease Type 2 diabetes mellitus with obesity Type 2 diabetes mellitus with chronic kidney disease Diabetes mellitus with coincident hypertension Type 2 diabetes mellitus with diabetic polyneuropathy HTN (hypertension) Obesity due to excess calories Hyperlipidemia Diabetes type 2, uncontrolled Diabetes mellitus Surgical History History of colonoscopy Hx of tooth extraction Family History Mother Diabetes Father No problems noted. Social History Household Members: None Housing: House Alcohol intake: never Patient Tobacco Use Status: Former Tobacco user Tobacco use type: Cigarette e-Cigarette/Vaping Use: Never Used Second Hand Smoke Exposure: No Substance Use Type: Former Substance User and Marijuana service: No Current occupational status: employed Cognitive needs: No Hearing needs: No Vision needs: No Review of Systems Const All systems reviewed & are unremarkable except as noted in HPI and below Physical Exam Const General: comfortable and no acute distress Orientation/consciousness: patient oriented x3 HEENT Head: Yes normocephalic Mouth: Normal oral and palatal mucosa present Eyes EOM: EOMs intact bilaterally Neck Neck: Yes supple Resp Auscultation: clear to auscultation bilaterally Cardio Jugular venous distension: no JVD Rate: regular rate GI Palpation (GI): Soft to palpation Auscultation: normal bowel sounds General: Yes no CVA tenderness Back/Spine/Pelvis Back: no CVA tenderness Skin General skin exam: no rashes or lesions noted Neuro General: patient oriented x3 and moves all extremities Extrem General: Yes no pedal edema Results Reviewed Nephrology Results: Sodium, (135-145) 142 mmol/L 11/03/24 Potassium, (3.3-5.1) 4.3 mmol/L 11/03/24 Chloride, (96-108) 108 mmol/L 11/03/24 Carbon Dioxide, (22-29) 25 mmol/L 11/03/24 BUN, (9-16) 16 mg/dL 11/03/24 Creatinine, (0.5-1.4) 1.22 mg/dL 11/03/24 Calcium, (8.4-10.2) 9.3 mg/dL 10/13/24 Urine Protein, (Neg-Trace) Trace mg/dL 10/13/24 Urine Creatinine 197.92 mg/dL 10/13/24 Protein/Creatinin Ratio, (<0.2) 0.09 03/18/24 Renal US 05/30/21 Assessment & Plan Assessment & Plan (1) HTN (hypertension): Code(s): I10 - Essential (primary) hypertension Category: Medical Qualifiers: Hypertension type: essential hypertension Qualified Code(s): I10 - Essential (primary) hypertension (2) CKD stage 3a, GFR 45-59 ml/min: Code(s): N18.31 - Chronic kidney disease, stage 3a Category: Medical Plan Bobby has a diabetic hypertensive renal disease. His hemoglobin A1c has been good. His urine output is good. Has no prostatic symptoms. He has no edema, hypoglycemia or hypotension. He is tolerating Jardiance as well as KEI- inhibitor. He needs to loose more weight. He was counseled to avoid nonsteroidal anti-inflammatory medications even during gout exacerbations. He should maintai n good hydration. He can continue current dose of allopurinol. He needs to keep his BP at goal( may need more medications). I did not make any other medication changes today. Follow-up blood work ordered. All questions answered. Follow- up given. Orders: Orders Electrolytes 6 Months I10 - Essential (primary) hypertension, N18.31 - Chronic kidney disease, stage 3a Calcium 6 Months I10 - Essential (primary) hypertension, N18.31 - Chronic kidney disease, stage 3a Blood Urea Nitrogen 6 Months I10 - Essential (primary) hypertension, N18.31 - Chronic kidney disease, stage 3a Creatinine 6 Months I10 - Essential (primary) hypertension, N18.31 - Chronic kidney disease, stage 3a Vitamin D 25-OH Total 6 Months I10 - Essential (primary) hypertension, N18.31 - Chronic kidney disease, stage 3a Uric Acid 6 Months I10 - Essential (primary) hypertension, N18.31 - Chronic kidney disease, stage 3a Phosphorus 6 Months I10 - Essential (primary) hypertension, N18.31 - Chronic kidney disease, stage 3a Coding Level of Care Code Est Pt Level 4 (88462) Diagnoses Essential hypertension I10 Hypertension type: essential hypertension CKD stage 3a, GFR 45-59 ml/min N18.31
[2024-11-07 10:08] VITALS: BP 140/80; PULSE 80; O2SAT 97; BMI 40.3
--- OUTSIDE RECORDS SUMMARY | 2024-11-07 11:04 | XMS_ITS | Clinical Summary ---
Author Organization [facility] Address [address] [facility] [address] [place] [address] Phone Care Team Providers Care Licensed Reactor Operator Name Role Phone Nash Garcia MD Primary Care Provider [phone] Allergies No known active allergies Medications atorvastatin [...] AM EDT) Hemoglobin A1C 5.4 (4.0-5.6) % [facility] Comment: MONITORING: In known diabetic patients, hemoglobin A1c targets should be discussed with health care provider. DIAGNOSTIC USE: The [place] Diabetes Association (ADA) and the World Health [...] Supplement 1 Testing performed or reported by [facility], a Service of [facility], [address] [place] [address] Rain Cowan MD, Printer Assistant [facility]# [id number] 07/01/2022 10:1 6 AM EDT 07/01/2022 10:19 AM EDT us Maulik Bass MD LAB BLOOD ORDERABLES Final Resul t [facility] from Last 3 Months or Most Recently Relevant to Health Maintenance Insurance [facility] [place] [address] Care Teams Licensed Reactor Operator Relationship Specialty Start Date End Date Nash Garcia MD [id number] [place], [place] PCP - General Internal Medicine 01/31/21
--- OUTSIDE RECORDS SUMMARY | 2024-11-07 11:04 | XMS_ITS | Clinical Summary ---
Author Organization [facility] Address [address] [place] [address] Phone Care Team Providers Care Kosher Dietary Service Manager Name Role Phone Sarbjit Russell MD Primary Care Provider [phone] Allergies No known active allergies Medications lisinopril [...] 9:50 AM EST Office Visit [facility] [address] [place] [phone] Enrique Dia DO [address] [place] [id number] Health Maintenance Due Date Last Done Comments [...] HEMOGLOBIN A1C 5.7 4.3 - 5.8 % [facility] Blood 07/21/2024 8:40 AM EDT 07/21/2024 8:49 AM EDT us Enrique Dia LAB BLOOD ORDERABLES Final Resul t Performing Organization Address City/[facility] [address]/ZIP Co de Phone Number [address] [address] * (ABNORMAL) Comprehensive metabolic panel (11/06/2023 11:18 AM EDT) SODIUM 139 133 - 146 mmol/L [facility] POTASSIUM 4.3 3.3 - 5.1 mmol/L [facility] CHLORIDE 103 96 - 108 mmol/L [facility] CO2 25 21 - 35 mmol/L [facility] BUN 17 6 - 19 mg/dL [facility] CREATININE 1.20 0.5 - 1.5 mg/dL [facility] GLUCOSE 93 70 - 99 mg/dL [facility] ALBUMIN 3.8(L) 3.9 - 4.8 g/dL [facility] TOTAL PROTEIN 7.0 6.5 - 8.0 g/dL [facility] CALCIUM 9.3 8.4 - 10.3 mg/dL [facility] ALKALINE PHOSPHATASE 76 39 - 117 U/L [facility] TOTAL BILIRUBIN 0.6 0.0 - 1.2 mg/dL [facility] AST 17 0 - 37 U/L [facility] ALT 16 0 - 40 U/L [facility] GLOBULIN 3.2 1 - 4.8 g/dL [facility] EGFR 67 >59 mL/min/1.7 3m2 [facility] Comment:Estimated glomerular filtration rate calculated using the CKD-EPI refit equation. ANION GAP 15 10 - 20 mmol/L [facility] Blood 11/06/2023 11:1 8 AM EDT 11/06/2023 11:24 AM EDT Enrique Dia LAB BLOOD ORDERABLES Final Resul t Performing Organization Address City/[facility] [address]/ZIP Co de Phone Number [address] [address] from Last 3 Months or Most Recently Relevant to Health Maintenance Insurance MEDICARE PART A & B MEDICARE SUPPLEMENT MEDICARE PART A & [place] [address] [address] [address] MEDICARE SUPPLEMENT [facility] MEDICARE SUPPLEMENT [facility] MEDICARE SUPPLEMENT MEDICARE PART A & B [facility] MEDICARE SUPPLEMENT [facility] MEDICARE SUPPLEMENT MEDICARE PART A & B [facility] MEDICARE SUPPLEMENT MEDICARE PART A & B MEDICARE SUPPLEMENT MEDICARE PART A & B Member Subscriber Plan / Payer (Ef fective 2023-) Name:Bobby Vásquez Member ID:[id number] Relation to Subscriber:Self Name:Bobby Vásquez Subscriber ID:[id number] Payer ID:[id number] Group ID:Not on file Type:Medicare Address: Close [address] MEDICARE SUPPLEMENT Care Teams Kosher Dietary Service Manager Relationship Specialty Start Date End Date Sarbjit Russell MD [address] [place] [address] [address] [place] [address] PCP - General Internal Medicine 07/26/24 Additional Source Comments The information contained in this document represents components of the legal health record. It is not the complete legal health record.[facility]
--- OUTSIDE RECORDS SUMMARY | 2024-11-07 11:04 | XMS_ITS | Patient Health Record ---
Author Organization [facility] Address [address] [place] [address] Care Team Providers Care Salvage Laborer Name Role Phone Nash Garcia MD Primary Care Provider John Crouch Unavailable [phone] Allergies No Known Allergies Reason For Referral [...] Indomethacin 50 MG TAKE 1 CAPSULE BY [facility] 3 TIMES A DAY NEEDED [...] Problem Screening for malignant neoplasm of colon (764441632) Encounter for screening for malignant neoplasm of colon (Z12.11) Active confirmed Problem Constipation (27051255) Constipation (K59.00) Active confirmed Problem Diverticular disease of colon (761351431) Diverticulosis of large intestine without perforation or abscess without bleeding (K57.30) Active confirmed Plan Of Treatment Future Test Test Name Order Date COLONOSCOPY 06/27/2011 COLONOSCOPY 01/28/2022 Insurance Providers Payer Name Payer Address Payer Phone Subscriber Number Group Number Insured Name Patient Relationship to Insured Coverage Start Date Coverage End Date [facility] [address] [facility] [phone] [id number] CALLUM LINARES Self - patient is the insured Medical (General) History Medical History History ICD Code Hyperlipidemia HTN Anal fissure-treated medically many year s ago Denies IA,CVA,Lung disease. Renal insufficiency in relat ion to his diabetes and hypertension-he is followed by a milk sampler DM Screening Colonoscopy 08/2011 with only h yperplastic polyps Surgical History Surgery Date(Month/Year) Removal of cyst on back
== END 2024-11-07 10:20 | disposition home or self-care (01) ==
LOC: HO.HKA 10:03
PROVIDERS: PCP Internal Medicine; Visit Provider Internal Medicine Nephrology
DX: I10 Essential (primary) hypertension (principal); N18.31 Chronic kidney disease, stage 3a
CPT/HCPCS: 99214

== ENCOUNTER → 2024-11-07 10:02 | Outpatient (BNVA) | payer MEDICARE, OTHER, SELFPAY | PROVIDERS: PCP Internal Medicine; Visit Provider Internal Medicine Nephrology | DX: I12.9 Hypertensive chronic kidney disease with stage 1 through stage 4 chronic kidney disease, or unspecified chronic kidney disease (principal); N18.31 Chronic kidney disease, stage 3a | CPT/HCPCS: 99212 ==

== ENCOUNTER 2025-02-20 10:12 | Outpatient (REF) | payer MEDICARE, OTHER, SELFPAY ==
[2025-02-20 10:51] LABS: MANUAL DIFF FLAG NO
[2025-02-20 11:15] LABS: Hematocrit 45.0 % (42.0-52.0); Hemoglobin 14.8 g/dl (14.0-18.0); Imm Gran Abs Auto 0.06 X10*3/uL (0.00-0.03); Imm Gran Pct Auto 0.7 % (0.0-0.4); Lymphocytes Absolute Auto 1.8 X10*3/uL (1.2-4.9); Mean Corpuscular HGB Conc 32.9 g/dl (31.0-36.0); Mean Corpuscular Hemoglobin 28.5 pg (27.0-33.0); Mean Corpuscular Volume 86.5 fL (80.0-98.0); NRBC Abs Auto 0.000 X10*3/uL (0.0-0.012); NRBC Pct Auto 0.0 /100WBC (0.0-0.2); Platelet Count 224 X10*3/uL (160-400); Red Blood Count 5.20 X10*6/uL (4.60-5.80); White Blood Count 8.6 X10*3/uL (4.8-10.8)
[2025-02-20 11:40] LABS: Appearance Urine Clear; Glucose Urine UA >=1000 mg/dL (Negative); PH 6.5 (5.0-9.0); Specific Gravity - Urine >= 1.030 (1.005-1.025); UMIC TRIGGER UACC YES
[2025-02-20 12:00] LABS: Hemoglobin A1C 150.5964 umol/L
[2025-02-20 12:33] LABS: Alanine Aminotransferase 23 U/L (0-40); Albumin Level 4.3 g/dL (3.5-5.0); Alkaline Phosphatase 59 U/L (39-117); Anion Gap 11 (12-20); Aspartate Amino Transferase 24 U/L (5-37); Blood Urea Nitrogen 22 mg/dL (9-16); Calcium 9.6 mg/dL (8.4-10.2); Carbon Dioxide 29 mmol/L (22-29); Chloride 106 mmol/L (96-108); Cholesterol 161 mg/dL (<200); Estimated Glomerular Filt Rate 56; HDL Cholesterol 41 mg/dL (>40); Potassium 4.4 mmol/L (3.3-5.1); Sodium 142 mmol/L (135-145); Total Protein 7.4 g/dL (6.5-8.0); Triglycerides 97 mg/dL (<150); Uric Acid 5.7 mg/dL (3.4-7.0)
[2025-02-20 12:45] LABS: Microalbum/Creatinine Ratio Ur 13.0 ug/mg cr (<30)
[2025-02-20 13:57] LABS: Folate 8.6 ng/mL (> or = 4.0); Vitamin B12 322 pg/mL (200-900)
== END 2025-02-20 10:13 | disposition home or self-care (01) ==
LOC: HO.LAB 10:12
PROVIDERS: PCP Internal Medicine; Visit Provider Internal Medicine
DX: E11.9 Type 2 diabetes mellitus without complications (principal); D64.9 Anemia, unspecified; E78.00 Pure hypercholesterolemia, unspecified; M10.9 Gout, unspecified; E55.9 Vitamin D deficiency, unspecified; E53.8 Deficiency of other specified B group vitamins
CPT/HCPCS: 36415; 80053; 80061; 81001; 82043; 82306; 82570; 82607; 82746; 83036; 84443; 84550; 85025

== ENCOUNTER 2025-02-24 09:08 | Outpatient (AMB) | payer MEDICARE, OTHER, SELFPAY ==
[2025-02-24 09:16] VITALS: BP 110/74; PULSE 85; O2SAT 96; BMI 39.5
--- NOTE | 2025-02-24 09:16 | MHC.PC.OV ---
Vital Signs 02/24/25 09:16 Height 5 ft 11 in Weight 283 lb BMI 39.5 BP 110/74 Blood Pressure Location Lt brachial Position Sitting Pulse 85 Pulse Source Pulse Oximeter Pulse Oximetry (%) 96 Oxygen Delivery Method Room Air Intake Visit Reasons: [facility] f/u Choirmaster Required: No Accompanied by: Self / Same As Patient Allergies No Known Allergies Allergy (Verified 02/24/25 09:42) Medication List - Last Reconciled 02/24/25 by Sarbjit Russell MD allopurinol 300 mg PO DAILY atorvastatin 40 mg PO DAILY blood pressure test kit-large As directed blood sugar diagnostic (Accu-Chek Guide test strips) As directed one time a day blood-glucose meter (Accu-Chek Guide Me Glucose Meter) As directed empagliflozin (Jardiance) 10 mg PO DAILY indomethacin 25 mg PO TID PRN lansoprazole 30 mg PO DAILY lisinopril 40 mg PO DAILY metoprolol tartrate 100 mg PO BID semaglutide (Ozempic) 1 mg subcut QWEEK Tobacco use date assessed: 02/24/25 Fall risk assessment: No Falls in past year Last assessed Fall Risk: 02/24/25 Dental Screening Dental Screen Date: 02/24/25 Did you have a dental visit in the last 12 months?: Yes Did you have a dental problem in the last 6 months where you did not have access to dental care?: No Was dental information given to patient?: Patient has dentist HPI [facility] f/u HPI Details Patient comes in today for his follow up visit States that he feels well He denies any headaches or dizziness Denies any chest pains, no increased SOB No nausea/vomiting, no abdominal pain No change in bowel habits noted He had his follow up labs done a few days ago - to discuss his results [facility] Medical History (Updated 02/24/25 @ 10:46 by Sarbjit Russell MD) Obesity (BMI 30-39.9) Morbid obesity with BMI of 40.0-44.9, adult GERD without esophagitis Chronic kidney disease, stage III (moderate) Essential hypertension CKD (chronic kidney disease) stage 2, GFR 60-89 ml/min Leukocytosis Acute kidney injury Kidney disease Type 2 diabetes mellitus with obesity Type 2 diabetes mellitus with chronic kidney disease Diabetes mellitus with coincident hypertension Type 2 diabetes mellitus with diabetic polyneuropathy HTN (hypertension) Obesity due to excess calories Hyperlipidemia Diabetes type 2, uncontrolled Diabetes mellitus Surgical History History of colonoscopy Hx of tooth extraction Family History Mother Diabetes Father No problems noted. Social History Household Members: None Housing: House Alcohol intake: never Patient Tobacco Use Status: Former Tobacco user Tobacco use type: Cigarette e-Cigarette/Vaping Use: Never Used Second Hand Smoke Exposure: No Substance Use Type: Former Substance User and Marijuana service: No Current occupational status: employed Cognitive needs: No Hearing needs: No Vision needs: No Questionnaire PHQ-9 Over the last 2 weeks, how often have you been bothered by any of the following problems? 1. Little interest or pleasure in doing things: not at all 2. Feeling down, depressed, or hopeless: not at all 3. Trouble falling or staying asleep, or sleeping too much: not at all 4. Feeling tired or having little energy: not at all 5. Poor appetite or overeating: not at all 6. Feeling bad about yourself - or that you are a failure or have let yourself or your family down: not at all 7. Trouble concentrating on things, such as reading the newspaper or watching television: not at all 8. Moving or speaking so slowly that other people could have noticed. Or the opposite - being so fidgety or restless that you have been moving around a lot more than usual: not at all 9. Thoughts that you would be better off or of hurting yourself in some way: not at all Total score: 0 Depression Screening Interpretation: Negative Depression Screening Done: Yes 35721 - PHQ-9 Billing: Yes Source: Developed by Drs. John Yan, Cherrie Peralta, Christopher Burt and colleagues, with an educational ney from [employer]. Thrive Questionnaire Date Thrive assessed: 02/24/25 I am a: Patient What is your living situation today?: I have a steady place to live Within the past 12 months, did the food you bought not last and you didn't have the money to get more?: Never true Within the past 12 months, did you worry whether your food would run out before you got money to buy more?: Never true Do you have trouble paying for medicines?: No Do you have trouble getting transportation to medical appointments?: No Do you have trouble paying your heating and electricity bill?: No Do you have trouble taking care of your child, family member or friend?: No Do you have trouble with day-to-day activities such as bathing, preparing meals, shopping, managing finances, etc.?: No Are you currently unemployed and looking for a job?: No Are you interested in more education?: No Please select the resources that you would like help with: None Currently or been in a relationship where the following occur: I choose not to answer THRIVE Score: 0 AUDIT C Alcohol Use Questionnaire (AUDIT-C) 1. How often do you have a drink containing alcohol?: Never 3. How often do you have six or more drinks on one occasion?: Never Total Score: 0 Score Reviewed/Action Taken: Yes SMOOTH-7 AMB Questionnaire SMOOTH-7 Date SMOOTH - 7 assessed: 02/24/25 Feeling nervous, anxious, or on edge: 0 = Not at all Not being able to stop or control worryin = Not at all Worrying too much about different things: 0 = Not at all Trouble relaxin = Not at all Being so restless that it is hard to sit still: 0 = Not at all Becoming easily annoyed or irritable: 0 = Not at all Feeling afraid as if something awful might happen: 0 = Not at all Total SMOOTH-7 score (0-4 normal; 5-9 mild; 10-14 moderate; 15-21 severe): 0 Source: Developed by Drs. John Yan, Cherrie Peralta, Christopher Burt and colleagues, with an educational ney from [employer]. Review of Systems Const Denies chills, Denies fatigue, Denies fever(s) and Denies headache(s) ENT Denies dysphagia, Denies dizziness, Denies otalgia, Denies headache(s), Denies neck pain, Denies odynophagia and Denies sore throat Card Denies chest pain, Denies palpitations and Denies dyspnea Resp Denies chest congestion, Denies cough and Denies dyspnea GI Denies abdominal pain, Denies constipation, Denies dysphagia, Denies diarrhea, Denies nausea, Denies odynophagia and Denies vomiting Denies difficulty urinating, Denies dysuria, Denies nocturia and Denies urinary frequency Musc Denies back pain and Denies neck pain Skin/Breast Denies rash Neuro Denies dizziness and Denies headache(s) Psych Denies anxiety Endo Denies fatigue and Denies palpitations Physical exam (Primary Care) Vital Signs: Last Vital Signs Pulse 85 02/24/25 09:16 BP 110/74 02/24/25 09:16 Pulse Ox 96 02/24/25 09:16 Oxygen Delivery Method Room Air 02/24/25 09:16 BMI result Body Mass Index 39.5 Tobacco/Smoking Status: Tobacco use Status Tobacco use date assessed 02/24/25 02/24/25 09:22 Patient Tobacco Use Status Former Tobacco user 02/24/25 09:22 Tobacco use type Cigarette 02/24/25 09:22 e-Cigarette/Vaping Use Never Used 02/24/25 09:22 PHQ-9: PHQ-9 Score PHQ-9: Total score 0 02/24/25 09:22 Depression Screening Interpretation: Negative Thrive Assessment: Date of Thrive Assessment Date Thrive assessed 02/24/25 02/24/25 09:22 Currently or been in a relationship where the following occur: I choose not to answer Const General: no acute distress and alert HENMT Throat: Yes posterior oropharynx normal and Yes tonsils normal (no TP congestion) Neck Neck: Yes supple and No lymphadenopathy Thyroid: Thyroid normal Resp Auscultation: clear to auscultation bilaterally, no rales and no wheezes Cardio Rate: regular rate Rhythm: regular rhythm Heart sounds: no murmurs GI Palpation (GI): Soft to palpation and nontender Auscultation: normal bowel sounds General: Yes no CVA tenderness Back/Spine/Pelvis Back: no CVA tenderness Thoracic/Lumbar Spine: No lumbar spinal tenderness Skin Rashes: no rashes Extrem General: Yes no clubbing, cyanosis or edema Results Reviewed Results Reviewed: Laboratory Tests 02/20/25 02/20/25 10:45 10:49 WBC 8.6 Hgb 14.8 Hct 45.0 Plt Count 224 Sodium 142 Potassium 4.4 Creatinine 1.28 Estimated GFR 56 Fasting Glucose 96 Hemoglobin A1c % 5.8 Uric Acid 5.7 Calcium 9.6 AST 24 ALT 23 Triglycerides 97 Cholesterol 161 LDL Cholesterol, Calc 101 H HDL Cholesterol 41 Vitamin B12 322 25-OH Vitamin D Total 32.8 TSH 1.26 Ur Specific [place] >= 1.030 H Urine Protein Trace Urine Glucose (UA) >=1000 H Urine Blood Negative Urine Nitrite Negative Ur Leukocyte Esterase Negative Microalb/Creat Ratio 13.0 Coding Level of Care Code Est Pt Level 4 (65769) Add On Problem Visit Only Diagnoses Type 2 diabetes mellitus with diabetic polyneuropathy, without long-term current use of insulin E11.42 Diabetes mellitus type: type 2 Diabetes mellitus truck terminal manager insulin use: without truck terminal manager use Diabetes mellitus complication status: with neurologic complications Diabetes mellitus complication detail: with polyneuropathy Stage 3a chronic kidney disease N18.31 Chronic kidney disease stage 3 subtype: stage 3a (GFR 45-59) Essential hypertension I10 Pure hypercholesterolemia E78.00 Hyperlipidemia type: pure hypercholesterolemia Chronic gout without tophus, unspecified cause, unspecified site [id number] Gout site: unspecified site Gout etiology: unspecified cause Chronicity: chronic Presence of tophus: without tophus GERD without esophagitis K21.9 Obesity (BMI 30-39.9) E66.9 Additional Codes PHQ-9 - 32008 - PHQ-9 Billing: Yes ([id number]) Assessment & Plan Assessment & Plan (1) Diabetes mellitus: Code(s): E11.9 - Type 2 diabetes mellitus without complications Category: Medical Qualifiers: Diabetes mellitus type: type 2 Diabetes mellitus truck terminal manager insulin use: without fci use Diabetes mellitus complication status: with neurologic complications Diabetes mellitus complication detail: with polyneuropathy Qualified Code(s): E11.42 - Type 2 diabetes mellitus with diabetic polyneuropathy Plan: His HgbA1c was at 5.8% on his labs done a few days ago (was at previously at 5.6% a few months ago in September 2024) - goal is ideally <6.5% Reinforced diabetic diet Continue Jardiance 10 mg QD and Semaglutide 1 mg SQ once a week (2) Chronic kidney disease, stage III (moderate): Code(s): N18.30 - Chronic kidney disease, stage 3 unspecified Category: Medical Qualifiers: Chronic kidney disease stage 3 subtype: stage 3a (GFR 45-59) Qualified Code(s): N18.31 - Chronic kidney disease, stage 3a Plan: His renal function is stable on his recent labs Reinforced again that tight control of his blood pressure and blood sugar will help preserve and stabilize his renal function Continue Jardiance 10 mg QD Will continue to monitor his renal function regularly Follow up with nephrology as scheduled (3) Essential hypertension: Code(s): I10 - Essential (primary) hypertension Category: Medical Plan: Reinforced low sodium diet - goal is systolic BP of 120 mm or less His blood pressure is currently much better controlled Continue Lisinopril 40 mg QD and Metoprolol 100 mg BID He is reminded to continue monitoring his blood pressure regularly (4) Hyperlipidemia: Code(s): E78.5 - Hyperlipidemia, unspecified Category: Medical Qualifiers: Hyperlipidemia type: pure hypercholesterolemia Qualified Code(s): E78.00 - Pure hypercholesterolemia, unspecified Plan: Results of his labs done a few days ago reviewed and discussed with patient Reinforced low cholesterol diet Continue Atorvastatin 40 mg QD Will recheck his labs and fasting lipids in 4 months for follow up (5) Gout: Code(s): M10.9 - Gout, unspecified Category: Medical Qualifiers: Gout site: unspecified site Gout etiology: unspecified cause Chronicity: chronic Presence of tophus: without tophus Qualified Code(s): [id number].[id number] - Chronic gout, unspecified, without tophus (tophi) Plan: His serum uric acid remains normal at 5.7 on his labs done a few days ago Reinforced low purine diet Continue Allopurinol 300 mg QD and Indomethacin 25 mg TID PRN (6) GERD without esophagitis: Code(s): K21.9 - Gastro-esophageal reflux disease without esophagitis Category: Medical Plan: Dietary restrictions reinforced Continue Lansoprazole 30 mg QD (7) Obesity (BMI 30-39.9): Code(s): E66.9 - Obesity, unspecified Category: Medical Plan: Reinforced diet/exercise as tolerated/lose weight - he is on Semaglutide for his diabetes and has been able to lose some weight since his last visit Plan Follow up in 4 months Orders: Orders Hemoglobin A1c 4 Months E11.9 - Type 2 diabetes mellitus without complications Lipid Panel 4 Months E78.00 - Pure hypercholesterolemia, unspecified Complete Blood Count Auto Diff 4 Months D64.9 - Anemia, unspecified Comprehensive [place]. Panel Fast 4 Months E78.00 - Pure hypercholesterolemia, unspecified Microalbumin, Random (w Creat) 4 Months E11.9 - Type 2 diabetes mellitus without complications TSH reflex Free T4 4 Months E78.00 - Pure hypercholesterolemia, unspecified UA CC w/rflx Micro + Cult 4 Months R30.0 - Dysuria Vitamin B12 and Folate 4 Months E53.8 - Deficiency of other specified B group vitamins Vitamin D 25-OH Total 4 Months E55.9 - Vitamin D deficiency, unspecified Uric Acid 4 Months M10.9 - Gout, unspecified
== END 2025-02-24 09:48 | disposition home or self-care (01) ==
LOC: HO.HMCH 09:09
PROVIDERS: PCP Internal Medicine; Visit Provider Internal Medicine
DX: I12.9 Hypertensive chronic kidney disease with stage 1 through stage 4 chronic kidney disease, or unspecified chronic kidney disease (principal); E11.42 Type 2 diabetes mellitus with diabetic polyneuropathy; N18.31 Chronic kidney disease, stage 3a; E66.9 Obesity, unspecified; Z68.39 Body mass index [BMI] 39.0-39.9, adult; E78.00 Pure hypercholesterolemia, unspecified; M1A.9XX0 Chronic gout, unspecified, without tophus (tophi); K21.9 Gastro-esophageal reflux disease without esophagitis

== ENCOUNTER → 2025-02-24 09:08 | Outpatient (BNVA) | payer MEDICARE, OTHER, SELFPAY | PROVIDERS: PCP Internal Medicine; Visit Provider Internal Medicine | DX: E11.42 Type 2 diabetes mellitus with diabetic polyneuropathy (principal); I10 Essential (primary) hypertension; E78.00 Pure hypercholesterolemia, unspecified; M1A.9XX0 Chronic gout, unspecified, without tophus (tophi); K21.9 Gastro-esophageal reflux disease without esophagitis; E66.9 Obesity, unspecified; Z13.31 Encounter for screening for depression; Z13.39 Encounter for screening examination for other mental health and behavioral disorders | CPT/HCPCS: 96127; 99212 ==